=== PATIENT | male | born 1935 | race Caucasian/White ===

== ENCOUNTER 2017-09-11 15:04 | Inpatient (IN) | payer MEDICARE, SELFPAY ==
[2017-09-11] VITALS (13 sets, daily range): BP systolic 133–173; BP diastolic 72–93; PULSE 90–122; RESP 18–27; TEMP 36.8–37; O2SAT 93–99; BMI 23.2; BMI 22.1
--- NOTE | 2017-09-11 15:35 | EKG12_ITS ---
Test Reason : REPEAT Blood Pressure : / mmHG Vent. Rate : 117 BPM Atrial Rate : 117 BPM P-R Int : 000 ms QRS Dur : 076 ms QT Int : 334 ms P-R-T Axes : 000 -59 077 degrees QTc Int : 465 ms Normal sinus rhythm with premature ventricular or aberrantly conducted complexes Low voltage QRS Left anterior fascicular block Inferior infarct , age undetermined Abnormal ECG Confirmed by RACHID DE LUNA ([id number]), subeditor SULAIMAN CM ([id number]) on 09/13/2017 2:42:53 PM Referred By: HOWIE Confirmed By:RACHID DE LUNA
--- NOTE | 2017-09-11 15:35 | RAD_ITS ---
STUDY: X-RAY CHEST REASON FOR EXAM: Male, 82 years old. Shortness of breath. TECHNIQUE: Portable frontal COMPARISON: June 16, 2015 FINDINGS: There are right basilar ill-defined opacities. Normal size heart. Normal mediastinum and gen. Normal visualized pulmonary arteries. There is atherosclerotic calcification of the aortic arch with tortuosity. Normal visualized thoracic spine. Normal visualized ribs, clavicles, and shoulders. There is no demonstrated abnormality of the visualized soft tissue structures of the upper abdomen. RAD/Chest 1 View (Portable) IMPRESSION: Right basilar ill-defined opacities may reflect underlying atelectasis and/or evolving pneumonia. Electronically Signed: Gricelda Acosta MD at 17:51 EST Tel , Service support ,
--- NOTE | 2017-09-11 15:38 | ED.DCSUM_ITS ---
- ER Visit Summary Date of Service: 09/11/17 Chief Complaint: Shortness of breath History of Present Illness: The patient is a 82 M presenting with shortness of breath that started yesterday. He complains of cough and states it is sometimes productive. He denies fever. He states that the shortness of breath is worsened when he exerts himself. He does not have home O2. He states he ran out of his blood pressure medications a couple of days ago. He is a smoker. Physical Examination: Vitals are stable. Patient is afebrile. Alert no acute distress. HEENT exam is unremarkable. Neck is supple. Lungs are diminished bilaterally. Heart is regular rate and rhythm. Abdomen is soft nontender nondistended. Extremities are unremarkable. Skin is warm and dry. No focal neurologic deficit. Remainder of exam is unremarkable. Emergency Department Course and Treatment: Patient was given albuterol and atrovent aerosols. EKG is sinus tachycardia rate of 114. He was given IV fluid. He later began to complain of nausea and was given Zofran. CBC unremarkable. Chemistries show glucose 114. Troponin is negative. D-dimer is negative. Lactic acid is 3.0. Influenza negative. Chest x-ray was obtained and shows evolving pneumonia. He later complained of chest pain. He was given aspirin. Repeat EKG was obtained and shows afib rate of 117. He was given metoprolol. He was given a GI cocktail. Blood cultures were sent. He was given Levaquin IV. Discussed with Dr Woo for admission. Disposition: Admission Impression: Severe sepsis, community acquired pneumonia, atrial fibrillation This note was generated with [employer] dictation software. It may contain incorrect words, spelling, and punctuation that were not noted in review of the chart prior to signing ED Disposition - Plan for ED Patient: Disposition: Acute Care Hospital [facility] Chief Complaint: Shortness of Breath
[2017-09-11] MEDS: Ipratropium/Albuterol Sulfate 3 ML AMPUL.NEB INHALATION ×2 (15:48→23:00)
[2017-09-11] MEDS: Albuterol 2.5 MG/3 ML VIAL.NEB. INHALATION ×2 (16:07→16:17)
[2017-09-11 16:11] LABS: Absolute Neutrophil Count 7.9 X10^3/uL (2.0-7.7); Basophil# 0.03 X10^3/uL; Basophil% 0.3 % (0-1); Eosinophil# 0.02 X10^3/uL; Eosinophils% 0.2 % (0-5); Hematocrit 39.5 % (40-54); Hemoglobin 13.8 g/dl (13.0-16.5); Mean Corp Hgb Conc 34.9 g/gl (32-36); Mean Corpuscular Hgb 32.8 pg (27.0-32.0); Mean Corpuscular Volume 93.8 fL (80-94); Mean Platelet Vol. 9.4 fl (6.2-12.0); Monocyte# 0.47 X10^3/uL; Monocyte% 4.5 % (0-10); Neutrophil # 7.85 X10^3/uL (2.7-7.7); Neutrophil % 74.9 % (47-70); Platelet Count 316 K/mm3 (150-450); RBC Distribution Width CV 13.7 % (11.6-14.6); RBC Distribution Width SD 46.8 fl (35.1-43.9); Red Blood Count 4.21 M/mm3 (4.6-6.2); White Blood Count 10.5 K/mm3 (4.4-11.0)
[2017-09-11] MEDS: Ondansetron 4 MG/2 ML Vial IV (16:12)
[2017-09-11 16:15] LABS: Anion Gap 15 (5-15); BUN 10 mg/dL (7-18); Calcium,Total 8.6 mg/dL (8.5-10.1); Chloride 101 mmol/L (98-107); Creatinine, Serum 0.83 mg/dL (0.70-1.30); EST Glomerular Filtration Rate 94 mL/min (>60); Est Glom Filt Rate - Afr Amer 114 mL/min (>60); Estimated Creatinine Clearance 73.08 ml/min; Glucose 114 mg/dL (74-106); POSITIVE COUNT NO; POSITIVE DIFFERENTIAL NO; POSITIVE MORPHOLOGY NO; Potassium 4.1 mmol/L (3.5-5.1); Sodium Level 137 mmol/L (136-145)
[2017-09-11 16:25] LABS: D-Dimer Quantitative (DVT/PE) 0.35 FEU/ug/m (0.27-0.49)
[2017-09-11] MEDS: 0.9% Normal Saline 1,000 ML 999 ML IV (17:52)
--- NOTE | 2017-09-11 18:01 | NURSING ---
DR AMIN IN WITH PATIENT
--- NOTE | 2017-09-11 18:03 | EKG12_ITS ---
Test Reason : SOB Blood Pressure : / mmHG Vent. Rate : 114 BPM Atrial Rate : 114 BPM P-R Int : 232 ms QRS Dur : 076 ms QT Int : 330 ms P-R-T Axes : 000 -54 057 degrees QTc Int : 454 ms Sinus tachycardia with 1st degree A-V block Left anterior fascicular block Inferior infarct , age undetermined Abnormal ECG Confirmed by RACHID DE LUNA ([id number]), editorial director SULAIMAN CM ([id number]) on 09/13/2017 2:43:08 PM Referred By: HOWIE/PASTOR Confirmed By:RACHID DE LUNA
[2017-09-11] MEDS: Aspirin 325 MG Tablet PO (18:12)
[2017-09-11 19:45] LABS: Reflex Lactate? Y
[2017-09-11] MEDS: 0.9% Normal Saline 1,000 ML 100 ML IV (20:12)
[2017-09-11] MEDS: Metoprolol Tartrate 25 MG Tablet 50 MG PO (20:12)
[2017-09-11] MEDS: Mag Hydrox/Al Hydrox/Simeth 30 ML UDC PO (20:12)
--- NOTE | 2017-09-11 20:13 | ECHOD_ITS ---
Reason For Study: AFIB Procedure This was a 2D Doppler, Color Flow transthoracic echocardiogram. Exam performed portable in patient room. Left Ventricle Normal size and thickness. The estimated ejection fraction is 65 %. Stage 1 diastolic dysfunction. No regional wall motion abnormalities noted. Right Ventricle Normal size and thickness. Normal systolic function. Atria Normal left atrium. Normal right atrium. Normal atrial septum. Mitral Valve The mitral valve is structurally normal. No prolapse or stenosis seen. Tricuspid Valve Normal tricuspid valve. Trivial tricuspid valve insufficiency. Right ventricular systolic pressure estimated to be 31 mmHg. Aortic Valve Normal aortic valve. Trisinus/trileaflet aortic valve. Pulmonic Valve Normal pulmonic valve. Great Vessels Normal aortic root. Normal arch. Normal inferior vena cava. Inferior vena cava collapse with sniff. Pericardium/Pleural No pericardial effusion. MMode/2D Measurements & Calculations LVIDd: 4.0 cm IVSd: 0.98 cm Ao root diam: 3.8 cm RVDd: 3.1 cm LVPWd: 0.92 cm LAV(MOD-bp): 32.5 ml LA A4 area: 14.4 cm2 RA A4 area: 9.9 cm2 LAV(MOD-bp) Indexed: 17.1 ml/m2 LAV(MOD-sp2): 28.2 ml LAV(MOD-sp4): 36.1 ml Doppler Measurements & Calculations MV E max jordana: 61.6 cm/sec Ao V2 max: 124.1 cm/sec LV V1 max: 84.9 cm/sec MV A max jordana: 105.8 cm/sec Ao max P.2 mmHg LV V1 max P.9 mmHg MV E/A: 0.58 TR max jordana: 254.0 cm/sec TR max P.8 mmHg Interpretation Summary The estimated ejection fraction is 65 %. Stage 1 diastolic dysfunction. Trivial tricuspid valve insufficiency. Right ventricular systolic pressure estimated to be 31 mmHg. In comparison to echo report dated 03/15/2015, no appreciable changes noted. Pt appears to be in NSR. Ordering Physician: Alexys Woo Referring Physician: MARIBELL GANN Performed By: Yen Last, CHEL, RVT
--- NOTE | 2017-09-11 21:16 | HP.PCM_ITS ---
Problem List (1) Shortness of breath Status: Acute History of Present Illness Date of Admission: 09/11/17 Chief Complaint: Shortness of breath The patient is a 82 year old M in the emergency room at [facility] with a chief complaint of increasing shortness of breath ?48 hours. Patient denied any fever, chills, diaphoresis, or purulent sputum production. Patient states he has been coughing but bringing up white sputum. Patient is a poor informant, he had a diagnosis in the past of COPD and denied that he was told that he had such a diagnosis. Patient is also noncompliant with his medications and has been off of his metoprolol for an unknown length of time. Workup in the emergency room included a chest x-ray which showed a right lower lobe infiltrate, CBC which showed a normal white count, lactic acid was elevated at 3, patient's respiratory rate and heart rate were elevated, at the time of my examination, patient appeared to be going into atrial fibrillation. In addition, at the time of my examination, patient complained of lower chest discomfort which I was unable to determine the etiology, he described the chest pain as located over his lower chest area and he described it as a burning sensation. Patient's EKG showed no evidence of ischemic changes, patient's first set of cardiac enzymes were unremarkable and the patient was given a GI cocktail in the emergency room, I did not follow up with him afterwards to see if it helped his symptoms as he was admitted to the floor. On examination, patient had scattered expiratory rhonchi bilaterally, heart rate and rhythm was irregular, limited lower extremity edema was noted, patient did not appear to be in respiratory distress although he was on nasal cannula oxygen at the time. His pulse ox was 96% on 2 L. Patient will be admitted to PCU for severe sepsis, lactic acid will be repeated, patient was given IV Levaquin in the emergency room and this will be continued on the floor, patient will also have his cardiac enzymes cycled, I have started him on Lopressor 50 mg twice a day and he got a dose in the emergency room of 50 mg orally. Patient will have an echocardiogram performed and a follow-up chest x-ray tomorrow, sputum cultures were ordered and follow-up labs. Patient was vague about his alcohol intake, he told me he drinks 8-10 beers a day and then told me he does not do it every day, I decided not to write for CIWA scoring at this time. Past Medical History Past Medical History (Chronic Problems): Chronic Problems Chronic alcohol abuse (Chronic) History of atrial fibrillation (Chronic) Tobacco dependence syndrome (Chronic) History of hypothyroidism (Chronic) History of COPD (Chronic) Allergies No Known Allergies Allergy (Verified 06/16/15 09:23) Home Medications: Ambulatory Orders Medication Instructions Recorded Metoprolol Tartrate [Lopressor 25 mg PO BID #60 tablet 04/01/15 (beta luzmaria)] Surgical History: cataract Psychiatric History: No pertinent psych hx Lives: With Family Smoking Status: Current every day smoker Tobacco Use: Cigarettes Alcohol: Heavy Drugs: None - *Family History Maternal History Items: No pertinent history Paternal History Items: No pertinent history Review of Systems Constitutional: Reports: Malaise, Fatigue. Denies: Anorexia, Chills, Fever, Night Sweats, Weakness, Weight Change Eyes: Denies: Blurred vision, Cataracts, Conjunctivae Inflammation, Double vision, Drainage HEENT: Denies: Difficulty Hearing, Difficulty Swallowing, Dysphasia, Ear Pain, Eye Pain, Head Aches, Hearing Changes, Nasal bleeding, Nasal Congestion, Post Nasal Drip Cardiovascular: Reports: Chest Pain - Patient describes his lower chest pain as burning in nature. Denies: Claudication, Chest Pressure, Chest Tightness, Edema , Heaviness, Light Headedness, Orthopnea, Palpitations, Paroxysmal Noc. Dyspnea , Syncope Respiratory: Reports: Cough, Shortness of Breath, Shortness of breath at rest, Shortness of breath upon exertion, Sputum production - White sputum production. Denies: Hemoptysis Gastrointestinal: Denies: Abdominal Pain, Constipation, Diarrhea, Hematemesis, Hematochezia, Nausea, Melena, Vomiting Genitourinary: Denies: Dysuria, Frequency, Hematuria, Hesitancy, Incontinence, Nocturia, Urgency Musculoskeletal: Denies: Arm Pain, Back Pain, Foot Pain, Hand Pain, Joint Pain, Joint stiffness, Joint swelling, Joint Tenderness, Leg Pain Skin: Denies: Dryness, Jaundice, Pruritis, Rash Neurological: Denies: Blurred vision, Double vision, Change in Speech, Slurred speech, Difficulty swallowing, Focal weakness, Headaches, Incoordination, Numbness, Tingling Psychiatric: Denies: Anxiety, Depression, Homicidal Ideations, Suicidal Ideations Endocrine: Denies: Change in Body Habitus, Heat/ Cold Intolerance, Polydipsia, Polyuria Hematologic/ Lymphatic: Denies: Adenopathy, Anemia, Easy Bruising, Easy Bleeding , Petechiae, Purpura VTE Information - Inpt Only VTE Present on Admission: No VTE Mechan Device Prophylaxis: None VTE Pharm Prophylaxis ordered?: Yes Patient Problems: Active and Suspected Problems Shortness of breath (Acute) - Physical Exam General: Alert, Oriented x3, Cooperative, No apparent distress, Well developed, Well nourished HEENT: Atraumatic, PERRLA, EOMI, Normocephalic Oral: Moist Mucosa Neck: Supple, No JVD, Negative Carotid Bruits, No Nuchal Rigidity, Trachea Midline, Thyroid Normal Size and Texture Lungs: Normal air movement, Rhonchi - scattered expiratory rhonchi are noted bilaterally Cardiovascular: No murmurs, PMI Normal, Irregular Rate, No rub noted Abdomen: Bowel Sounds Present, Soft, Non Tender, Non-Distended, No hernias noted Extremities: No clubbing, No cyanosis, No edema, Capillary Refill Less than 3 Seconds Skin: No rashes, No breakdown Musculoskeletal: No Tenderness to Palpation of Joints or Extremities Neurological: Cranial nerves II-XII grossly intact, Neuro grossly intact, Sensory exam intact to light touch and pain, Coordination normal Psych/Mental Status: Normal Affect, Appropriate, - - he is a poor informant regarding his medical history Vital Signs Temp Pulse Resp BP Pulse Ox 98.6 F 108 H 18 137/77 H 96 09/11/17 19:39 09/11/17 20:12 09/11/17 19:39 09/11/17 20:12 09/11/17 19:39 Oxygen Flow Rate 2 Oxygen Delivery Method Nasal Cannula Weight: 71.8 kg Body Mass Index (BMI) 22.1 Laboratory Tests Past 24 Hrs 09/11/17 20:05 Lactic Acid 6.2 H* Assessment/Plan Active and Suspected Problems Shortness of breath (Acute) #1 severe sepsis-secondary to community-acquired right lower lobe pneumonia- patient will be maintained on IV Levaquin, aerosol treatments, sputum culture will be obtained if possible, urine antigens for Legionella and strep pneumoniae were ordered. He will need follow-up chest x-ray #2 right lower lobe community-acquired pneumonia-suspect gram-positive bacterial , treatment as above #3 new onset atrial fibrillation-I have chosen not to fully anticoagulate the patient this time, I will order an echocardiogram, cardiac enzymes, and monitor him on telemetry. Patient will resume his beta-blockers, he may need additional cardiac workup #4 chronic obstructive pulmonary disease with noncompliance-patient continues to smoke a pack of cigarettes a day #5 excessive alcohol use-again it is hard to determine how much the patient actually drinks per day, he will be observed for any signs of alcohol withdrawal #6 hypoxia secondary to right lower lobe pneumonia and chronic obstructive pulmonary disease-oxygen saturation will be monitored Code Visit Inpatient E&M: 47698 Init Hosp L3
[2017-09-11] MEDS: 0.9% Normal Saline 1,000 ML IV.SOLN. 1000 ML IV (21:26)
[2017-09-11] MEDS: Pantoprazole Sodium 40 MG Tablet PO (21:26)
[2017-09-11] MEDS: Heparin Injection 5,000 UNITS/ML Syringe 5000 UNITS SC (21:29)
[2017-09-11] MEDS: Atorvastatin Calcium 20 MG Tablet PO (21:29)
[2017-09-11 23:28] LABS: Lactic Acid 3.9 mmol/L (0.4-2.0)
[2017-09-12] VITALS (21 sets, daily range): BP systolic 124–147; BP diastolic 67–89; PULSE 91–114; RESP 16–30; TEMP 36.4–37; O2SAT 96–99
[2017-09-12 02:09] LABS: Bacteria 0 SEEN /hpf (None Seen); Mucous, Urine 0 SEEN /hpf (<or=2+); Red Blood Cells-Urine 0 SEEN /hpf (0-5)
[2017-09-12 02:11] LABS: Color, Urine Yellow (Yellow); Glucose, Dipstick 1000 mg/dl (Normal); Ketone-Dipstick 15 mg/dl (Negative); Leukocyte Esterase-Dipstick 25 /ul (Negative); Nitrite-Dipstick Positive (Negative); Occult Blood-Urine 10 /ul (Negative); Protein-Dipstick 15 mg/dl (Negative); Urine Bilirubin Dipstick Negative (Negative); Urine Clarity Clear (Clear); Urine Urobilinogen Normal (Normal)
[2017-09-12 02:19] LABS: Amorphous Sediment 1+; Squamous Epithelial Cells - UA 10-25 SEEN /hpf (0-5); White Blood Cells 0-5 SEEN /hpf (0-5)
[2017-09-12] MEDS: 0.9% Normal Saline 1,000 ML 100 ML IV ×2 (03:42→19:48)
[2017-09-12] MEDS: Heparin Injection 5,000 UNITS/ML Syringe 5000 UNITS SC (05:10)
[2017-09-12 05:56] LABS: Hematocrit 37.7 % (40-54); Hemoglobin 12.7 g/dl (13.0-16.5); Mean Corp Hgb Conc 33.7 g/gl (32-36); Mean Corpuscular Hgb 32.2 pg (27.0-32.0); Mean Corpuscular Volume 95.7 fL (80-94); Platelet Count 289 K/mm3 (150-450); RBC Distribution Width CV 13.9 % (11.6-14.6); RBC Distribution Width SD 48.5 fl (35.1-43.9); Red Blood Count 3.94 M/mm3 (4.6-6.2); White Blood Count 13.9 K/mm3 (4.4-11.0)
[2017-09-12 06:23] LABS: Scan Indicated on CBC? Y/N NO
[2017-09-12] MEDS: Ipratropium/Albuterol Sulfate 3 ML AMPUL.NEB INHALATION ×3 (07:29→19:31)
[2017-09-12] MEDS: LORazepam 2 MG/ML Syringe IV ×3 (10:15→21:59)
[2017-09-12] MEDS: Aspirin E.C. 81 MG Tablet PO (10:27)
[2017-09-12] MEDS: Pantoprazole Sodium 40 MG Tablet PO (10:29)
[2017-09-12] MEDS: Metoprolol Tartrate 50 MG Tablet PO ×2 (10:29→21:48)
--- NOTE | 2017-09-12 10:58 | RAD_ITS ---
STUDY: X-RAY CHEST REASON FOR EXAM: Male, 82 years old. Sepsis. TECHNIQUE: AP and lateral views of the chest. COMPARISON: Comparison is made with prior study dated September 11, 2017. FINDINGS: EKG electrodes are seen. Since prior study, there has been progressive infiltrate in the right lower lobe. The left lung is stable. There is no demonstrated pleural abnormality. Normal size heart. Normal mediastinum and gen. Normal visualized pulmonary arteries. There is atherosclerotic calcification of the aortic arch with tortuosity. There are diffuse degenerative changes of the visualized thoracic spine. Normal visualized ribs, clavicles, and shoulders. There is no demonstrated abnormality of the visualized soft tissue structures of the upper abdomen. RAD/Chest PA and Lateral IMPRESSION: Progressive right lower lobe infiltrate. Electronically Signed: Mario Thompson MD at 14:30 EST Tel [phone], Service support ,
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
[2017-09-12] MEDS: Folic Acid 1 MG Tablet PO ×2 (12:53)
[2017-09-12] MEDS: Multivitamins,Ther W-Minerals Tablet 1 TABLET PO ×2 (12:53)
[2017-09-12] MEDS: Thiamine Hydrochloride 100 MG Tablet PO ×2 (12:54)
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
--- NOTE | 2017-09-12 13:24 | CASEMGMT ---
Face to Face with patient for initial transition planning/care coordination assessment. RN NEISHA introduced self and role at [facility], pt voices understanding and consents to assessment at this time. Pt is sitting up in bed in no distress at this time. Pt A/O x4 at this time and answers all questions appropriately at this time. Pt is hard of hearing. Care providers, pharmacy, and demographics verified. See attached link. Pt voices no further concerns/needs at this time. Advised pt to ask for CM if any further questions/concerns/needs arise, voices understanding. CM to follow for any further discharge planning/needs. PLAN: TBD SStcristiane ZAMARRIPA CM
[2017-09-12 14:18] LABS: Thyroid Stim Hormone (TSH) 1.38 uIU/mL (0.358-3.74)
[2017-09-12 18:25] LABS: Lactic Acid 3.8 mmol/L (0.4-2.0)
[2017-09-12 21:37] LABS: Reflex Lactate? Y
[2017-09-12] MEDS: Atorvastatin Calcium 20 MG Tablet PO (21:48)
[2017-09-12] MEDS: 0.9% NaCl Peripheral Flush Adult/Peds IV (22:00)
[2017-09-12 22:38] LABS: Lactic Acid 1.4 mmol/L (0.4-2.0)
[2017-09-13] VITALS (19 sets, daily range): BP systolic 119–155; BP diastolic 67–98; PULSE 72–110; RESP 16–22; TEMP 36.7–37.2; O2SAT 96–98
[2017-09-13] MEDS: 0.9% NaCl Peripheral Flush Adult/Peds IV ×3 (00:57→10:20)
[2017-09-13] MEDS: LORazepam 2 MG/ML Syringe IV ×4 (00:59→10:18)
[2017-09-13] MEDS: Ipratropium/Albuterol Sulfate 3 ML AMPUL.NEB INHALATION ×4 (01:17→20:10)
[2017-09-13] MEDS: 0.9% Normal Saline 1,000 ML 100 ML IV ×2 (05:06→18:03)
[2017-09-13 05:26] LABS: Bedside Glucose 100 mg/dL (70-110)
[2017-09-13 06:32] LABS: Hematocrit 34.9 % (40-54); Hemoglobin 11.9 g/dl (13.0-16.5); Mean Corp Hgb Conc 34.1 g/gl (32-36); Mean Corpuscular Hgb 33.1 pg (27.0-32.0); Mean Corpuscular Volume 97.2 fL (80-94); Platelet Count 233 K/mm3 (150-450); RBC Distribution Width CV 13.6 % (11.6-14.6); RBC Distribution Width SD 46.5 fl (35.1-43.9); Red Blood Count 3.59 M/mm3 (4.6-6.2); White Blood Count 12.7 K/mm3 (4.4-11.0)
[2017-09-13 06:34] LABS: International Normalized Ratio 1.2; Prothrombin Time (Protime)PT. 14.3 SECONDS (11.7-14.9)
[2017-09-13 06:35] LABS: Scan Indicated on CBC? Y/N NO
[2017-09-13 06:48] LABS: Anion Gap 8 (5-15); BUN 12 mg/dL (7-18); BUN/Creat Ratio 17.4 RATIO (10-20); Calcium,Total 7.6 mg/dL (8.5-10.1); Chloride 99 mmol/L (98-107); Cholesterol 108 mg/dL (200); Creatinine, Serum 0.69 mg/dL (0.70-1.30); EST Glomerular Filtration Rate 116 mL/min (>60); Est Glom Filt Rate - Afr Amer 141 mL/min (>60); Estimated Creatinine Clearance 57.84 ml/min; Glucose 91 mg/dL (74-106); High Density Lipoprotein 63 mg/dL; Potassium 3.7 mmol/L (3.5-5.1); Sodium Level 135 mmol/L (136-145); Triglycerides 53 mg/dL; Very Low Density Lipoprotein 11 mg/dL (5-40)
[2017-09-13] MEDS: Thiamine Hydrochloride 100 MG Tablet PO ×2 (09:26→18:03)
[2017-09-13] MEDS: Aspirin E.C. 81 MG Tablet PO (09:26)
[2017-09-13] MEDS: Metoprolol Tartrate 50 MG Tablet PO ×2 (09:26→21:32)
[2017-09-13] MEDS: Pantoprazole Sodium 40 MG Tablet PO (09:26)
[2017-09-13 11:36] LABS: Bedside Glucose 96 mg/dL (70-110)
--- NOTE | 2017-09-13 14:39 | CASEMGMT ---
SW called patient's daughter, Cassandra. She said she talked with patient and her brothers and they do not want patient to go to a half-way. They are going to stop letting anyone smoke in the house in order to help patient smoke less and maybe even quit. SONAL explained to her that right now patient is not in any shape to be returning home due to his weakness and shakiness. She said she thinks he needs to go to a half-way also. SONAL told her SW will follow and assist with d/c planning. Zahra RODRIGUEZ MSW
[2017-09-13 16:36] LABS: Bedside Glucose 149 mg/dL (70-110)
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
[2017-09-13] MEDS: Atorvastatin Calcium 20 MG Tablet PO (21:32)
[2017-09-13 21:46] LABS: Bedside Glucose 111 mg/dL (70-110)
[2017-09-14] VITALS (11 sets, daily range): BP systolic 121–154; BP diastolic 58–91; PULSE 74–98; RESP 18–20; TEMP 36.8–37.1; O2SAT 95–98
[2017-09-14] MEDS: 0.9% Normal Saline 1,000 ML 100 ML IV (04:35)
[2017-09-14 05:51] LABS: Bedside Glucose 104 mg/dL (70-110)
[2017-09-14] MEDS: Ipratropium/Albuterol Sulfate 3 ML AMPUL.NEB INHALATION ×2 (07:22→13:36)
[2017-09-14] MEDS: Folic Acid 1 MG Tablet PO (08:41)
[2017-09-14] MEDS: Metoprolol Tartrate 50 MG Tablet PO (08:41)
[2017-09-14] MEDS: Aspirin E.C. 81 MG Tablet PO (08:41)
[2017-09-14] MEDS: Thiamine Hydrochloride 100 MG Tablet PO (08:41)
[2017-09-14] MEDS: Multivitamins,Ther W-Minerals Tablet 1 TABLET PO (08:41)
[2017-09-14] MEDS: Pantoprazole Sodium 40 MG Tablet PO (08:42)
[2017-09-14 10:34] LABS: Vitamin B12 216 pg/mL (211-911); Vitamin D,25 Hydroxy 17.4 ng/mL (19.95-100.01)
--- NOTE | 2017-09-14 12:41 | CASEMGMT ---
Physician feels like patient is ready for d/c today. SW spoke with patient, introduced self and role at [facility]. SW told him the physician is ready to d/c him today. SW asked him if he would be willing to go somewhere short term for rehab. He said, Yes I'm pretty weak. SONAL asked him about [facility] as he has been there before. He said his was there and he was okay with that. SONAL called Bouchra at [facility] and made a referral as well as faxed over information. Await their response. SW to also communicate with patient's daughter when more is known. Zahra RODRIGUEZ MSW
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
[2017-09-14 14:59] LABS: Ceruloplasmin 17.5 mg/dL (16.0-31.0)
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
--- NOTE | 2017-09-14 15:46 | CASEMGMT ---
[facility] can take patient. SW called patient's daughter, Cassandra and let her know. She called her brothers and then called SW back and they are all in agreement. SW will let her know when a time is set up. SW called [facility] and they will pick patient up at 6p via cot. SW let patient know as well as RN and patient's daughter Cassandra. She said she will tell her brothers. SONAL also left a voice mail for Bouchra at [facility]. Convalescent was completed on . Plan: [facility] under skilled level of care on a convalescent stay. [facility] transported him via cot. Zahra RODRIGUEZ MSW
--- NOTE | 2017-09-14 15:54 | PCM.TXEXTCAR ---
- Diet 09/11/17 18:07 Diet: Cardiac/Low Cholesterol Food consistency:: Mechanical Soft/Ground Liquid Consistency:: Regular/Thin Dietary Modifications:: Mechanical Soft Diet Type of Dietary Supplement:: Ensure Complete Is pt able to select menu?: No Diet Comments: Assistance as needed w/ setup / intake - Routine Orders/Code Status Routine Lab Work: CBC, BMP - Wound(s) rt middle finger Wound Type: Skin Tear - Therapies Weight Bearing: Full weight bearing Physical Therapy: Eval and Treat Occupational Therapy: Eval and Treat Speech Therapy: Eval and Treat - Allergies/Procedures Done in Hospital Allergies/Adverse Reactions: Allergies No Known Allergies Allergy (Verified 06/16/15 09:23) - Type of Care/Length of Stay Estimated LOS: Convalescent Care Less Than 30 days Type of Care Needed: Skilled Rehab Potential: Fair Prognosis: Fair - Additional Orders/Day of Discharge Day of Discharge: 09/14/17 - Follow Up Care Primary Care Physician: Brandon Hennessy MD [Primary Care Provider] - Within 2 Weeks
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
[2017-09-14 16:11] LABS: Homocysteine 8.7 umol/L (3.2-10.7)
--- NOTE | 2017-09-14 16:20 | NURSING ---
THIS RN TAKING OVER CARE
--- NOTE | 2017-09-14 16:22 | NURSING ---
REPORT GIVEN TO KELLY Black RN
--- NOTE | 2017-09-14 17:22 | NURSING ---
REPORT CALLED TO [facility]
[2017-09-19 11:42] LABS: Methylmalonic Acid Bld 541 nmol/L (0-378)
== END 2017-09-14 18:02 | disposition skilled nursing facility (03) | DRG 871 ==
LOC: ED 16:14 → PCU 18:37
PROVIDERS: Nurse Practitioner Family; Admitting Provider Internal Medicine; Emergency Provider Emergency Medicine; Family Provider Family Medicine; PCP Family Medicine
DX: A41.9 Sepsis, unspecified organism (principal); J13 Pneumonia due to Streptococcus pneumoniae; I48.0 Paroxysmal atrial fibrillation; J44.0 Chronic obstructive pulmonary disease with (acute) lower respiratory infection; R65.20 Severe sepsis without septic shock; E03.9 Hypothyroidism, unspecified; R25.1 Tremor, unspecified; F10.10 Alcohol abuse, uncomplicated; F17.210 Nicotine dependence, cigarettes, uncomplicated; R09.02 Hypoxemia
CPT/HCPCS: 36415; 71045; 71046; 80048; 80061; 81001; 82306; 82390; 82607; 82746; 82962; 83090; 83605; 83735; 83921; 84443; 84484; 85025; 85027; 85379; 85610; 87040; 87449; 87804; 92526; 93005; 93306; 94640; 97110; 97162; 97166; 97530; 99251; 99285; 99406; J7030; A4216; G0463; J2405

== ENCOUNTER 2017-10-31 21:22 | Emergency (ER) | payer MEDICARE, SELFPAY ==
[2017-10-31 21:24] VITALS: BP 117/71; PULSE 68; RESP 18; TEMP 36.4; O2SAT 94; BMI 31.1
--- NOTE | 2017-10-31 23:14 | CT_ITS ---
STUDY: CT BRAIN WITHOUT CONTRAST REASON FOR EXAM: Male, 82 years old. Fall out of wheelchair. Alcohol intoxication. RADIATION DOSAGE (If Supplied By Facility): CTDIvol = ( 44.99 ) mGy, DLP = ( 812.98 ) mGycm TECHNIQUE: Transaxial CT imaging of the brain was performed without administration of intravenous contrast material. Individualized dose optimization techniques were used for this CT. COMPARISON: 06/16/2015. FINDINGS: Normal soft tissue structures. Normal calvarium. There is mild cerebral atrophy with widening of the extra-axial spaces and ventricular dilatation. There are areas of decreased attenuation within the white matter tracts of the supratentorial brain, consistent with microvascular disease changes. Normal basal ganglia and thalami. Normal brainstem. There is mild cerebellar atrophy. There is no intracranial hemorrhage. There are no findings of an acute ischemic infarction. Normal visualized paranasal sinuses. CT/Brain/Head without Contrast IMPRESSION: No acute abnormality. Mild atrophy and chronic white matter disease. Electronically Signed: Panda Cruz MD at 23:45 EDT , Service support ,
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
[2017-11-01 00:10] VITALS: BP 118/71; PULSE 70; RESP 16; O2SAT 99
--- NOTE | 2017-11-01 00:12 | ED.VISSUMM ---
- ER Visit Summary Date of Service: 11/01/17 Chief Complaint: Fall History of Present Illness: The patient is a 82 M who reportedly fell backwards getting out of his wheelchair and hit his head. He did not lose consciousness. He denies any complaint at this time wants to eat and drink. Past history significant for paroxysmal A. fib, but I do not see that he is on anticoagulants. He is an alcoholic and drinks up to 30 cans of beer a day. He is a smoker. Physical Examination: Vital signs are unremarkable. Patient's lying in bed no acute distress. Patient does smell of alcoholic beverage. He is alert answers questions appropriately. Head and neck examination reveals a hematoma to the left posterior parietal scalp with an abrasion. There is dried blood at the left nare with no bony tenderness. He has mild tenderness palpation of the lower C-spine. Heart is regular rate and rhythm. Lung sounds are clear. Abdomen is soft nontender. Extremity examination reveals no abrasions or lacerations. Neuro exam reveals the patient is alert and oriented. He is moving all 4 extremities. Test Results: CT scan of the head shows no acute abnormality. CT the C-spine shows no acute ab normality's. Emergency Department Course and Treatment: Scalp abrasion was cleansed and does not require suture. Blood is cleaned from the face and does not reveal any underlying lacerations. At this time family will take the patient home and care for him. Treatment Plan: [] Disposition: Discharge Impression: 1. Mechanical fall 2. Scalp contusion with hematoma This note was generated with [employer] dictation software. It may contain incorrect words, spelling, and punctuation that were not noted in review of the chart prior to signing ED Disposition - Plan for ED Patient: Chief Complaint: Fall Referrals: Brandon Hennessy MD [Primary Care Provider] -
--- NOTE | 2017-11-01 00:14 | ED.DEP ---
ED Disposition - Plan for ED Patient: Disposition: Home or Assisted Living Chief Complaint: Fall Instructions: ED Mechanical Fall, ED Contusion Scalp Referrals: Brandon Hennessy MD [Primary Care Provider] - 1-2 Weeks
[2017-11-01 01:04] VITALS: BP 117/81; PULSE 84; RESP 18; O2SAT 99
== END 2017-11-01 01:04 | disposition home or self-care (01) ==
PROVIDERS: Emergency Provider Emergency Medicine; Family Provider Family Medicine; PCP Family Medicine
DX: S00.03XA Contusion of scalp, initial encounter (principal); S00.01XA Abrasion of scalp, initial encounter; W05.0XXA Fall from non-moving wheelchair, initial encounter; Y93.89 Activity, other specified; Y92.9 Unspecified place or not applicable; I48.0 Paroxysmal atrial fibrillation; I10 Essential (primary) hypertension; J44.9 Chronic obstructive pulmonary disease, unspecified; E78.00 Pure hypercholesterolemia, unspecified; F17.200 Nicotine dependence, unspecified, uncomplicated; F10.20 Alcohol dependence, uncomplicated; Y90.9 Presence of alcohol in blood, level not specified; Z79.82 Long term (current) use of aspirin; Z79.899 Other long term (current) drug therapy
CPT/HCPCS: 70450; 72125; 99283

== ENCOUNTER 2018-03-08 15:39 | Emergency (ER) | payer MEDICARE, SELFPAY ==
[2018-03-08 15:39] VITALS: BP 157/92; PULSE 77; RESP 18; TEMP 36.8; O2SAT 99; BMI 23.6
[2018-03-08 16:03] VITALS: PULSE 73; RESP 22
[2018-03-08] MEDS: Albuterol 2.5 MG/3 ML VIAL.NEB. INHALATION ×3 (16:03)
[2018-03-08 16:05] LABS: Absolute Lymphocyte Count 1.65 X10^3/ul (0.83-4.51); Absolute Neutrophil Count 8.9 X10^3/uL (2.0-7.7); Basophil# 0.03 X10^3/uL; Basophil% 0.3 % (0-1); Eosinophil# 0.01 X10^3/uL; Eosinophils% 0.1 % (0-5); Hematocrit 38.5 % (40-54); Hemoglobin 13.4 g/dl (13.0-16.5); Lymphocyte # 1.65 X10^3/ul (4.0); Lymphocyte % 14.7 % (19-41); Mean Corp Hgb Conc 34.8 g/gl (32-36); Mean Corpuscular Hgb 31.8 pg (27.0-32.0); Mean Corpuscular Volume 91.2 fL (80-94); Mean Platelet Vol. 8.7 fl (6.2-12.0); Monocyte# 0.65 X10^3/uL; Monocyte% 5.8 % (0-10); Neutrophil # 8.85 X10^3/uL (2.7-7.7); Platelet Count 241 K/mm3 (150-450); RBC Distribution Width CV 14.1 % (11.6-14.6); RBC Distribution Width SD 47.1 fl (35.1-43.9); Red Blood Count 4.22 M/mm3 (4.6-6.2); White Blood Count 11.2 K/mm3 (4.4-11.0)
[2018-03-08 16:06] LABS: POSITIVE COUNT NO; POSITIVE DIFFERENTIAL NO; POSITIVE MORPHOLOGY NO
--- NOTE | 2018-03-08 16:07 | ED.DCSUM_ITS ---
- ER Visit Summary Date of Service: 03/08/18 Chief Complaint: Shortness of breath History of Present Illness: The patient is a 82 M presents with shortness of breath that started earlier this morning. He is much improved upon arrival. He also hit his head this morning. He thinks he may have passed out afterwards. He has no neck pain. He did feel some chest tightness he had shortness of breath and cough. He has a history of this and COPD, he says he has had symptoms like this in the past. No recent fever or chills. No abdominal pain. Currently has no chest pain, headache or vision changes. He is a daily drinker. Physical Examination: Not appear in acute distress. Is conversive, speaks in full sentences. He has a small abrasion over his scalp. Moist mucous membranes, no obvious facial deformity No C-spine tenderness supple neck. Regular rate and rhythm without any obvious murmurs Course and slightly wheezy lungs bilaterally speaking in full sentences without any obvious respiratory distress Abdomen soft and nontender no guarding or rebound Moves all extremities without any difficulty or pain. Skin does not show any obvious rashes or lesions, no trauma. Alert oriented ?3 with no gross focal deficit. He has an essential tremor which is chronic. Emergency Department Course and Treatment: He received nebulizers, prednisone p.o. He significantly improve his lungs are completely clear. He has a normal chest x-ray. Because of the head injury and alcohol use a CT was done which was also negative. He does have chronic hyponatremia his sodium today is 125 I believe this is secondary to drinking beer. This is quite chronic for him and I will not replace it since it will likely decrease again. He requests discharge. I will discharge to follow-up with PCP. Disposition: Discharge stable condition Impression: COPD exacerbation This note was generated with [employer] dictation software. It may contain incorrect words, spelling, and punctuation that were not noted in review of the chart prior to signing ED Disposition - Plan for ED Patient: Disposition: Home or Assisted Living Chief Complaint: Shortness of Breath Diagnosis: COPD exacerbation Instructions: ED COPD Flare Referrals: Brandon Hennessy MD [Primary Care Provider] - 5-7 Days
[2018-03-08 16:08] VITALS: O2SAT 96
[2018-03-08] MEDS: predniSONE 20 MG Tablet 60 MG PO (16:08)
[2018-03-08 16:15] LABS: Anion Gap 10 (5-15); BUN 6 mg/dL (7-18); BUN/Creat Ratio 9.3 RATIO (10-20); Calcium,Total 8.5 mg/dL (8.5-10.1); Chloride 91 mmol/L (98-107); Creatinine, Serum 0.65 mg/dL (0.70-1.30); EST Glomerular Filtration Rate 125 mL/min (>60); Est Glom Filt Rate - Afr Amer 152 mL/min (>60); Estimated Creatinine Clearance 60.66 ml/min; Glucose 106 mg/dL (74-106); Potassium 4.2 mmol/L (3.5-5.1); Sodium Level 125 mmol/L (136-145)
[2018-03-08 17:49] VITALS: BP 146/91; PULSE 78; PULSE 79; RESP 18; O2SAT 98
== END 2018-03-08 18:15 | disposition home or self-care (01) ==
PROVIDERS: Emergency Provider Emergency Medicine; Family Provider Family Medicine; PCP Family Medicine
DX: J44.1 Chronic obstructive pulmonary disease with (acute) exacerbation (principal); E87.1 Hypo-osmolality and hyponatremia; E03.9 Hypothyroidism, unspecified; I48.2 Chronic atrial fibrillation; Z79.82 Long term (current) use of aspirin; Z79.899 Other long term (current) drug therapy; Z72.0 Tobacco use
CPT/HCPCS: 70450; 71045; 80048; 84484; 85025; 93005; 94640; 99285; A4216

== ENCOUNTER 2018-04-10 17:51 | Emergency (ER) | payer MEDICARE, SELFPAY ==
[2018-04-10 17:52] VITALS: BP 111/63; PULSE 87; RESP 15; TEMP 36.1; O2SAT 96; BMI 23.0
--- NOTE | 2018-04-10 19:01 | ED.RN ---
PT IS WALKING HIMSELF AROUND WAITING ROOM AND HALLWAY IN HIS WHEELCHAIR. PT IS STATING HE WILL PASS OUT IF HE DOESN'T GET TO LAY DOWN SOON. PT GIVEN A GLASS OF WATER AND AGAIN EXPLAINED HE WILL GET BACK SOON WE CAN.
--- NOTE | 2018-04-10 19:08 | ED.RN ---
PT IS GETTING AGGRAVATED BECAUSSE HE CAN'T LAY DOWN. HE STATES HE WANTS TO GO HOME IF HE CAN'T LAY DOWN. GAVE HIM ANOTHER DRINK AND AGAIN EXPLAINED THE SITUATION TO HIM. PTS MASON TERAN IS [address]
[2018-04-10 20:05] VITALS: PULSE 74; RESP 21; O2SAT 97
[2018-04-10 20:10] VITALS: O2SAT 97
--- NOTE | 2018-04-10 20:12 | EKG12_ITS ---
Test Reason : SOB Blood Pressure : / mmHG Vent. Rate : 075 BPM Atrial Rate : 075 BPM P-R Int : 220 ms QRS Dur : 082 ms QT Int : 424 ms P-R-T Axes : 061 -37 036 degrees QTc Int : 473 ms Sinus rhythm with 1st degree A-V block Left axis deviation Inferior infarct , age undetermined Abnormal ECG Confirmed by MARILYN CORMIER, ROSA ([id number]), map editor SULAIMAN CM ([id number]) on 04/11/2018 1:35:00 PM Referred By: NATALIE Confirmed By:ROSA SANDERS MD
--- NOTE | 2018-04-10 20:13 | CT_ITS ---
STUDY: CT CHEST WITHOUT CONTRAST REASON FOR EXAM: Male, 82 years old. Shortness of breath. History of atrial fibrillation. RADIATION DOSAGE (If Supplied By Facility): CTDIvol = ( 15.11 ) mGy, DLP = ( 611.59 ) mGycm TECHNIQUE: Transaxial imaging was performed without the administration of intravenous contrast material. Multiplanar coronal and sagittal images were reformatted. Individualized dose optimization techniques were used for this CT. COMPARISON: Chest, March 08, 2018. FINDINGS: The lungs are hyperexpanded. There is a small calcified nodule in the posterior aspect of the right middle lobe measuring 4 mm. This is best seen on image 35 of series 4. A small spiculated density in the anterior left upper lobe measuring 3 x 2 mm. This is best seen on image 41. A 4 mm calcified granuloma is seen posterior to the right mainstem bronchus on image 46. A calcified granuloma measuring 3 mm in diameter is seen in the superior segment of left lower lobe (image 62, series 4. There is also focal consolidation versus pleural base mass in the medial left lung base . Normal heart and pericardium. There are calcifications of the coronary arteries. There are multiple small mediastinal lymph nodes. Normal hilar regions. Normal unenhanced pulmonary arteries. There is atherosclerotic calcification of the aortic arch with tortuosity and elongation of the aortic arch and descending thoracic aorta. There are multi-level degenerative changes of the thoracic spine. The liver appears cirrhotic with prominent nodular left lower lobe. The abdomen is otherwise unremarkable. CT/Chest without Contrast IMPRESSION: 1. Small spiculated lesion in the left upper lobe. Follow-up in 3-6 months is recommended. 2. Old granulomatous disease. 3. Atherosclerotic changes of coronary arteries and thoracic aorta. 4. Pleural-based mass versus consolidation in the medial right lung base. 5. Question cirrhotic liver. Electronically Signed: Dajuan Bond DO at 21:50 EDT Tel [phone], Service support ,
--- NOTE | 2018-04-10 20:17 | ED.DCSUM_ITS ---
- ER Visit Summary Date of Service: 04/10/18 Chief Complaint: Shortness of breath] History of Present Illness: The patient is a 82 M who presents for 2 days of shortness of breath. Patient states he has had worsening shortness of breath since yesterday, with associated cough. Symptoms were worse when he woke up today. He denies any fever, chest pain, nausea or vomiting. He is complaining of right upper quadrant tenderness. Patient has history of COPD and is an active smoker. History of hypertension. Physical Examination: Vital signs: afebrile, hemodynamically stable, no hypoxia on room air General: well nourished, well developed, unkempt appearing, in no distress Skin: warm, dry, no rash, no pallor, contusion with central abrasion to the lower lateral right rib margin, tenderness to palpation of the anterior and lateral lower ribs HEENT: normocephalic and atraumatic; PERRL, EOMI, moist mucous membranes Cardiovascular: regular rate and rhythm without murmurs, no peripheral edema, 2 + pulses all distal extremities Respiratory: No increased work of breathing, lungs are diffusely rhonchorous on inspiration, no expiratory wheezing, rhonchi or rales Abdominal: Abdomen is soft, nontender including no right upper quadrant tenderness with normoactive bowel sounds, no guarding or rebound, no masses MSK: Moves all extremities, no deformities, normal strength Neuro: Awake and alert, oriented ?4. No facial droop, sensation and motor function intact and symmetric Test Results: [] Abnormal Lab Results 04/10/18 04/10/18 04/10/18 20:32 20:32 20:32 WBC 6.4 RBC 3.77 L Hgb 12.2 L Hct 35.9 L MCV 95.2 H MCH 32.4 H MCHC 34.0 RDW 14.7 H RDW Differential 50.8 H Plt Count 261 MPV 8.8 Immature Gran % (Auto) 0.200 Neut % (Auto) 48.1 Lymph % (Auto) 34.7 [place] % (Auto) 13.0 H Eos % (Auto) 2.7 Baso % (Auto) 1.3 H Absolute Neuts (auto) 3.1 Absolute Lymphs (auto) 2.22 Total Counted Not Reportable Sodium 129 L Potassium 3.4 L Chloride 95 L Carbon Dioxide 23.0 Anion Gap 11 BUN 6 L Creatinine 0.75 Estim Creat Clear Calc 60.29 Est GFR (MDRD) Af Amer 128 Est GFR (MDRD) Non-Af 106 BUN/Creatinine Ratio 8.0 L Glucose 96 Calcium 7.9 L Troponin I < 0.015 B-Natriuretic Peptide 92.3 Clinical Impression(s) from Imaging Studies Chest CT 04/10/18 20:13 IMPRESSION: 1. Small spiculated lesion in the left upper lobe. Follow-up in 3-6 months is recommended. 2. Old granulomatous disease. 3. Atherosclerotic changes of coronary arteries and thoracic aorta. 4. Pleural-based mass versus consolidation in the medial right lung base. 5. Question cirrhotic liver. Electronically Signed: Dajuan Bond DO at 21:50 EDT Tel [phone], Service support , Medications Given Sodium Chloride () 500 mls @ 999 mls/hr IV .Q31M ONE Last Admin: 04/10/18 20:30 Dose: 999 mls/hr Discontinued Medications Albuterol Sulfate (Ventolin Aerosols) 2.5 mg INHALATION Q20M RYANN Stop: 04/10/18 20:56 Last Admin: 04/10/18 20:38 Dose: 2.5 mg Admin: 04/10/18 20:38 Dose: 2.5 mg Admin: 04/10/18 20:18 Dose: 2.5 mg Albuterol/Ipratropium (Duoneb) 3 ml INHALATION X1 ONE Stop: 04/10/18 20:13 Last Admin: 04/10/18 20:18 Dose: 3 ml Prednisone () 40 mg PO X1 ONE Stop: 04/10/18 20:13 Last Admin: 04/10/18 21:03 Dose: 40 mg Emergency Department Course and Treatment: Patient has adventitious breath sounds diffusely on his exam, and he does have a history of COPD he was given breathing treatments for this. He was also given a dose of prednisone. Workup was performed due to the complaint of the lower chest pain, especially with the bruising, as there is concern the patient may have fallen and either has fractured ribs, possible pneumonia, or pneumothorax. EKG showed a sinus rhythm with no ischemic changes. First-degree block present. Troponin negative. BNP was within normal limits. No leukocytosis. Labs showed very mild hyponatremia. No hepatic derangements. CT of the chest was performed and showed some nodules and a questionable left lung base consolidation versus a mass. There were no noted rib fractures or right lower lung pathology. Patient was started on azithromycin for coverage of possible pneumonia as well as treatment of COPD exacerbation. On reevaluation he felt much better and wanted to go home. We discussed the lung nodules on his CT scan that he really needs to follow-up with his primary care provider for surveillance of these to make sure they do not progress to lung cancer. Patient stated he would. He was discharged home with a prescription for a prednisone burst and antibiotics. Treatment Plan: [] Disposition: [] Impression: COPD exacerbation, lung nodules, community-acquired pneumonia This note was generated with [employer] dictation software. It may contain incorrect words, spelling, and punctuation that were not noted in review of the chart prior to signing ED Disposition - Plan for ED Patient: Disposition: Home or Assisted Living Chief Complaint: Shortness of Breath Instructions: ED COPD Flare, ED Pneumonia Adult, ED Nodule Solitary Pulmonary Prescriptions: Azithromycin [Zithromax Z-[place]] 250 mg PO UD #1 box Prednisone [Deltasone] 40 mg PO DAILY #10 tab Referrals: Brandon Hennessy MD [Primary Care Provider] - 3-5 Days if not improving Additional Instructions: You have a couple lung nodules that need follow-up. Please make an appointment with your family doctor for further evaluation and management of nodules. Take the antibiotic and prednisone as prescribed for the flare of your COPD and the concern for a small left lung pneumonia. Take your breathing treatments as needed at home as you have been prescribed by her doctor. If you have any worsening of your condition or any new concerning symptoms, please return immediately to the emergency department for another evaluation.
[2018-04-10] MEDS: Ipratropium/Albuterol Sulfate 3 ML AMPUL.NEB INHALATION (20:18)
[2018-04-10] MEDS: Albuterol 2.5 MG/3 ML VIAL.NEB. INHALATION ×3 (20:18→20:38)
[2018-04-10 20:21] VITALS: PULSE 76; RESP 21
[2018-04-10 20:38] VITALS: PULSE 85; RESP 16
[2018-04-10 20:45] LABS: Absolute Lymphocyte Count 2.22 X10^3/ul (0.83-4.51); Absolute Neutrophil Count 3.1 X10^3/uL (2.0-7.7); Basophil# 0.08 X10^3/uL; Basophil% 1.3 % (0-1); Eosinophil# 0.17 X10^3/uL; Eosinophils% 2.7 % (0-5); Hematocrit 35.9 % (40-54); Hemoglobin 12.2 g/dl (13.0-16.5); Lymphocyte # 2.22 X10^3/ul (4.0); Lymphocyte % 34.7 % (19-41); Mean Corpuscular Hgb 32.4 pg (27.0-32.0); Mean Corpuscular Volume 95.2 fL (80-94); Mean Platelet Vol. 8.8 fl (6.2-12.0); Monocyte# 0.83 X10^3/uL; Neutrophil # 3.08 X10^3/uL (2.7-7.7); Neutrophil % 48.1 % (47-70); Platelet Count 261 K/mm3 (150-450); RBC Distribution Width CV 14.7 % (11.6-14.6); RBC Distribution Width SD 50.8 fl (35.1-43.9); Red Blood Count 3.77 M/mm3 (4.6-6.2); White Blood Count 6.4 K/mm3 (4.4-11.0)
[2018-04-10 20:51] LABS: POSITIVE COUNT NO; POSITIVE DIFFERENTIAL NO; POSITIVE MORPHOLOGY NO
[2018-04-10] MEDS: predniSONE 20 MG Tablet 40 MG PO (21:03)
[2018-04-10 21:04] LABS: Anion Gap 11 (5-15); BUN 6 mg/dL (7-18); Calcium,Total 7.9 mg/dL (8.5-10.1); Chloride 95 mmol/L (98-107); Creatinine, Serum 0.75 mg/dL (0.70-1.30); EST Glomerular Filtration Rate 106 mL/min (>60); Est Glom Filt Rate - Afr Amer 128 mL/min (>60); Estimated Creatinine Clearance 60.29 ml/min; Glucose 96 mg/dL (74-106); Potassium 3.4 mmol/L (3.5-5.1); Sodium Level 129 mmol/L (136-145)
[2018-04-10 21:05] VITALS: BP 118/101; PULSE 86; RESP 28; O2SAT 95
[2018-04-10 21:11] LABS: BNP,B-Type NATRIURETIC PEPTIDE 92.3 pg/mL (0-100)
--- NOTE | 2018-04-10 23:30 | ED.DEP ---
ED Disposition - Plan for ED Patient: Disposition: Home or Assisted Living Chief Complaint: Shortness of Breath Instructions: ED COPD Flare, ED Pneumonia Adult, ED Nodule Solitary Pulmonary Prescriptions: Azithromycin [Zithromax Z-[place]] 250 mg PO UD #1 box Prednisone [Deltasone] 40 mg PO DAILY #10 tab Referrals: Brandon Hennessy MD [Primary Care Provider] - 3-5 Days if not improving Additional Instructions: You have a couple lung nodules that need follow-up. Please make an appointment with your family doctor for further evaluation and management of nodules. Take the antibiotic and prednisone as prescribed for the flare of your COPD and the concern for a small left lung pneumonia. Take your breathing treatments as needed at home as you have been prescribed by her doctor. If you have any worsening of your condition or any new concerning symptoms, please return immediately to the emergency department for another evaluation.
[2018-04-11 02:57] VITALS: RESP 18; O2SAT 97
[2018-04-11] MEDS: LORazepam 1 MG Tablet PO (04:27)
[2018-04-11 04:28] VITALS: BP 134/98; PULSE 101; RESP 19; O2SAT 93
--- NOTE | 2018-04-11 04:47 | NURSING ---
PATIENT GOT A HOLD OF A CONTACT TO TAKE HIM HOME. HIS CONTACT IS COMING IN A LITTLE WHILE. THIS NURSE ASKED DR. GUTIERREZ IF IT IS OK FOR THE PATIENT TO GO HOME SINCE HE IS VERY SHAKY. ATIVAN 1 MG PO WAS GIVEN BUT HAS NOT TAKEN EFFECT YET.
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
== END 2018-04-11 05:35 | disposition home or self-care (01) ==
PROVIDERS: Emergency Provider Emergency Medicine; Family Provider Family Medicine; PCP Family Medicine
DX: J44.1 Chronic obstructive pulmonary disease with (acute) exacerbation (principal); J18.9 Pneumonia, unspecified organism; R91.8 Other nonspecific abnormal finding of lung field; I10 Essential (primary) hypertension; F17.200 Nicotine dependence, unspecified, uncomplicated
CPT/HCPCS: 71250; 80048; 83880; 84484; 85025; 93005; 94640; 96360; 96361; 99285; J7030; J7040

== ENCOUNTER 2019-01-08 08:19 | Emergency (ER) | payer MEDICARE, SELFPAY ==
[2019-01-08 08:21] VITALS: BP 131/104; PULSE 78; RESP 30; TEMP 36.5; O2SAT 96; BMI 25.6
[2019-01-08 08:30] VITALS: RESP 30; O2SAT 96
--- NOTE | 2019-01-08 08:31 | RAD_ITS ---
STUDY: X-RAY CHEST REASON FOR EXAM: Male, 83 years old. Shortness of breath, COPD TECHNIQUE: Single AP portable view of the chest. COMPARISON: 03/08/2018 FINDINGS: The lungs are clear and expanded. There is no demonstrated pleural abnormality. Normal size heart. Normal mediastinum and gen. Normal visualized pulmonary arteries. Normal visualized aortic arch and descending thoracic aorta. Normal visualized thoracic spine. Normal visualized ribs, clavicles, and shoulders. There is no demonstrated abnormality of the visualized soft tissue structures of the upper abdomen. RAD/Chest 1 View (Portable) IMPRESSION: Normal x-ray examination of the chest. Electronically Signed: Sarmad Gan MD at 9:04 EDT Tel , Service support ,
--- NOTE | 2019-01-08 08:31 | CT_ITS ---
STUDY: CT BRAIN WITHOUT CONTRAST REASON FOR EXAM: Male, 83 years old. Fall, laceration, headache RADIATION DOSAGE (If Supplied By Facility): CTDIvol = ( 44.99 ) mGy, DLP = ( 779.24 ) mGycm TECHNIQUE: Transaxial CT imaging of the brain was performed without administration of intravenous contrast material. Individualized dose optimization techniques were used for this CT. COMPARISON: 03/08/2018 FINDINGS: Normal soft tissue structures. Normal calvarium. There is moderate cerebral atrophy with widening of the extra-axial spaces and ventricular dilatation. There are areas of decreased attenuation within the white matter tracts of the supratentorial brain, consistent with microvascular disease changes. Normal basal ganglia and thalami. Normal brainstem. Normal cerebellum. There is no intracranial hemorrhage. There are no findings of an acute ischemic infarction. Normal visualized paranasal sinuses. CT/Brain/Head without Contrast IMPRESSION: Chronic involutional changes of the brain. Electronically Signed: Sarmad Gan MD at 9:51 EDT Tel , Service support ,
--- NOTE | 2019-01-08 08:31 | EKG12_ITS ---
Test Reason : FALL Blood Pressure : / mmHG Vent. Rate : 081 BPM Atrial Rate : 081 BPM P-R Int : 232 ms QRS Dur : 080 ms QT Int : 398 ms P-R-T Axes : 082 -46 068 degrees QTc Int : 462 ms Sinus rhythm with 1st degree A-V block Left anterior fascicular block Possible Inferior infarct (cited on or before 10-APR-2018) Abnormal ECG Confirmed by RACHID DE LUNA ([id number]), publications editor TOM CRISTINA ([id number]) on 01/13/2019 10:08:31 AM Referred By: DC Confirmed By:RACHID DE LUNA
--- NOTE | 2019-01-08 08:31 | CT_ITS ---
STUDY: CT CERVICAL SPINE WITHOUT CONTRAST REASON FOR EXAM: Male, 83 years old. Fall, neck pain. RADIATION DOSAGE (If Supplied By Facility): CTDIvol = ( 27.03 ) mGy, DLP = ( 507.88 ) mGycm TECHNIQUE: High resolution transaxial imaging was performed without contrast material. Sagittal and coronal images were reconstructed. Individualized dose optimization techniques were used for this CT. COMPARISON: None FINDINGS: Normal craniovertebral junction. There are degenerative changes of the anterior atlantoaxial articulation. Normal odontoid process. Normal cervical lordosis. Normal vertebral bodies and posterior osseous elements. C2-3: Moderate right facet hypertrophy. No spinal stenosis or neural foraminal stenosis. C3-4: Mild broad disc osteophyte complex and bilateral uncovertebral hypertrophy produces mild spinal stenosis and mild bilateral neural foraminal stenosis. C4-5: Normal endplates. Normal disc height and morphology. Normal central canal and intervertebral neuroforamina. C5-6: Moderate broad disc osteophyte complex and bilateral carotid joint hypertrophy produces mild spinal stenosis and mild bilateral neural foraminal stenosis. C6-7: Normal endplates. Normal disc height and morphology. Normal central canal and intervertebral neuroforamina. C7-T1: Normal endplates. Normal disc height and morphology. Normal central canal and intervertebral neuroforamina. Normal visualized soft tissue structures. CT/Spine Cervical without Contras IMPRESSION: No acute fracture or subluxation Electronically Signed: Sarmad Gan MD at 9:52 EDT Tel , Service support ,
[2019-01-08 08:34] VITALS: O2SAT 96
[2019-01-08 08:54] LABS: Absolute Lymphocyte Count 1.86 X10^3/ul (0.83-4.51); Absolute Neutrophil Count 5.3 X10^3/uL (2.0-7.7); Basophil# 0.05 X10^3/uL; Basophil% 0.6 % (0-1); Eosinophil# 0.08 X10^3/uL; Hematocrit 39.6 % (40-54); Hemoglobin 13.7 g/dl (13.0-16.5); Lymphocyte # 1.86 X10^3/ul (4.0); Mean Corp Hgb Conc 34.6 g/gl (32-36); Mean Corpuscular Hgb 31.6 pg (27.0-32.0); Mean Corpuscular Volume 91.2 fL (80-94); Mean Platelet Vol. 8.6 fl (6.2-12.0); Monocyte# 0.75 X10^3/uL; Monocyte% 9.3 % (0-10); Neutrophil # 5.31 X10^3/uL (2.7-7.7); Neutrophil % 65.9 % (47-70); POSITIVE COUNT NO; POSITIVE DIFFERENTIAL NO; POSITIVE MORPHOLOGY NO; Platelet Count 313 K/mm3 (150-450); RBC Distribution Width CV 13.5 % (11.6-14.6); RBC Distribution Width SD 44.4 fl (35.1-43.9); Red Blood Count 4.34 M/mm3 (4.6-6.2); White Blood Count 8.1 K/mm3 (4.4-11.0)
[2019-01-08 08:55] LABS: Prothrombin Time (Protime)PT. 13.2 SECONDS (11.7-14.9)
[2019-01-08 08:56] LABS: Partial Thromboplast Time 29.1 Seconds (24.1-36.2)
--- NOTE | 2019-01-08 08:59 | ED.DCSUM_ITS ---
- ER Visit Summary Date of Service: 01/08/19 Chief Complaint: Fall History of Present Illness: The patient is a 83 M who fell overnight last night. He reports drinking 3-4 beers. He does typically drink daily. He does not remember all the details of the fall. He thinks he lost his balance. He does not think he lost consciousness. He does not take blood thinners. He reports a laceration to the back of his head as well as some neck pain. He is refusing a c-collar. Denies any other injuries. He does feel short of breath. He has a history of COPD and smoking. Denies chest pain, cough, fever, or sputum. Denies any history of blood clots. Denies weakness, numbness, or neurologic symptoms. Denies nausea or vomiting. He is unsure of his tetanus status. Physical Examination: Afebrile and vital signs unremarkable. Patient has a 5 cm linear full-thickness laceration to his occipital region. Otherwise his head is atraumatic. Neck is nontender. Chest is nontender. Heart regular. Lungs had expiratory wheeze bilaterally. Abdomen soft and nontender. Back and ext remities nontender. Good range of motion. Good strength and sensation. Test Results: CT brain and C-spine pending. Chest x-ray, EKG, labs performed. Emergency Department Course and Treatment: Patient treated with a DuoNeb for his wheezing and shortness of breath. Will check chest x-ray and basic labs. Head and neck imaging performed. Will check coags preemptively. Will update his tetanus status. Will check CPK as we are unsure of his downtime. EKG showed sinus rhythm at a rate of 81 with first-degree block and left anter ior fascicular block. CBC unremarkable. Sodium stable at 128. Is a chronic issue for him likely secondary to his beer drinking. Coags normal. Troponin and CPK normal. Chest x-ray was normal. CT brain showed chronic changes. CT C-spine showed nothing acute. Patient's laceration was cleaned with saline and Hibiclens. Skin and underlying muscle layer closed with simple interrupted sutures. 8 sutures were placed. Follow-up in 10 to 14 days for removal. Return right away for signs of infection or any complications. Patient will be discharged home. Treatment Plan: As above Disposition: Discharge Impression: 1. Scalp laceration 5 cm's occipital 2. Chronic hyponatremia This note was generated with [employer] dictation software. It may contain incorrect words, spelling, and punctuation that were not noted in review of the chart prior to signing ED Disposition - Plan for ED Patient: Referrals: Brandon Hennessy MD [Primary Care Provider] -
[2019-01-08 09:04] LABS: Anion Gap 9 (5-15); BUN 7 mg/dL (7-18); BUN/Creat Ratio 11.2 RATIO (10-20); CPK Total, Creatine Kinase 232 U/L (39-308); Chloride 93 mmol/L (98-107); Creatinine, Serum 0.63 mg/dL (0.70-1.30); EST Glomerular Filtration Rate 130 mL/min (>60); Est Glom Filt Rate - Afr Amer 157 mL/min (>60); Estimated Creatinine Clearance 59.61 ml/min; Glucose 94 mg/dL (74-106); Potassium 4.1 mmol/L (3.5-5.1); Sodium Level 128 mmol/L (136-145)
[2019-01-08 09:40] VITALS: PULSE 71; RESP 28
[2019-01-08] MEDS: Ipratropium/Albuterol Sulfate 3 ML AMPUL.NEB INHALATION (09:40)
--- NOTE | 2019-01-08 10:04 | ED.DEP ---
ED Disposition - Plan for ED Patient: Instructions: LACERATION, All Referrals: Brandon Hennessy MD [Primary Care Provider] - Additional Instructions: Follow up in 10 to 14 days for suture removal. Return right away for signs of infection like redness, warmth, drainage, pain, swelling, or bleeding.
--- NOTE | 2019-01-08 10:18 | ED.RN ---
attempted to call daughter for ride. unable to reach daughter.
[2019-01-08 10:26] VITALS: BP 145/87; PULSE 79; RESP 28; O2SAT 94
--- NOTE | 2019-01-08 10:26 | ED.RN ---
attempted to reach daughter for ride home. unable to reach daughter.
[2019-01-08 10:36] VITALS: RESP 28
== END 2019-01-08 10:58 | disposition home or self-care (01) ==
LOC: ED 08:59
PROVIDERS: Emergency Provider Emergency Medicine; Family Provider Family Medicine; PCP Family Medicine
DX: S01.01XA Laceration without foreign body of scalp, initial encounter (principal); W19.XXXA Unspecified fall, initial encounter; Y93.9 Activity, unspecified; Y92.9 Unspecified place or not applicable; J44.9 Chronic obstructive pulmonary disease, unspecified; E87.1 Hypo-osmolality and hyponatremia; I44.4 Left anterior fascicular block; R06.2 Wheezing; R06.02 Shortness of breath; F17.200 Nicotine dependence, unspecified, uncomplicated; Z72.89 Other problems related to lifestyle
CPT/HCPCS: 12002; 70450; 71045; 72125; 80048; 82550; 84484; 85025; 85610; 85730; 93005; 94640; 99285; A4216

== ENCOUNTER 2019-05-15 10:27 | Inpatient (IN) | payer MEDICARE, MEDICAID, SELFPAY ==
[2019-05-15] VITALS (11 sets, daily range): BP systolic 122–154; BP diastolic 77–108; PULSE 65–115; RESP 18–24; TEMP 36.2–37.3; O2SAT 95–98; BMI 22.4; BMI 22.1
--- NOTE | 2019-05-15 12:07 | EKG12_ITS ---
Test Reason : Blood Pressure : / mmHG Vent. Rate : 091 BPM Atrial Rate : 091 BPM P-R Int : 214 ms QRS Dur : 078 ms QT Int : 360 ms P-R-T Axes : 083 -50 039 degrees QTc Int : 442 ms Sinus rhythm with 1st degree A-V block Left anterior fascicular block Inferior infarct (cited on or before 10-APR-2018), age undetermined Abnormal ECG Confirmed by MARILYN CORMIER, ROSA ([id number]), editor school photograph MIMA HARLEY ([id number]) on 05/19/2019 10:49:22 AM Referred By: Valeria Manriquez Confirmed By:ROSA SANDERS MD
--- NOTE | 2019-05-15 12:08 | ED.DCSUM_ITS ---
History of Present Illness Chief Complaint: Weakness Informant: Patient Onset: Days - several Context: Gradual Onset Timing: Continuous Associated Symptoms: prod cough, sob Narrative: Patient states he has been in a wheelchair for 6 or 7 years and trouble walking since. He states trouble walking is not new but today he was so weak that he could not sit up in bed which is the main reason he came. He does have a history of alcohol use, sometimes 6 or 8 beers at a time, but not daily, no withdrawal symptoms when he stops, and he has had no alcohol this morning. He has a tremor that is chronic. He has a productive cough and some mild shortness of breath off-and-on recently, that has been for 4 or 5 days. Although it is in his medical history here at the hospital, he denies having COPD and is on no home oxygen. He states he is feeling so weak he wants to be considered for placement at a jail. He denies any GI symptoms except for one bout of watery nonbloody diarrhea yesterday. - Past Medical History (1) Afib Status: Chronic (2) Chronic alcohol abuse Status: Chronic (3) History of COPD Status: Chronic (4) History of hypothyroidism Status: Chronic (5) Tobacco dependence syndrome Status: Chronic Past Medical History - Allergies and Home Meds Allergies/Adverse Reactions: Allergies No Known Allergies Allergy (Verified 05/15/19 10:33) Primary Care Physician: Brandon Hennessy MD [Primary Care Provider] - Surgical History: cataract Lives: Alone Smoking Status: Current every day smoker Alcohol: Occasional - But heavy when he drinks Drugs: None - Family History Paternal Family History: Reports: No pertinent history Maternal Family History: Reports: No pertinent history Review of Systems General: Reports: Malaise. Denies: Chills, Fever, Sweats Eyes: Denies: Visual changes - bilaterally, Diplopia ENT: Denies: Rhinorrhea, Sore throat Cardiovascular: Denies: Chest pain, Palpitations Respiratory: Reports: Dyspnea, Cough, Sputum - White, nonbloody, Dyspnea on exertion Gastrointestinal: Reports: Diarrhea. Denies: Abdominal pain, Nausea, Vomiting, Melena, Hematochezia Genitourinary: Denies: Dysuria, Hematuria, Frequency Musculoskeletal: Denies: Back pain, Swelling, Extremity Pain Skin: Denies: Rash, Wounds Neurological: Reports: Weakness - Bilateral lower extremities chronic. Denies: Headache, Numbness Physical Exam Vital Signs/Narrative: Vital Signs Temp Pulse Resp BP Pulse Ox 05/15/19 10:28 97.2 F L 104 H 24 H 135/80 H 98 Inital Vital Signs reviewed: Yes General: Well nourished, Well developed, No Acute Distress Head: Normocephalic, Atraumatic Eyes: Perrl, EOMI ENT: Moist mucous membranes, No rhinorrhea, - - POP clear. Negative for: Sinus tenderness Neck: Supple, Nontender, No lymphadenopathy, No JVD Cardiovascular: Regular rate, Regular rhythm, No murmurs Respiratory: Chest nontender, Rales - Right base, Wheezing - And expiratory bilaterally, no distress, Diminished - Throughout, symmetrically Abdomen: Soft, Nontender, Nondistended, Normal bowel sounds Back: Nontender, Normal Inspection. Negative for: CVA tenderness Extremities: Nontender, No edema Skin: Normal color, No rash, No Trauma Neurological: Alert, Oriented x3, Cranial nerves II-XII grossly intact, Normal Strength - Able to move all 4 extremities while lying. Able to sit up on his own without assistance, grabbing handles of the cot., Normal Sensation Psychological: Normal affect, Normal Mood Diagnostic/Tx/Re-eval Impressions Chest X-Ray 05/15/19 12:10 IMPRESSION: No acute cardiopulmonary disease. COPD is noted. Electronically Signed: Kurtis Herrera DO at 12:28 EDT Tel , Service support , 05/15/19 12:10 Chest 1 View (Portable) [RAD] Stat Laboratory Results 05/15/19 05/15/19 05/15/19 11:40 11:40 11:40 WBC 10.0 RBC 4.37 L Hgb 14.4 Hct 40.9 MCV 93.6 MCH 33.0 H MCHC 35.2 RDW Std Deviation 45.1 H RDW Coeff of Tera 13.2 Plt Count 158 MPV 9.7 Immature Gran % (Auto) 0.600 Neut % (Auto) 79.1 H Lymph % (Auto) 11.6 L [place] % (Auto) 8.3 Eos % (Auto) 0.0 Baso % (Auto) 0.4 Absolute Neuts (auto) 7.9 H Absolute Lymphs (auto) 1.16 Nucleated RBC % 0 PT 13.5 INR 1.1 APTT 27.3 Sodium 128 L Potassium 3.8 Chloride 91 L Carbon Dioxide 24.0 Anion Gap 13 BUN 10 Creatinine 0.74 Estim Creat Clear Calc 56.70 Est GFR (MDRD) Af Amer 130 Est GFR (MDRD) Non-Af 107 BUN/Creatinine Ratio 13.5 Glucose 63 L Lactic Acid Calcium 8.6 Total Bilirubin 1.20 H AST 31 ALT 29 Alkaline Phosphatase 75 Total Protein 7.4 Albumin 3.5 Globulin 3.9 Albumin/Globulin Ratio 0.9 Urine Color Urine Clarity Urine pH Ur Specific [place] Urine Protein Urine Glucose (UA) Urine Ketones Urine Occult Blood Urine Nitrite Urine Bilirubin Urine Urobilinogen Ur Leukocyte Esterase Urine RBC Urine WBC Ur Squamous Epith Cells Amorphous Sediment Urine Bacteria Urine Mucus 05/15/19 05/15/19 11:40 13:06 WBC RBC Hgb Hct MCV MCH MCHC RDW Std Deviation RDW Coeff of Tera Plt Count MPV Immature Gran % (Auto) Neut % (Auto) Lymph % (Auto) [place] % (Auto) Eos % (Auto) Baso % (Auto) Absolute Neuts (auto) Absolute Lymphs (auto) Nucleated RBC % PT INR APTT Sodium Potassium Chloride Carbon Dioxide Anion Gap BUN Creatinine Estim Creat Clear Calc Est GFR (MDRD) Af Amer Est GFR (MDRD) Non-Af BUN/Creatinine Ratio Glucose Lactic Acid 1.5 Calcium Total Bilirubin AST ALT Alkaline Phosphatase Total Protein Albumin Globulin Albumin/Globulin Ratio Urine Color Yellow Urine Clarity Clear Urine pH 6.0 Ur Specific [place] 1.010 Urine Protein Negative Urine Glucose (UA) Normal Urine Ketones 150 H Urine Occult Blood 10 H Urine Nitrite Positive H Urine Bilirubin Negative Urine Urobilinogen 1 H Ur Leukocyte Esterase 100 H Urine RBC 0 SEEN Urine WBC 0-5 SEEN Ur Squamous Epith Cells 0 SEEN Amorphous Sediment 1+ Urine Bacteria 0 SEEN Urine Mucus 0 SEEN - Rhythm Strip Rhythm Strip: Sinus Rhythm Rate: 90 Ectopy: None - EKG Initial EKG Interpretation: Sinus Rhythm, No Acute Injury Pattern, AV Block - First-degree, - - left axis; inferior Q waves Prior: Unchanged - Medical Decision Making Clinically the patient sounds like he has pneumonia in the right base. It is not showing up radiographically, however with his mild hyponatremia he may be a little dehydrated. We gently hydrated him here in addition to breathing treatments which did help his breathing so we took him off of the supplemental oxygen which he does not have at home, and he desatted down to 83% became more dyspneic. Oxygen was replaced, he was treated with empiric Levaquin, lactate is within normal limits, and plan is for admission. Patient is clinically stable and I do not think needs ICU at this time. ED Disposition - Plan for ED Patient: Disposition: Acute Care Hospital [facility] Diagnosis: Sepsis due to pneumonia, Community acquired pneumonia, Hypoxemia, COPD exacerbation Referrals: Brandon Hennessy MD [Primary Care Provider] -
--- NOTE | 2019-05-15 12:10 | RAD_ITS ---
STUDY: X-RAY CHEST REASON FOR EXAM: Male, 84 years old. Cough and shortness of breath TECHNIQUE: Single AP portable view of the chest. COMPARISON: 01/08/2019 FINDINGS: There is hyperinflation of the lungs consistent with chronic obstructive lung disease (COPD). Lungs are clear. There is no demonstrated pleural abnormality. There is borderline cardiomegaly. Normal mediastinum and gen. Normal visualized pulmonary arteries. Normal visualized aortic arch and descending thoracic aorta. There are diffuse degenerative changes of the visualized thoracic spine. There is degenerative osteoarthritis of the bilateral shoulders. There is no demonstrated abnormality of the visualized soft tissue structures of the upper abdomen. RAD/Chest 1 View (Portable) IMPRESSION: No acute cardiopulmonary disease. COPD is noted. Electronically Signed: Kurtis Herrera DO at 12:28 EDT Tel , Service support ,
[2019-05-15] MEDS: Albuterol 2.5 MG/3 ML VIAL.NEB. INHALATION (12:40)
[2019-05-15 12:45] LABS: Absolute Lymphocyte Count 1.16 X10^3/uL (0.83-4.51); Absolute Neutrophil Count 7.9 X10^3/uL (2.0-7.7); Basophil# 0.04 X10^3/uL; Basophil% 0.4 % (0-1); Hematocrit 40.9 % (40-54); Hemoglobin 14.4 g/dL (13.0-16.5); Lymphocyte # 1.16 X10^3/ul (4.0); Lymphocyte % 11.6 % (19-41); Mean Corp Hgb Conc 35.2 g/dL (32-36); Mean Corpuscular Volume 93.6 fL (80-94); Mean Platelet Vol. 9.7 fl (6.2-12.0); Monocyte# 0.83 X10^3/uL; Monocyte% 8.3 % (0-10); NRBC Flagged by Analyzer 0 % (0-5); Neutrophil # 7.87 X10^3/uL (2.7-7.7); Neutrophil % 79.1 % (47-70); Platelet Count 158 K/mm3 (150-450); RBC Distribution Width CV 13.2 % (11.6-14.6); RBC Distribution Width SD 45.1 fl (35.1-43.9); Red Blood Count 4.37 M/mm3 (4.6-6.2)
[2019-05-15 12:53] LABS: International Normalized Ratio 1.1; Prothrombin Time (Protime)PT. 13.5 SECONDS (11.7-14.9)
[2019-05-15 12:54] LABS: Partial Thromboplast Time 27.3 Seconds (24.1-36.2)
[2019-05-15 12:56] LABS: ALB/GLOB Ratio 0.9 RATIO (0.9-2.4); AST(SGOT) 31 U/L (15-37); Alanine Aminotransfer ALT/SGPT 29 U/L (16-61); Albumin, Serum 3.5 g/dL (3.2-5.0); Alkaline Phosphatase 75 U/L (45-117); Anion Gap 13 (5-15); BUN 10 mg/dL (7-18); BUN/Creat Ratio 13.5 RATIO (10-20); Calcium,Total 8.6 mg/dL (8.5-10.1); Chloride 91 mmol/L (98-107); Creatinine, Serum 0.74 mg/dL (0.70-1.30); EST Glomerular Filtration Rate 107 mL/min (>60); Est Glom Filt Rate - Afr Amer 130 mL/min (>60); Globulin 3.9 g/dL (2.2-4.2); Glucose 63 mg/dL (74-106); Potassium 3.8 mmol/L (3.5-5.1); Protein, Total 7.4 g/dL (6.4-8.2); Sodium Level 128 mmol/L (136-145)
[2019-05-15 12:58] LABS: Lactic Acid 1.5 mmol/L (0.4-2.0)
[2019-05-15] MEDS: 0.9% Normal Saline 1,000 ML 150 ML IV (13:00)
[2019-05-15 13:12] LABS: Bacteria 0 SEEN /hpf (None Seen); Mucous, Urine 0 SEEN /hpf (<or=2+); Red Blood Cells-Urine 0 SEEN /hpf (0-5); Squamous Epithelial Cells - UA 0 SEEN /hpf (0-5)
[2019-05-15 13:21] LABS: Color, Urine Yellow (Yellow); Glucose, Dipstick Normal (Normal); Leukocyte Esterase-Dipstick 100 /ul (Negative); Nitrite-Dipstick Positive (Negative); Occult Blood-Urine 10 /ul (Negative); Protein-Dipstick Negative (Negative); Urine Bilirubin Dipstick Negative (Negative); Urine Clarity Clear (Clear); Urine Urobilinogen 1 mg/dl (Normal)
[2019-05-15 13:26] LABS: Ketone-Dipstick 150 mg/dl (Negative)
[2019-05-15 13:51] LABS: Amorphous Sediment 1+; White Blood Cells 0-5 SEEN /hpf (0-5)
--- NOTE | 2019-05-15 15:04 | PCM.HP.STD ---
History of Present Illness Date of Admission: 05/15/19 Chief Complaint: shortness of breath, weakness The patient is a 84 year old M with and extensive PMH as listed. He was admitted via the ED with a complaint of progressive weakness, and cough and shortness of breath. He lives alone and says his weakness has been getting progressively worse, to the point where he had to get the EMS to bring him into the hospital. He also states he had a cough which is productive of clear sputum but has been getting progressively short of breath. He denied any fever but admitted to chills and denied any diarrhea or nausea vomiting.. Patient is a known hypertensive but has not been taking this medication because he says his blood pressure has been normal. Review of systems is otherwise negative. Patient has a history of chronic alcohol use and states he drinks about 6-8 beers at ago and his last drink was Sunday. He also has chronic tremors of his upper extremities. In the ED, at review vitals were significant for pulse rate of 99 and respiratory rate of 20. He was saturating at 98% on 2 L of oxygen and when he was tried to be weaned off of oxygen his saturation dropped to the 80s. Chemistry showed sodium of 128 and lactic acid of 1.5 with total bilirubin of 1.2. CBC showed white cell count of 10. Chest x-ray showed no acute cardia pulmonary process and only noted chronic COPD. He has been admitted to be managed for acute hypoxic respiratory insufficiency due to COPD exacerbation. [] Past Medical History Past Medical History (Chronic Problems): Chronic Problems Afib (Chronic) Chronic alcohol abuse (Chronic) History of atrial fibrillation (Chronic) Tobacco dependence syndrome (Chronic) History of hypothyroidism (Chronic) History of COPD (Chronic) Allergies No Known Allergies Allergy (Verified 05/15/19 10:33) Home Medications: Ambulatory Orders Medication Instructions Recorded NK 01/08/19 Surgical History: cataract Psychiatric History: No pertinent psych hx Lives: Alone Smoking Status: Current every day smoker Tobacco Use: Cigarettes Alcohol: Occasional - But heavy when he drinks Drugs: None - *Family History Paternal History Items: No pertinent history Maternal History Items: No pertinent history Review of Systems Constitutional: Reports: Chills, Malaise, Weakness, Fatigue. Denies: Anorexia, Fever Eyes: Denies: Blurred vision HEENT: Denies: Head Aches, Sinus Congestion, Sinus Drainage Cardiovascular: Denies: Chest Pain, Light Headedness, Orthopnea, Palpitations, Paroxysmal Noc. Dyspnea Respiratory: Reports: Cough, Shortness of Breath, Shortness of breath at rest, Shortness of breath upon exertion, Sputum production, Wheezing. Denies: Pleuritic Pain Gastrointestinal: Denies: Abdominal Pain, Nausea, Vomiting Genitourinary: Denies: Dysuria Musculoskeletal: Denies: Joint Pain, Joint Tenderness Skin: Denies: Rash, Wounds Neurological: Reports: Tremor. Denies: Focal weakness, Numbness, Tingling Psychiatric: Denies: Anxiety, Depression, Homicidal Ideations, Suicidal Ideations Hematologic/ Lymphatic: Denies: Easy Bruising, Easy Bleeding VTE Information - Inpt Only VTE Present on Admission: No VTE Pharm Prophylaxis ordered?: Yes Patient Problems: Active and Suspected Problems Sepsis due to pneumonia (Acute) Community acquired pneumonia (Acute) Hypoxemia (Acute) COPD exacerbation (Acute) - Physical Exam Vitals/I&O's: Vital Signs Temp Pulse Resp BP Pulse Ox 99.1 F 99 20 H 154/108 H 98 05/15/19 14:32 05/15/19 14:32 05/15/19 14:32 05/15/19 14:32 05/15/19 14:32 Oxygen Flow Rate (L/min) 2 Oxygen Delivery Method Room Air Weight: 160 lb 11.472 oz Body Mass Index (BMI) 22.4 General: Alert, Oriented x3, Cooperative, No apparent distress, - - looks very unkempt HEENT: Atraumatic, PERRLA, EOMI, Normocephalic Oral: Dry Mucosa Neck: Supple, No JVD, Negative Carotid Bruits Lungs: - - decreased breath sounds bibasally, no mild crackles bibasally. on 2L of oxygen. tachypneic Cardiovascular: Regular rate, Regular Rhythm, Normal S1, Normal S2, No murmurs Abdomen: Bowel Sounds Present, Soft, Non Tender, Non-Distended, No Hepato-splenomegaly Extremities: No clubbing, No cyanosis, No edema, Capillary Refill Less than 3 Seconds Skin: No rashes, No breakdown Musculoskeletal: No Tenderness to Palpation of Joints or Extremities Lymphatic: No Cervical, Supraclavicular, or Inguinal Adenopathy Neurological: Cranial nerves II-XII grossly intact, Neuro grossly intact, Motor Exam 5/5 strength throughout, - - resting tremors of UEs Psych/Mental Status: Normal Affect, Appropriate, Alert and oriented to time, place, person, mood and affect Laboratory Results 05/15/19 11:40: WBC 10.0, RBC 4.37 L, Hgb 14.4, Hct 40.9, MCV 93.6, MCH 33.0 H, MCHC 35.2, RDW Std Deviation 45.1 H, RDW Coeff of Tera 13.2, Plt Count 158, MPV 9.7, Immature Gran % (Auto) 0.600, Neut % (Auto) 79.1 H, Lymph % (Auto) 11.6 L, [place] % (Auto) 8.3, Eos % (Auto) 0.0, Baso % (Auto) 0.4, Absolute Neuts (auto) 7.9 H, Absolute Lymphs (auto) 1.16, Nucleated RBC % 0 05/15/19 11:40: PT 13.5, INR 1.1, APTT 27.3 05/15/19 11:40: Sodium 128 L, Potassium 3.8, Chloride 91 L, Carbon Dioxide 24.0, Anion Gap 13, BUN 10, Creatinine 0.74, Estim Creat Clear Calc 56.70, Est GFR (MDRD) Af Amer 130, Est GFR (MDRD) Non-Af 107, BUN/Creatinine Ratio 13.5, Glucose 63 L, Calcium 8.6, Total Bilirubin 1.20 H, AST 31, ALT 29, Alkaline Phosphatase 75, Total Protein 7.4, Albumin 3.5, Globulin 3.9, Albumin/Globulin Ratio 0.9 05/15/19 11:40: Lactic Acid 1.5 05/15/19 13:06: Urine Color Yellow, Urine Clarity Clear, Urine pH 6.0, Ur Specific [place] 1.010, Urine Protein Negative, Urine Glucose (UA) Normal, Urine Ketones 150 H, Urine Occult Blood 10 H, Urine Nitrite Positive H, Urine Bilirubin Negative, Urine Urobilinogen 1 H, Ur Leukocyte Esterase 100 H, Urine RBC 0 SEEN, Urine WBC 0-5 SEEN, Ur Squamous Epith Cells 0 SEEN, Amorphous Sediment 1+, Urine Bacteria 0 SEEN, Urine Mucus 0 SEEN Diagnostic Data Chest X-Ray 05/15/19 12:10 IMPRESSION: No acute cardiopulmonary disease. COPD is noted. Electronically Signed: Kurtis Herrrea DO at 12:28 EDT Tel , Service support , Current Medications Sodium Chloride () 1,000 mls @ 150 mls/hr IV .[id number] [facility] Last Admin: 05/15/19 13:00 Dose: 150 mls/hr Documented by: Levofloxacin (Levaquin Iv) 750 mg in 150 mls @ 100 mls/hr IV X1 ONE Stop: 05/15/19 16:15 Assessment/Plan All Active Problems Sepsis due to pneumonia (Acute) Community acquired pneumonia (Acute) Hypoxemia (Acute) Pneumococcal pneumonia (Acute) Severe sepsis (Acute) Shortness of breath (Acute) Respiratory failure (Acute) COPD exacerbation (Acute) Fall at home (Resolved) Hyponatremia (Resolved) 84-year-old male admitted with complaint of progressively worsening weakness and shortness of breath. 1. Acute hypoxic respiratory insufficiency due to COPD exacerbation Patient saturation dropped to 83% on room air and he is tachypneic. Saturating well on 2 L of oxygen. Admit to PCU with telemetry Check respiratory panel, urine for strep and Legionella. Patient does meet SIRS criteria for sepsis. However I think this is due to his suspected COPD exacerbation. He does not have a history of COPD but patient has a chronic smoking history and chest x-ray shows changes indicating of COPD. I think that tachypnea and tachycardia can be explained by these. He does not have any elevated white cell count. I am also not convinced that patient has pneumonia either clinically and this is does not show an x-ray to. Continue IV levofloxacin which was started in ED. Sputum culture Breathing treatments and IV Solu Medrol. 2. COPD exacerbation: As under 1 3. Debility due to COPD and advanced age: Patient is very weak and unkempt. PT OT consult. Will need placement. .4 Hypertension: Has not been compliant with his medication as he states he thinks his blood pressure has been normal. Monitor blood pressure and start meds as appropriate. 5. Hyponatremia: Sodium is 128. This is chronic. Will monitor. 6. Chronic upper extremity tremors: These are resting tremors. May be due to effect of chronic alcohol use. Will monitor. DVT Prophylaxis: Lovenox Code Visit Inpatient E&M: 79724 Init Hosp L3
[2019-05-15] MEDS: MethylPREDNISolone 125 MG/2 ML Vial IV (15:34)
[2019-05-15] MEDS: levoFLOXacin IV 750 MG/150 ML BAG 100 MG IV (15:35)
[2019-05-15] MEDS: Ipratropium/Albuterol Sulfate 3 ML AMPUL.NEB INHALATION (20:30)
[2019-05-15] MEDS: Menthol/Lanolin/Calamine/Znox 113 GM Tube 1 APPLIC TOPICAL (21:40)
[2019-05-15] MEDS: guaiFENesin 1,200 MG Tablet 1200 MG PO (21:41)
[2019-05-16] VITALS (13 sets, daily range): BP systolic 127–147; BP diastolic 86–94; PULSE 79–108; RESP 20–22; TEMP 36.6–36.8; O2SAT 94–98
[2019-05-16] MEDS: 0.9% Normal Saline 1,000 ML 150 ML IV ×2 (00:15→06:57)
[2019-05-16 05:45] LABS: Absolute Lymphocyte Count 0.54 X10^3/uL (0.83-4.51); Absolute Neutrophil Count 7.2 X10^3/uL (2.0-7.7); Basophil# 0.01 X10^3/uL; Basophil% 0.1 % (0-1); Hematocrit 36.3 % (40-54); Hemoglobin 12.6 g/dL (13.0-16.5); Lymphocyte # 0.54 X10^3/ul (4.0); Lymphocyte % 6.7 % (19-41); Mean Corp Hgb Conc 34.7 g/dL (32-36); Mean Corpuscular Hgb 32.6 pg (27.0-32.0); Mean Platelet Vol. 9.7 fl (6.2-12.0); Monocyte# 0.28 X10^3/uL; Monocyte% 3.4 % (0-10); NRBC Flagged by Analyzer 0 % (0-5); Neutrophil # 7.21 X10^3/uL (2.7-7.7); Neutrophil % 88.8 % (47-70); POSITIVE DIFFERENTIAL YES; Platelet Count 150 K/mm3 (150-450); RBC Distribution Width CV 13.2 % (11.6-14.6); RBC Distribution Width SD 45.7 fl (35.1-43.9); Red Blood Count 3.86 M/mm3 (4.6-6.2); White Blood Count 8.1 K/mm3 (4.4-11.0)
[2019-05-16 05:48] LABS: Differential Indicated SCAN CRITERIA MET
[2019-05-16 06:01] LABS: Anion Gap 8 (5-15); BUN 17 mg/dL (7-18); BUN/Creat Ratio 23.5 RATIO (10-20); Calcium,Total 7.9 mg/dL (8.5-10.1); Chloride 99 mmol/L (98-107); Creatinine, Serum 0.72 mg/dL (0.70-1.30); EST Glomerular Filtration Rate 110 mL/min (>60); Est Glom Filt Rate - Afr Amer 133 mL/min (>60); Estimated Creatinine Clearance 55.84 ml/min; Glucose 164 mg/dL (74-106); Potassium 3.5 mmol/L (3.5-5.1); Sodium Level 130 mmol/L (136-145)
[2019-05-16] MEDS: Ipratropium/Albuterol Sulfate 3 ML AMPUL.NEB INHALATION ×4 (06:52→19:15)
--- NOTE | 2019-05-16 09:38 | CASEMGMT ---
SONAL met with patient, introduced self and role at [facility]. He is very hard of hearing. He said he lives along most of the time, but his oldest son has been staying with him a little more lately as he was laid off. SONAL asked if SONAL could talk with his daughter Cassandra. He said SW can talk with her and that she will be coming to [facility] soon. SONAL said SW will come back when she comes in to [facility]. Zahra RODRIGUEZ MSW
[2019-05-16] MEDS: guaiFENesin 1,200 MG Tablet 1200 MG PO ×2 (10:04→21:48)
[2019-05-16] MEDS: Enoxaparin 40 MG/0.4 ML Syringe SC (10:04)
[2019-05-16] MEDS: Menthol/Lanolin/Calamine/Znox 113 GM Tube 1 APPLIC TOPICAL ×2 (10:04→21:48)
--- NOTE | 2019-05-16 13:12 | PCM.PROGNOTE ---
<Chica Caldwell - Last Filed: 05/16/19 14:17> Patient Problems: Active and Suspected Problems Sepsis due to pneumonia (Acute) Community acquired pneumonia (Acute) Hypoxemia (Acute) COPD exacerbation (Acute) Subjective: Patient seen and examined. Reports continued shortness of breath. Oxygen currently stable on room air. Patient states he lives with his son and feels like he is doing well at home. Significant upper extremity tremors. Patient does state that he drinks 6-8 beers every other day. - Physical Exam Vitals/I&O's: Vital Signs Temp Pulse Resp BP Pulse Ox 98.2 F 103 H 20 H 127/91 H 97 05/16/19 10:03 05/16/19 10:03 05/16/19 10:03 05/16/19 10:03 05/16/19 10:03 Oxygen Flow Rate (L/min) 2 Oxygen Delivery Method Room Air Weight: 158 lb 4.67 oz Body Mass Index (BMI) 22.1 Intake and Output for Last 24 Hours 05/14/19 05/15/19 05/16/19 23:59 23:59 23:59 Intake Total 1350.0 / 1350.0 2667.5 / 2667.5 Output Total 1225 / 1225 Balance 1350.0 / 1350.0 1442.5 / 1442.5 General: Alert, Oriented x3, Cooperative, - - Unkempt. HEENT: Atraumatic, PERRLA, EOMI, Normocephalic Oral: Dry Mucosa Neck: Supple, No JVD, Negative Carotid Bruits Lungs: Diminished, Wheezes Cardiovascular: - - Atrial for ablation, rate controlled Abdomen: Bowel Sounds Present, Soft, Non Tender, Non-Distended Extremities: No clubbing, No cyanosis, No edema, Capillary Refill Less than 3 Seconds Skin: No rashes, No breakdown Musculoskeletal: No Tenderness to Palpation of Joints or Extremities Neurological: Cranial nerves II-XII grossly intact, Neuro grossly intact, - - Bilateral upper extremity tremors Psych/Mental Status: Normal Affect, Appropriate Microbiology Past 72 Hours 05/15/19 20:25 Mucosa - Nose Respiratory Panel (PCR) - Final 05/15/19 12:55 Blood Culture (Wb) - Left Forearm Blood Culture - Preliminary 05/15/19 13:06 Urine, Random Streptococcus pneumoniae Antigen (M - Final 05/15/19 13:06 Urine, Random Legionella Antigen - Final Laboratory Results 05/15/19 13:06: Urine Color Yellow, Urine Clarity Clear, Urine pH 6.0, Ur Specific [place] 1.010, Urine Protein Negative, Urine Glucose (UA) Normal, Urine Ketones 150 H, Urine Occult Blood 10 H, Urine Nitrite Positive H, Urine Bilirubin Negative, Urine Urobilinogen 1 H, Ur Leukocyte Esterase 100 H, Urine RBC 0 SEEN, Urine WBC 0-5 SEEN, Ur Squamous Epith Cells 0 SEEN, Amorphous Sediment 1+, Urine Bacteria 0 SEEN, Urine Mucus 0 SEEN 05/16/19 05:00: Sodium 130 L, Potassium 3.5, Chloride 99, Carbon Dioxide 23.0, Anion Gap 8, BUN 17, Creatinine 0.72, Estim Creat Clear Calc 55.84, Est GFR (MDRD) Af Amer 133, Est GFR (MDRD) Non-Af 110, BUN/Creatinine Ratio 23.5 H, Glucose 164 H, Calcium 7.9 L 05/16/19 05:00: WBC 8.1, RBC 3.86 L, Hgb 12.6 L, Hct 36.3 L, MCV 94.0, MCH 32.6 H, MCHC 34.7, RDW Std Deviation 45.7 H, RDW Coeff of Tera 13.2, Plt Count 150, MPV 9.7, Immature Gran % (Auto) 1.000 H, Neut % (Auto) 88.8 H, Lymph % (Auto) 6.7 L, [place] % (Auto) 3.4, Eos % (Auto) 0.0, Baso % (Auto) 0.1, Absolute Neuts (auto) 7.2, Absolute Lymphs (auto) 0.54 L, Nucleated RBC % 0 Current Medications Albuterol/Ipratropium (Duoneb) 3 ml INHALATION Q4HWA.RT RYANN Last Admin: 05/16/19 10:45 Dose: 3 ml Documented by: Calamine/Phenol (Calmoseptine Ointment) 1 applic TOPICAL BID RYANN; Protocol Last Admin: 05/16/19 10:04 Dose: 1 applicatio Documented by: Dextrose (D50w Syringe) 0 gm IV X1 PRN; Protocol PRN Reason: Hypoglycemia Enoxaparin Sodium (Lovenox) 40 mg SC DAILY@1000 RYANN Last Admin: 05/16/19 10:04 Dose: 40 mg Documented by: Glucagon () 1 mg IM .X1 PRN PRN Reason: Hypoglycemia Guaifenesin (Mucinex) 1,200 mg PO BID [facility] Last Admin: 05/16/19 10:04 Dose: 1,200 mg Documented by: Methylprednisolone (Solu-Medrol) 40 mg IV Q8 [facility] Last Admin: 05/16/19 06:27 Dose: 40 mg Documented by: Ondansetron HCl (Zofran) 4 mg IV Q8H PRN PRN PRN Reason: NAUSEA/VOMITING Medical Necessity - Tobacco Use Smoking Status: Current every day smoker Tobacco Use: Cigarettes Assessment/Plan All Active Problems Sepsis due to pneumonia (Acute) Community acquired pneumonia (Acute) Hypoxemia (Acute) Pneumococcal pneumonia (Acute) Severe sepsis (Acute) Shortness of breath (Acute) Respiratory failure (Acute) COPD exacerbation (Acute) Fall at home (Resolved) Hyponatremia (Resolved) 1. Acute hypoxic respiratory insufficiency secondary to exacerbation of COPD-respiratory panel negative. Chest x-ray without acute process. Albuterol and DuoNeb aerosols. IV Solu-Medrol. Continue supplement oxygen to maintain O2 at or above 90%. 2. Bacteremia with Gram-positive cocci in clusters-1 out of 2 blood cultures positive. Second blood culture pending. Possible staph contaminant? Patient afebrile. No leukocytosis. Initiate IV vancomycin empirically pending final cultures. 3. Debility, failure to thrive-PT/OT. Anticipate SNF at discharge. 4. Hypertension-stable, not on medication regimen. 5. Hyponatremia, chronic-IV fluids, trend BMP. 6. 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 7. Chronic atrial fibrillation-rate controlled. Not on oral anticoagulation or rate control regimen. 8. Tobacco dependence-encourage cessation. 9. Chronic alcohol abuse-advised cessation. [facility] protocol. DVT prophylaxis-Lovenox subcu This patient was seen by TAISHA Amato under the supervision of Dr. Fuentes. <Christiano Fuentes - Last Filed: 05/16/19 14:29> - Physical Exam Vitals/I&O's: Vital Signs Temp Pulse Resp BP Pulse Ox 98.2 F 103 H 20 H 127/91 H 97 05/16/19 10:03 05/16/19 10:03 05/16/19 10:03 05/16/19 10:03 05/16/19 10:03 Oxygen Flow Rate (L/min) 2 Oxygen Delivery Method Room Air Weight: 71.8 kg Body Mass Index (BMI) 22.1 Intake and Output for Last 24 Hours 05/14/19 05/15/19 05/16/19 23:59 23:59 23:59 Intake Total 1350.0 / 1350.0 2667.5 / 2667.5 Output Total 1225 / 1225 Balance 1350.0 / 1350.0 1442.5 / 1442.5 Microbiology Past 72 Hours 05/15/19 13:06 Urine, Clean Catch Urine Culture - Preliminary Gram Positive Cocci 05/15/19 20:25 Mucosa - Nose Respiratory Panel (PCR) - Final 05/15/19 12:55 Blood Culture (Wb) - Left Forearm Blood Culture - Preliminary 05/15/19 13:06 Urine, Random Streptococcus pneumoniae Antigen (M - Final 05/15/19 13:06 Urine, Random Legionella Antigen - Final Laboratory Results 05/16/19 05:00: Sodium 130 L, Potassium 3.5, Chloride 99, Carbon Dioxide 23.0, Anion Gap 8, BUN 17, Creatinine 0.72, Estim Creat Clear Calc 55.84, Est GFR (MDRD) Af Amer 133, Est GFR (MDRD) Non-Af 110, BUN/Creatinine Ratio 23.5 H, Glucose 164 H, Calcium 7.9 L 05/16/19 05:00: WBC 8.1, RBC 3.86 L, Hgb 12.6 L, Hct 36.3 L, MCV 94.0, MCH 32.6 H, MCHC 34.7, RDW Std Deviation 45.7 H, RDW Coeff of Tera 13.2, Plt Count 150, MPV 9.7, Immature Gran % (Auto) 1.000 H, Neut % (Auto) 88.8 H, Lymph % (Auto) 6.7 L, [place] % (Auto) 3.4, Eos % (Auto) 0.0, Baso % (Auto) 0.1, Absolute Neuts (auto) 7.2, Absolute Lymphs (auto) 0.54 L, Nucleated RBC % 0 Current Medications Albuterol/Ipratropium (Duoneb) 3 ml INHALATION Q4HWA.RT RYANN Last Admin: 05/16/19 10:45 Dose: 3 ml Documented by: Calamine/Phenol (Calmoseptine Ointment) 1 applic TOPICAL BID [facility]; Protocol Last Admin: 05/16/19 10:04 Dose: 1 applicatio Documented by: Dextrose (D50w Syringe) 0 gm IV X1 PRN; Protocol PRN Reason: Hypoglycemia Enoxaparin Sodium (Lovenox) 40 mg SC DAILY@1000 RYANN Last Admin: 05/16/19 10:04 Dose: 40 mg Documented by: Glucagon () 1 mg IM .X1 PRN PRN Reason: Hypoglycemia Guaifenesin (Mucinex) 1,200 mg PO BID [facility] Last Admin: 05/16/19 10:04 Dose: 1,200 mg Documented by: Vancomycin IV Pharmacy to Dose (1 ea/ Sodium Chloride) 500 mls @ 250 mls/hr IV X1 PRN; Protocol PRN Reason: Rx to Dose Methylprednisolone (Solu-Medrol) 40 mg IV Q8 [facility] Last Admin: 05/16/19 06:27 Dose: 40 mg Documented by: Ondansetron HCl (Zofran) 4 mg IV Q8H PRN PRN PRN Reason: NAUSEA/VOMITING Assessment/Plan This patient was seen in conjunction with TAISHA Amato . I have independently interviewed and examined the patient and reviewed pertinent historical, laboratory, and other data. Please refer to TAISHA Amato note for details of this patient's presentation, findings, and recommendations. I have reviewed TAISHA Amato note and concur with documented findings. In brief, patient is a an 84-year-old gentleman who presented with shortness of breath and assessment of COPD with acute exacerbation made admitted to regular nursing floor for further management Physical Examination: GENERAL: cooperative HEENT: Atraumatic; EYES; Anicteric, Normal Conjunctiva NECK; supple, normal thyroid, RESPIRATORY: Diminished to auscultation CARDIOVASCULAR: Irregular S1 S2, GI: soft, normoactive bowel sounds, : No Renal angle tenderness; EXTREMITIES: No edema, no clubbing, MUSCULOSKELETAL: no muscle waisting NEURO: Awake; significant tremors at rest. SKIN: No Rash PSYCH; Flat affect Assessment: 1. Acute hypoxic respiratory failure 2. COPD with acute exacerbation 3. Bacteremia with gram-positive cocci in clusters 4. Essential hypertension 5. Hyponatremia 6. Chronic A. fib 7. Chronic alcohol use 8. Physical debility Recommendations: 1. I have discussed the results of my overview and impressions with the patient 2. Options for management were reviewed Advance planning; did discuss with the patient and family regarding advanced directives as well as CODE STATUS. Did explain the various scenarios involved ( FULL CODE, DNR CCA, DNR CCA with no intubation, and DNR CC and what each meant) patient elected to be DNR CCA no intubation. Order was placed. Time spent on discussion 20 minutes. Code Visit Inpatient E&M: 55519 Subs Hosp L3 Procedures: 56039 Advncd Care Plan 30 Min
--- NOTE | 2019-05-16 14:39 | CASEMGMT ---
Addendum entered by Zahra Parikh 05/16/19 15:02: SW called and left a voice mail with Genevieve regarding referral. SONAL also faxed referral information. Zahra HALE Original Note: SONAL called patient's daughter and it went right to voice mail. SW left her a voice mail. SW then spoke with patient. He said his son lives with him now. He has 2 canes, a walker, 4 wheelchairs, and 2 shower chairs. He uses his walker to get to his wheelchair. He gets help with bathing, meals, cleaning and driving. He was able to toilet himself, but he is too weak right now. He said he has been to [facility] before and he said, I like that place. SONAL asked him if he feels he will need to go to a senior care for rehab. He said he might have to and he would go to [facility]. SONAL will work on referral for [facility]. Zahra HALE
[2019-05-16] MEDS: Vancomycin IV 1,000 MG/200 ML BAG 200 MG IV (14:56)
--- NOTE | 2019-05-16 15:54 | PCM.RX.CS ---
Consult Pharmacy has been consulted to manage selected antiobiotic: Vancomycin Type of Consult: New start Suspected Infection: Sepsis, Pneumonia Prior Doses of Antibiotics Received/Current Regimen: Received 1gm iv x 1 on 05.16.19 at 1456 Labs: Sodium 130 mmol/L (136-145) L 05/16/19 05:00 Potassium 3.5 mmol/L (3.5-5.1) 05/16/19 05:00 Chloride 99 mmol/L (98-107) 05/16/19 05:00 Carbon Dioxide 23.0 mmol/L (21.0-32.0) 05/16/19 05:00 Anion Gap 8 (5-15) 05/16/19 05:00 BUN 17 mg/dL (7-18) 05/16/19 05:00 Creatinine 0.72 mg/dL (0.70-1.30) 05/16/19 05:00 Est GFR (MDRD) Af Amer 133 mL/min (>60) 05/16/19 05:00 Est GFR (MDRD) Non-Af 110 mL/min (>60) 05/16/19 05:00 BUN/Creatinine Ratio 23.5 RATIO (10-20) H 05/16/19 05:00 Glucose 164 mg/dL (74-106) H 05/16/19 05:00 Microbiology: Microbiology 05/15/19 13:06 Urine, Clean Catch Urine Culture - Preliminary Gram Positive Cocci 05/15/19 20:25 Mucosa - Nose Respiratory Panel (PCR) - Final 05/15/19 12:55 Blood Culture (Wb) - Left Forearm Blood Culture - Preliminary 05/15/19 13:06 Urine, Random Streptococcus pneumoniae Antigen (M - Final 05/15/19 13:06 Urine, Random Legionella Antigen - Final Weight used for dosin.8 kg Estimated Creatinine Clearance: ~56ml/min Goal Trough: 15-20 mcg/mL Pharmacy Plan for Drug Dosing: Will begin 750mg iv q12h and get a trough level before 4th cumulative dose on 05.18.19. Pharmacy Service will continue to monitor and adjust dosing as required. Follow-Up Labs: Trough Vancomycin - 05.18.19 @0230
--- NOTE | 2019-05-16 16:13 | CASEMGMT ---
SW received a call from Genevieve at [facility] and they can accept patient. Plan: [facility] under skilled level of care Zahra RODRIGUEZ MSW
[2019-05-16] MEDS: MELATONIN 3 MG TABLET PO (21:48)
[2019-05-16] MEDS: 0.9% Saline Lock 10 ML Syringe IV (21:48)
[2019-05-17] VITALS (15 sets, daily range): BP systolic 120–153; BP diastolic 87–97; PULSE 78–116; RESP 18–24; TEMP 36.3–36.8; O2SAT 92–95
[2019-05-17] MEDS: Ipratropium/Albuterol Sulfate 3 ML AMPUL.NEB INHALATION ×4 (07:02→19:50)
[2019-05-17 07:57] LABS: Anion Gap 6 (5-15); BUN 19 mg/dL (7-18); BUN/Creat Ratio 27.7 RATIO (10-20); Calcium,Total 8.4 mg/dL (8.5-10.1); Chloride 99 mmol/L (98-107); Creatinine, Serum 0.69 mg/dL (0.70-1.30); EST Glomerular Filtration Rate 117 mL/min (>60); Est Glom Filt Rate - Afr Amer 141 mL/min (>60); Estimated Creatinine Clearance 55.84 ml/min; Glucose 147 mg/dL (74-106); Potassium 3.9 mmol/L (3.5-5.1); Sodium Level 132 mmol/L (136-145)
[2019-05-17] MEDS: guaiFENesin 1,200 MG Tablet 1200 MG PO ×2 (09:10→21:56)
[2019-05-17] MEDS: Enoxaparin 40 MG/0.4 ML Syringe SC (09:10)
[2019-05-17] MEDS: Menthol/Lanolin/Calamine/Znox 113 GM Tube 1 APPLIC TOPICAL ×2 (09:10→21:56)
--- NOTE | 2019-05-17 12:15 | PCM.PROGNOTE ---
<Chica Caldwell - Last Filed: 05/17/19 12:34> Patient Problems: Active and Suspected Problems Sepsis due to pneumonia (Acute) Community acquired pneumonia (Acute) Hypoxemia (Acute) COPD exacerbation (Acute) Subjective: Patient seen and examined. Reports mild improvement in breathing. Denies cough, fever, chills. Agreeable to SNF, plan for discharge to SNF on Sunday. - Physical Exam Vitals/I&O's: Vital Signs Temp Pulse Resp BP Pulse Ox 97.9 F 78 22 H 120/88 H 93 05/17/19 10:10 05/17/19 11:09 05/17/19 11:09 05/17/19 10:10 05/17/19 10:10 Oxygen Flow Rate (L/min) 2 Oxygen Delivery Method Room Air Weight: 158 lb 4.67 oz Body Mass Index (BMI) 22.1 Intake and Output for Last 24 Hours 05/15/19 05/16/19 05/17/19 23:59 23:59 23:59 Intake Total 1350.0 / 1350.0 3367.5 / 3367.5 865 / 865 Output Total 1225 / 1225 850 / 850 Balance 1350.0 / 1350.0 2142.5 / 2142.5 15 / 15 General: Alert, Oriented x3, Cooperative, - - Unkempt HEENT: Atraumatic, PERRLA, EOMI, Normocephalic Oral: Dry Mucosa Neck: Supple, No JVD, Negative Carotid Bruits Lungs: Diminished, Wheezes Cardiovascular: - - Atrial fibrillation, rate controlled Abdomen: Bowel Sounds Present, Soft, Non Tender, Non-Distended Extremities: No clubbing, No cyanosis, No edema, Capillary Refill Less than 3 Seconds Skin: No rashes, No breakdown Musculoskeletal: No Tenderness to Palpation of Joints or Extremities Neurological: Cranial nerves II-XII grossly intact, Neuro grossly intact Psych/Mental Status: Normal Affect, Appropriate Microbiology Past 72 Hours 05/15/19 12:55 Blood Culture (Wb) - Left Forearm Blood Culture - Preliminary Coag Negative Staph 05/15/19 13:06 Urine, Clean Catch Urine Culture - Final Staphylococcus haemolyticus 05/15/19 20:25 Mucosa - Nose Respiratory Panel (PCR) - Final 05/15/19 13:06 Urine, Random Streptococcus pneumoniae Antigen (M - Final 05/15/19 13:06 Urine, Random Legionella Antigen - Final Laboratory Results 05/17/19 07:09: Sodium 132 L, Potassium 3.9, Chloride 99, Carbon Dioxide 27.0, Anion Gap 6, BUN 19 H, Creatinine 0.69 L, Estim Creat Clear Calc 55.84, Est GFR (MDRD) Af Amer 141, Est GFR (MDRD) Non-Af 117, BUN/Creatinine Ratio 27.7 H, Glucose 147 H, Calcium 8.4 L Current Medications Albuterol/Ipratropium (Duoneb) 3 ml INHALATION Q4HWA.RT [facility] Last Admin: 05/17/19 11:09 Dose: 3 ml Documented by: Calamine/Phenol (Calmoseptine Ointment) 1 applic TOPICAL BID [facility]; Protocol Last Admin: 05/17/19 09:10 Dose: 1 applicatio Documented by: Dextrose (D50w Syringe) 0 gm IV X1 PRN; Protocol PRN Reason: Hypoglycemia Enoxaparin Sodium (Lovenox) 40 mg SC DAILY@1000 [facility] Last Admin: 05/17/19 09:10 Dose: 40 mg Documented by: Glucagon () 1 mg IM .X1 PRN PRN Reason: Hypoglycemia Guaifenesin (Mucinex) 1,200 mg PO BID [facility] Last Admin: 05/17/19 09:10 Dose: 1,200 mg Documented by: Vancomycin IV Pharmacy to Dose (1 ea/ Sodium Chloride) 500 mls @ 250 mls/hr IV PRN PRN; Protocol PRN Reason: Rx to Dose Sodium Chloride () 500 mls @ 15 mls/hr IV PRN PRN PRN Reason: Blood Transfusion Sodium Chloride () 250 mls @ 15 mls/hr IV .[id number] PRN PRN Reason: Saline Flush Vancomycin HCl 750 mg/ Sodium (Chloride) 265 mls @ 250 mls/hr IV Q12H [facility] Last Infusion: 05/17/19 03:15 Dose: Infused Documented by: Melatonin (Melatonin) 3 mg PO QHS PRN PRN Reason: SLEEP Last Admin: 05/16/19 21:48 Dose: 3 mg Documented by: Methylprednisolone (Solu-Medrol) 40 mg IV Q8 [facility] Last Admin: 05/17/19 06:18 Dose: 40 mg Documented by: Ondansetron HCl (Zofran) 4 mg IV Q8H PRN PRN PRN Reason: NAUSEA/VOMITING Sodium Chloride () 10 - 40 ml IV UD PRN PRN Reason: SALINE FLUSH Last Admin: 05/16/19 21:48 Dose: 10 ml Documented by: Medical Necessity - Tobacco Use Smoking Status: Current every day smoker Tobacco Use: Cigarettes Assessment/Plan All Active Problems Sepsis due to pneumonia (Acute) Community acquired pneumonia (Acute) Hypoxemia (Acute) Pneumococcal pneumonia (Acute) Severe sepsis (Acute) Shortness of breath (Acute) Respiratory failure (Acute) COPD exacerbation (Acute) Fall at home (Resolved) Hyponatremia (Resolved) 1. Acute hypoxic respiratory insufficiency secondary to exacerbation of COPD-respiratory panel negative. Chest x-ray without acute process. Albuterol and DuoNeb aerosols. IV Solu-Medrol. Transition to prednisone tomorrow. Continue supplement oxygen to maintain O2 at or above 90%. 2. Acute staph hemolyticus UTI with associated coag negative staph bacteremia- 1/2 blood cultures positive. Urine culture growing Staphylococcus hemolyticus. Continue IV vancomycin. No leukocytosis, afebrile. Will plan to transition to oral doxycycline tomorrow. 3. Debility, failure to thrive-PT/OT. SNF at discharge. 4. Hypertension-stable, not on medication regimen. 5. Hyponatremia, chronic-IV fluids, trend BMP. 6. 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 7. Chronic atrial fibrillation-rate controlled. Not on oral anticoagulation or rate control regimen. 8. Tobacco dependence-encourage cessation. 9. Chronic alcohol abuse-advised cessation. [facility] protocol. DVT prophylaxis-Lovenox subcu CODE STATUS: DNR CCA This patient was seen by VIRAL AmatoC under the supervision of Dr. Fuentes. <Christiano Fuentes - Last Filed: 05/17/19 12:42> - Physical Exam Vitals/I&O's: Vital Signs Temp Pulse Resp BP Pulse Ox 97.9 F 78 22 H 120/88 H 93 05/17/19 10:10 05/17/19 11:09 05/17/19 11:09 05/17/19 10:10 05/17/19 10:10 Oxygen Flow Rate (L/min) 2 Oxygen Delivery Method Room Air Weight: 71.8 kg Body Mass Index (BMI) 22.1 Intake and Output for Last 24 Hours 05/15/19 05/16/19 05/17/19 23:59 23:59 23:59 Intake Total 1350.0 / 1350.0 3367.5 / 3367.5 865 / 865 Output Total 1225 / 1225 850 / 850 Balance 1350.0 / 1350.0 2142.5 / 2142.5 15 / 15 Microbiology Past 72 Hours 05/15/19 12:55 Blood Culture (Wb) - Left Forearm Blood Culture - Preliminary Coag Negative Staph 05/15/19 13:06 Urine, Clean Catch Urine Culture - Final Staphylococcus haemolyticus 05/15/19 20:25 Mucosa - Nose Respiratory Panel (PCR) - Final 05/15/19 13:06 Urine, Random Streptococcus pneumoniae Antigen (M - Final 05/15/19 13:06 Urine, Random Legionella Antigen - Final Laboratory Results 05/17/19 07:09: Sodium 132 L, Potassium 3.9, Chloride 99, Carbon Dioxide 27.0, Anion Gap 6, BUN 19 H, Creatinine 0.69 L, Estim Creat Clear Calc 55.84, Est GFR (MDRD) Af Amer 141, Est GFR (MDRD) Non-Af 117, BUN/Creatinine Ratio 27.7 H, Glucose 147 H, Calcium 8.4 L Current Medications Albuterol/Ipratropium (Duoneb) 3 ml INHALATION Q4HWA.RT [facility] Last Admin: 05/17/19 11:09 Dose: 3 ml Documented by: Calamine/Phenol (Calmoseptine Ointment) 1 applic TOPICAL BID [facility]; Protocol Last Admin: 05/17/19 09:10 Dose: 1 applicatio Documented by: Dextrose (D50w Syringe) 0 gm IV X1 PRN; Protocol PRN Reason: Hypoglycemia Enoxaparin Sodium (Lovenox) 40 mg SC DAILY@1000 [facility] Last Admin: 05/17/19 09:10 Dose: 40 mg Documented by: Glucagon () 1 mg IM .X1 PRN PRN Reason: Hypoglycemia Guaifenesin (Mucinex) 1,200 mg PO BID [facility] Last Admin: 05/17/19 09:10 Dose: 1,200 mg Documented by: Vancomycin IV Pharmacy to Dose (1 ea/ Sodium Chloride) 500 mls @ 250 mls/hr IV PRN PRN; Protocol PRN Reason: Rx to Dose Sodium Chloride () 500 mls @ 15 mls/hr IV PRN PRN PRN Reason: Blood Transfusion Sodium Chloride () 250 mls @ 15 mls/hr IV .[id number] PRN PRN Reason: Saline Flush Vancomycin HCl 750 mg/ Sodium (Chloride) 265 mls @ 250 mls/hr IV Q12H [facility] Last Infusion: 05/17/19 03:15 Dose: Infused Documented by: Melatonin (Melatonin) 3 mg PO QHS PRN PRN Reason: SLEEP Last Admin: 05/16/19 21:48 Dose: 3 mg Documented by: Methylprednisolone (Solu-Medrol) 40 mg IV Q8 [facility] Last Admin: 05/17/19 06:18 Dose: 40 mg Documented by: Ondansetron HCl (Zofran) 4 mg IV Q8H PRN PRN PRN Reason: NAUSEA/VOMITING Sodium Chloride () 10 - 40 ml IV UD PRN PRN Reason: SALINE FLUSH Last Admin: 05/16/19 21:48 Dose: 10 ml Documented by: Assessment/Plan This patient was seen in conjunction with TAISHA Amato . I have independently interviewed and examined the patient and reviewed pertinent historical, laboratory, and other data. Please refer to TAISHA Amato note for details of this patient's presentation, findings, and recommendations. I have reviewed TAISHA Amato note and concur with documented findings. In brief, patient is a an 84-year-old gentleman who presented with shortness of breath and assessment of COPD with acute exacerbation made admitted to regular nursing floor for further management 05/17/2019: Blood cultures came back positive for coagulase negative staph possibly contaminant. Breathing slightly improved. Physical Examination: GENERAL: cooperative HEENT: Atraumatic; EYES; Anicteric, Normal Conjunctiva NECK; supple, normal thyroid, RESPIRATORY: Diminished to auscultation CARDIOVASCULAR: Irregular S1 S2, GI: soft, normoactive bowel sounds, : No Renal angle tenderness; EXTREMITIES: No edema, no clubbing, MUSCULOSKELETAL: no muscle waisting NEURO: Awake; significant tremors at rest. SKIN: No Rash PSYCH; Flat affect Assessment: 1. Acute hypoxic respiratory failure 2. COPD with acute exacerbation 3. Bacteremia with gram-positive cocci in clusters 4. Essential hypertension 5. Hyponatremia 6. Chronic A. fib 7. Chronic alcohol use 8. Physical debility Recommendations: 1. I have discussed the results of my overview and impressions with the patient 2. Options for management were reviewed Code Visit Inpatient E&M: 60847 Subs Hosp L2
--- NOTE | 2019-05-17 14:57 | NURSING ---
This nurse reviewed charting of SN Jose Eduardo
[2019-05-17] MEDS: LORazepam 0.5 MG Tablet PO (15:20)
[2019-05-17] MEDS: 0.9% Saline Lock 10 ML Syringe IV (21:57)
[2019-05-18] VITALS (15 sets, daily range): BP systolic 119–155; BP diastolic 78–93; PULSE 75–105; RESP 18–30; TEMP 36.5–36.7; O2SAT 91–97
[2019-05-18 04:03] LABS: Vancomycin, Trough Level 8.2 ug/mL (5.0-15.0)
[2019-05-18] MEDS: 0.9% Saline Lock 10 ML Syringe IV (06:31)
--- NOTE | 2019-05-18 06:44 | PCM.RX.CS ---
Consult Pharmacy has been consulted to manage selected antiobiotic: Vancomycin Type of Consult: Follow-up Labs: Sodium 132 mmol/L (136-145) L 05/17/19 07:09 Potassium 3.9 mmol/L (3.5-5.1) 05/17/19 07:09 Chloride 99 mmol/L (98-107) 05/17/19 07:09 Carbon Dioxide 27.0 mmol/L (21.0-32.0) 05/17/19 07:09 Anion Gap 6 (5-15) 05/17/19 07:09 BUN 19 mg/dL (7-18) H 05/17/19 07:09 Creatinine 0.69 mg/dL (0.70-1.30) L 05/17/19 07:09 Est GFR (MDRD) Af Amer 141 mL/min (>60) 05/17/19 07:09 Est GFR (MDRD) Non-Af 117 mL/min (>60) 05/17/19 07:09 BUN/Creatinine Ratio 27.7 RATIO (10-20) H 05/17/19 07:09 Glucose 147 mg/dL (74-106) H 05/17/19 07:09 Vancomycin Trough 8.2 ug/mL (5.0-15.0) 05/18/19 02:35 Microbiology: Microbiology 05/15/19 11:40 Blood Culture (Wb) - Right Forearm Blood Culture - Preliminary No growth in 48 hours. 05/15/19 12:55 Blood Culture (Wb) - Left Forearm Blood Culture - Preliminary Coag Negative Staph 05/15/19 13:06 Urine, Clean Catch Urine Culture - Final Staphylococcus haemolyticus 05/15/19 20:25 Mucosa - Nose Respiratory Panel (PCR) - Final 05/15/19 13:06 Urine, Random Streptococcus pneumoniae Antigen (M - Final 05/15/19 13:06 Urine, Random Legionella Antigen - Final Goal Trough: 15-20 mcg/mL Pharmacy Plan for Drug Dosing: Pharmacy Service will continue to monitor and adjust dosing as required. Medications Vancomycin HCl 1,250 mg/ (Sodium Chloride) 275 mls @ 167 mls/hr IV Q12H [facility] TROUGH 8.2 [place]CREASE TI 1250 Q12H NEXT TROUGH 05/20 @ 0230 Follow-Up Labs: Trough Vancomycin Labs to be done on [date and time ordered]: 05/20 @ 0230
[2019-05-18] MEDS: Ipratropium/Albuterol Sulfate 3 ML AMPUL.NEB INHALATION ×4 (07:19→19:02)
[2019-05-18] MEDS: guaiFENesin 1,200 MG Tablet 1200 MG PO ×2 (08:08→21:20)
[2019-05-18] MEDS: Menthol/Lanolin/Calamine/Znox 113 GM Tube 1 APPLIC TOPICAL ×2 (08:08→21:20)
[2019-05-18] MEDS: Enoxaparin 40 MG/0.4 ML Syringe SC (08:08)
--- NOTE | 2019-05-18 10:02 | PN_ITS ---
<Chica Caldwell - Last Filed: 05/18/19 10:23> Patient Problems: Active and Suspected Problems Sepsis due to pneumonia (Acute) Community acquired pneumonia (Acute) Hypoxemia (Acute) COPD exacerbation (Acute) Subjective: Patient seen and examined. Reports significant improvement in breathing. Oxygen stable on room air. Agreeable to SNF, plan for discharge to SNF tomorrow. - Physical Exam Vitals/I&O's: Vital Signs Temp Pulse Resp BP Pulse Ox 98.0 F 100 22 H 144/88 H 93 05/18/19 05:45 05/18/19 07:19 05/18/19 07:19 05/18/19 05:45 05/18/19 07:19 Oxygen Flow Rate (L/min) 2 Oxygen Delivery Method Room Air Weight: 158 lb 4.67 oz Body Mass Index (BMI) 22.1 Intake and Output for Last 24 Hours 05/16/19 05/17/19 05/18/19 23:59 23:59 23:59 Intake Total 3367.5 / 3367.5 2970 / 2970 365 / 365 Output Total 1225 / 1225 1850 / 1850 275 / 275 Balance 2142.5 / 2142.5 1120 / 1120 90 / 90 General: Alert, Oriented x3, Cooperative HEENT: Atraumatic, PERRLA, EOMI, Normocephalic Neck: Supple, No JVD, Negative Carotid Bruits Lungs: Diminished, - - Scattered wheezes, improved Cardiovascular: - - Atrial fibrillation, rate controlled Abdomen: Bowel Sounds Present, Soft, Non Tender, Non-Distended Extremities: No clubbing, No cyanosis, No edema, Capillary Refill Less than 3 Seconds Skin: No rashes, No breakdown Musculoskeletal: No Tenderness to Palpation of Joints or Extremities, - - Bilateral upper extremity tremors Neurological: Cranial nerves II-XII grossly intact, Neuro grossly intact Psych/Mental Status: Normal Affect, Appropriate Microbiology Past 72 Hours 05/15/19 12:55 Blood Culture (Wb) - Left Forearm Blood Culture - Preliminary Coag Negative Staph 05/15/19 11:40 Blood Culture (Wb) - Right Forearm Blood Culture - Preliminary No growth in 48 hours. 05/15/19 13:06 Urine, Clean Catch Urine Culture - Final Staphylococcus haemolyticus 05/15/19 20:25 Mucosa - Nose Respiratory Panel (PCR) - Final 05/15/19 13:06 Urine, Random Streptococcus pneumoniae Antigen (M - Final 05/15/19 13:06 Urine, Random Legionella Antigen - Final Laboratory Results 05/18/19 02:35: Vancomycin Trough 8.2 Current Medications Albuterol/Ipratropium (Duoneb) 3 ml INHALATION Q4HWA.RT [facility] Last Admin: 05/18/19 07:19 Dose: 3 ml Documented by: Calamine/Phenol (Calmoseptine Ointment) 1 applic TOPICAL BID [facility]; Protocol Last Admin: 05/18/19 08:08 Dose: 1 applicatio Documented by: Dextrose (D50w Syringe) 0 gm IV X1 PRN; Protocol PRN Reason: Hypoglycemia Enoxaparin Sodium (Lovenox) 40 mg SC DAILY@1000 [facility] Last Admin: 05/18/19 08:08 Dose: 40 mg Documented by: Glucagon () 1 mg IM .X1 PRN PRN Reason: Hypoglycemia Guaifenesin (Mucinex) 1,200 mg PO BID [facility] Last Admin: 05/18/19 08:08 Dose: 1,200 mg Documented by: Vancomycin IV Pharmacy to Dose (1 ea/ Sodium Chloride) 500 mls @ 250 mls/hr IV PRN PRN; Protocol PRN Reason: Rx to Dose Sodium Chloride () 500 mls @ 15 mls/hr IV PRN PRN PRN Reason: Blood Transfusion Sodium Chloride () 250 mls @ 15 mls/hr IV .[id number] PRN PRN Reason: Saline Flush Vancomycin HCl 1,250 mg/ (Sodium Chloride) 275 mls @ 167 mls/hr IV Q12H [facility] Lorazepam (Ativan) 0.5 mg PO Q12H PRN PRN PRN Reason: ANXIETY Last Admin: 05/17/19 15:20 Dose: 0.5 mg Documented by: Melatonin (Melatonin) 3 mg PO QHS PRN PRN Reason: SLEEP Last Admin: 05/16/19 21:48 Dose: 3 mg Documented by: Methylprednisolone (Solu-Medrol) 40 mg IV Q8 [facility] Last Admin: 05/18/19 06:30 Dose: 40 mg Documented by: Ondansetron HCl (Zofran) 4 mg IV Q8H PRN PRN PRN Reason: NAUSEA/VOMITING Sodium Chloride () 10 - 40 ml IV UD PRN PRN Reason: SALINE FLUSH Last Admin: 05/18/19 06:31 Dose: 10 ml Documented by: Medical Necessity - Tobacco Use Smoking Status: Current every day smoker Tobacco Use: Cigarettes Assessment/Plan All Active Problems Sepsis due to pneumonia (Acute) Community acquired pneumonia (Acute) Hypoxemia (Acute) Pneumococcal pneumonia (Acute) Severe sepsis (Acute) Shortness of breath (Acute) Respiratory failure (Acute) COPD exacerbation (Acute) Fall at home (Resolved) Hyponatremia (Resolved) 1. Acute hypoxic respiratory insufficiency secondary to exacerbation of COPD- respiratory panel negative. Chest x-ray without acute process. Albuterol and DuoNeb aerosols. Transition to prednisone. Continue supplement oxygen to maintain O2 at or above 90%. 2. Acute staph hemolyticus UTI- Urine culture growing Staphylococcus hemolyticus. Afebrile, no leukocytosis. Discontinue IV vancomycin, transition to oral doxycycline. 3. Staph bacteremia, suspected contaminant- Only 1/2 blood cultures positive. No leukocytosis, afebrile. 4. Debility, failure to thrive-PT/OT. SNF at discharge. 5. Hypertension-stable, not on medication regimen. 6. Hyponatremia, chronic-IV fluids, trend BMP. 7. 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 8. Chronic atrial fibrillation-rate controlled. Not on oral anticoagulation or rate control regimen. 9. Tobacco dependence-encourage cessation. 10. Chronic alcohol abuse-advised cessation. [facility] protocol. DVT prophylaxis-Lovenox subcu CODE STATUS: DNR CCA Discharge planning: SNF tomorrow. This patient was seen by TAISHA Amato under the supervision of Dr. Fuentes. <Christaino Fuentes - Last Filed: 05/18/19 11:04> - Physical Exam Vitals/I&O's: Vital Signs Temp Pulse Resp BP Pulse Ox 98.0 F 100 22 H 144/88 H 93 05/18/19 05:45 05/18/19 07:19 05/18/19 07:19 05/18/19 05:45 05/18/19 07:19 Oxygen Flow Rate (L/min) 2 Oxygen Delivery Method Room Air Weight: 71.8 kg Body Mass Index (BMI) 22.1 Intake and Output for Last 24 Hours 05/16/19 05/17/19 05/18/19 23:59 23:59 23:59 Intake Total 3367.5 / 3367.5 2970 / 2970 365 / 365 Output Total 1225 / 1225 1850 / 1850 275 / 275 Balance 2142.5 / 2142.5 1120 / 1120 90 / 90 Microbiology Past 72 Hours 05/15/19 12:55 Blood Culture (Wb) - Left Forearm Blood Culture - Preliminary Coag Negative Staph 05/15/19 11:40 Blood Culture (Wb) - Right Forearm Blood Culture - Preliminary No growth in 48 hours. 05/15/19 13:06 Urine, Clean Catch Urine Culture - Final Staphylococcus haemolyticus 05/15/19 20:25 Mucosa - Nose Respiratory Panel (PCR) - Final 05/15/19 13:06 Urine, Random Streptococcus pneumoniae Antigen (M - Final 05/15/19 13:06 Urine, Random Legionella Antigen - Final Laboratory Results 05/18/19 02:35: Vancomycin Trough 8.2 Current Medications Albuterol/Ipratropium (Duoneb) 3 ml INHALATION Q4HWA.RT [facility] Last Admin: 05/18/19 07:19 Dose: 3 ml Documented by: Calamine/Phenol (Calmoseptine Ointment) 1 applic TOPICAL BID [facility]; Protocol Last Admin: 05/18/19 08:08 Dose: 1 applicatio Documented by: Dextrose (D50w Syringe) 0 gm IV X1 PRN; Protocol PRN Reason: Hypoglycemia Doxycycline Monohydrate (Doxycycline) 100 mg PO BID [facility] Enoxaparin Sodium (Lovenox) 40 mg SC DAILY@1000 [facility] Last Admin: 05/18/19 08:08 Dose: 40 mg Documented by: Glucagon () 1 mg IM .X1 PRN PRN Reason: Hypoglycemia Guaifenesin (Mucinex) 1,200 mg PO BID [facility] Last Admin: 05/18/19 08:08 Dose: 1,200 mg Documented by: Sodium Chloride () 500 mls @ 15 mls/hr IV PRN PRN PRN Reason: Blood Transfusion Sodium Chloride () 250 mls @ 15 mls/hr IV .[id number] PRN PRN Reason: Saline Flush Lorazepam (Ativan) 0.5 mg PO Q12H PRN PRN PRN Reason: ANXIETY Last Admin: 05/17/19 15:20 Dose: 0.5 mg Documented by: Melatonin (Melatonin) 3 mg PO QHS PRN PRN Reason: SLEEP Last Admin: 05/16/19 21:48 Dose: 3 mg Documented by: Ondansetron HCl (Zofran) 4 mg IV Q8H PRN PRN PRN Reason: NAUSEA/VOMITING Prednisone () 40 mg PO DAILY@0800 [facility]; Taper Stop: 05/31/19 07:59 Sodium Chloride () 10 - 40 ml IV UD PRN PRN Reason: SALINE FLUSH Last Admin: 05/18/19 06:31 Dose: 10 ml Documented by: Assessment/Plan This patient was seen in conjunction with TAISHA Amato . I have independently interviewed and examined the patient and reviewed pertinent historical, laboratory, and other data. Please refer to TAISHA Amato note for details of this patient's presentation, findings, and recommendations. I have reviewed TAISHA Amato note and concur with documented findings. In brief, patient is a an 84-year-old gentleman who presented with shortness of breath and assessment of COPD with acute exacerbation made admitted to regular nursing floor for further management 05/17/2019: Blood cultures came back positive for coagulase negative staph possibly contaminant. Breathing slightly improved. 05/18/2019 patient breathing status improved. He is agreeable to being [facility] (scheduled on 05/19/2019) Physical Examination: GENERAL: cooperative HEENT: Atraumatic; EYES; Anicteric, Normal Conjunctiva NECK; supple, normal thyroid, RESPIRATORY: Diminished to auscultation CARDIOVASCULAR: Irregular S1 S2, GI: soft, normoactive bowel sounds, : No Renal angle tenderness; EXTREMITIES: No edema, no clubbing, MUSCULOSKELETAL: no muscle waisting NEURO: Awake; significant tremors at rest. SKIN: No Rash PSYCH; Flat affect Assessment: 1. Acute hypoxic respiratory failure 2. COPD with acute exacerbation 3. Bacteremia with coagulase negative staph possibly contaminant 4. Essential hypertension 5. Hyponatremia 6. Chronic A. fib 7. Chronic alcohol use 8. Physical debility Recommendations: 1. I have discussed the results of my overview and impressions with the patient 2. Options for management were reviewed Code Visit Inpatient E&M: 08800 Subs Hosp L2
[2019-05-18] MEDS: Doxycycline 100 MG CAPSULE PO ×2 (14:11→21:20)
[2019-05-18] MEDS: MELATONIN 3 MG TABLET PO (21:22)
[2019-05-19 02:00] VITALS: BP 147/95; PULSE 91; RESP 20; TEMP 36.7; O2SAT 95
[2019-05-19 02:59] VITALS: PULSE 72
[2019-05-19 06:00] VITALS: BP 120/81; PULSE 90; RESP 20; TEMP 36.6; O2SAT 95
[2019-05-19 06:59] VITALS: PULSE 79; RESP 25; O2SAT 95
[2019-05-19] MEDS: Ipratropium/Albuterol Sulfate 3 ML AMPUL.NEB INHALATION (06:59)
[2019-05-19 07:46] VITALS: PULSE 75
--- NOTE | 2019-05-19 08:45 | PCM.EXTCARCO ---
- Diet 05/15/19 17:00 Diet: Cardiac/Low Cholesterol Food consistency:: Regular Liquid Consistency:: Regular/Thin Type of Dietary Supplement:: Ensure Complete Is pt able to select menu?: Yes - Routine Orders/Code Status Enema Type: Fleetz Enema Frequency: Daily PRN Suppository Type: Dulcolax 10mg Suppository Frequency: Daily PRN O2 Liters per Minute: 2 O2 Frequency: PRN Keep PO Greater than or Equal to (%): 90 Routine Lab Work: CBC, BMP, - - Every other week Code Status: DNRCC-A - Suggestions for Active Care Change Position every (hours): 2 Times a day to sit in chair: 3 - Therapies Physical Therapy: Eval and Treat Occupational Therapy: Eval and Treat - Problem/Diagnosis (1) Chronic alcohol abuse Status: Chronic Current Visit: No (2) History of atrial fibrillation Status: Chronic Current Visit: No (3) Tobacco dependence syndrome Status: Chronic Current Visit: No (4) History of hypothyroidism Status: Chronic Current Visit: No (5) COPD exacerbation Status: Acute Current Visit: Yes (6) UTI (urinary tract infection) Status: Acute Current Visit: Yes - Allergies/Procedures Done in Hospital Allergies/Adverse Reactions: Allergies No Known Allergies Allergy (Verified 05/15/19 10:33) Procedures: None - Type of Care/Length of Stay Estimated LOS: Convalescent Care Less Than 30 days Type of Care Needed: Skilled Rehab Potential: Fair Prognosis: Fair - Additional Orders/Day of Discharge H&P will serve as current which was dated: 05/15/19 Day of Discharge: 05/19/19 - Dietary and Speech Recommendations Dietitian Recommendations/Changes: Recommend regular diet w/ assistance at meals d/t tremors. Continue Ensure Enlive w/ meals - Follow Up Care Primary Care Physician: Brandon Hennessy MD [Primary Care Provider] - Please follow up with your Primary Care Physician in: 1 Week
--- NOTE | 2019-05-19 08:50 | PCM.DC.SUM ---
<Chica Caldwell - Last Filed: 05/19/19 08:56> Discharge Date and Diagnosis Date of Admission: 05/15/19 Date of Discharge: 05/19/19 - Primary Discharge Diagnosis Active and Suspected Problems 1. Acute hypoxic respiratory insufficiency secondary to exacerbation of COPD 2. Acute staph hemolyticus UTI 3. Staph bacteremia, suspected contaminant 4. Debility, failure to thrive 5. Hypertension 6. Hyponatremia, chronic 7. Chronic upper extremity tremors 8. Chronic atrial fibrillation 9. Tobacco dependence 10. Chronic alcohol abuse - Secondary Discharge Diagnosis Chronic Problems Afib (Chronic) Chronic alcohol abuse (Chronic) History of atrial fibrillation (Chronic) Tobacco dependence syndrome (Chronic) History of hypothyroidism (Chronic) History of COPD (Chronic) Hospital Course and Treatment Imaging Results: Diagnostic Data Chest X-Ray 05/15/19 12:10 IMPRESSION: No acute cardiopulmonary disease. COPD is noted. Electronically Signed: Kurtis Herrera DO at 12:28 EDT Tel , Service support , Operations: None Procedures: None Summary of Care Provided: The patient is a 84 year old M admitted 05/15/2019 due to shortness of breath, weakness. 1. Acute hypoxic respiratory insufficiency secondary to exacerbation of COPD-respiratory panel negative. Chest x-ray without acute process. Albuterol and DuoNeb aerosols. Transition to prednisone taper at discharge. Continue supplement oxygen to maintain O2 at or above 90%. Follow-up with primary care physician in 1 week. 2. Acute staph hemolyticus UTI- Urine culture growing Staphylococcus hemolyticus. Afebrile, no leukocytosis. Discontinue IV vancomycin, transition to oral doxycycline x3 days at discharge. 3. Staph bacteremia, suspected contaminant- Only 1/2 blood cultures positive. No leukocytosis, afebrile. 4. Debility, failure to thrive-PT/OT. SNF at discharge. 5. Hypertension-stable, not on medication regimen. 6. Hyponatremia, chronic-stable. 7. 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 8. Chronic atrial fibrillation-rate controlled. Not on oral anticoagulation or rate control regimen. 9. Tobacco dependence-encourage cessation. 10. Chronic alcohol abuse-advised cessation. General: Alert, Oriented x3, Cooperative HEENT: Atraumatic, PERRLA, EOMI, Normocephalic Neck: Supple, No JVD, Negative Carotid Bruits Lungs: Diminished, - - Scattered wheezes, improved Cardiovascular: - - Atrial fibrillation, rate controlled Abdomen: Bowel Sounds Present, Soft, Non Tender, Non-Distended Extremities: No clubbing, No cyanosis, No edema, Capillary Refill Less than 3 Seconds Skin: No rashes, No breakdown Musculoskeletal: No Tenderness to Palpation of Joints or Extremities, - - Bilateral upper extremity tremors Neurological: Cranial nerves II-XII grossly intact, Neuro grossly intact Psych/Mental Status: Normal Affect, Appropriate Patient seen and examined prior to discharge. Physical assessment as noted above. Patient is stable for discharge with follow up recommendations as noted above. This patient was seen by TAISHA Amato under the supervision of Dr. Stephens. - Physical Exam Vitals/I&O's: Vital Signs Temp Pulse Resp BP Pulse Ox 97.9 F 75 25 H 120/81 H 95 05/19/19 06:00 05/19/19 07:46 05/19/19 06:59 05/19/19 06:00 05/19/19 06:59 Oxygen Flow Rate (L/min) 2 Oxygen Delivery Method Room Air Weight: 158 lb 4.67 oz Body Mass Index (BMI) 22.1 Intake and Output for Last 24 Hours 05/17/19 05/18/19 05/19/19 23:59 23:59 23:59 Intake Total 2970 / 2970 2405 / 2405 240 / 240 Output Total 1850 / 1850 1125 / 1125 200 / 200 Balance 1120 / 1120 1280 / 1280 40 / 40 Microbiology Past 72 Hours 05/15/19 12:55 Blood Culture (Wb) - Left Forearm Blood Culture - Preliminary Coag Negative Staph 05/15/19 11:40 Blood Culture (Wb) - Right Forearm Blood Culture - Preliminary No growth in 48 hours. 05/15/19 13:06 Urine, Clean Catch Urine Culture - Final Staphylococcus haemolyticus 05/15/19 20:25 Mucosa - Nose Respiratory Panel (PCR) - Final Current Medications Albuterol/Ipratropium (Duoneb) 3 ml INHALATION Q4HWA.RT RYANN Last Admin: 05/19/19 06:59 Dose: 3 ml Documented by: Calamine/Phenol (Calmoseptine Ointment) 1 applic TOPICAL BID [facility]; Protocol Last Admin: 05/18/19 21:20 Dose: 1 applicatio Documented by: Dextrose (D50w Syringe) 0 gm IV X1 PRN; Protocol PRN Reason: Hypoglycemia Doxycycline Monohydrate (Doxycycline) 100 mg PO BID [facility] Last Admin: 05/18/19 21:20 Dose: 100 mg Documented by: Enoxaparin Sodium (Lovenox) 40 mg SC DAILY@1000 RYANN Last Admin: 05/18/19 08:08 Dose: 40 mg Documented by: Glucagon () 1 mg IM .X1 PRN PRN Reason: Hypoglycemia Guaifenesin (Mucinex) 1,200 mg PO BID [facility] Last Admin: 05/18/19 21:20 Dose: 1,200 mg Documented by: Sodium Chloride () 500 mls @ 15 mls/hr IV PRN PRN PRN Reason: Blood Transfusion Sodium Chloride () 250 mls @ 15 mls/hr IV .[id number] PRN PRN Reason: Saline Flush Lorazepam (Ativan) 0.5 mg PO Q12H PRN PRN PRN Reason: ANXIETY Last Admin: 05/17/19 15:20 Dose: 0.5 mg Documented by: Melatonin (Melatonin) 3 mg PO QHS PRN PRN Reason: SLEEP Last Admin: 05/18/19 21:22 Dose: 3 mg Documented by: Ondansetron HCl (Zofran) 4 mg IV Q8H PRN PRN PRN Reason: NAUSEA/VOMITING Prednisone () 40 mg PO DAILY@0800 [facility]; Taper Stop: 05/31/19 07:59 Sodium Chloride () 10 - 40 ml IV UD PRN PRN Reason: SALINE FLUSH Last Admin: 05/18/19 06:31 Dose: 10 ml Documented by: Home Medications: Medications to take at Discharge Albuterol Aerosols [Ventolin Aerosols] 2.5 mg INHALATION Q2H PRN PRN #1 vial.neb. 05/19/19 Doxycycline 100 mg PO BID cap 05/19/19 Ipratropium/Albuterol Sulfate [Duoneb] 3 ml INHALATION Q4HWA.RT ampul.neb 05/19/19 Prednisone See Taper PO DAILY #30 tab 05/19/19 Following Prescrptions Were Given to Patient: Prednisone See Taper PO DAILY #30 tab Albuterol Aerosols [Ventolin Aerosols] 2.5 mg INHALATION Q2H PRN PRN #1 vial.neb. PRN Reason: Shortness Of Breath Primary Care Physician: Brandon Hennessy MD [Primary Care Provider] - Please follow up with your Primary Care Physician in: 1 Week Disposition: Assisted facility Minutes spent on discharge:: 35 Patient Condition:: Stable Medical Necessity - Tobacco Use Smoking Status: Current every day smoker Tobacco Use: Cigarettes Meaningful Use Info Meaningful Use Diagnoses (Choose all that apply): None applicable <Tammie Stephens E - Last Filed: 05/19/19 11:40> Discharge Date and Diagnosis - Secondary Discharge Diagnosis Chronic Problems Afib (Chronic) Chronic alcohol abuse (Chronic) History of atrial fibrillation (Chronic) Tobacco dependence syndrome (Chronic) History of hypothyroidism (Chronic) History of COPD (Chronic) Hospital Course and Treatment Summary of Care Provided: Hospitalist note: Discharge summary above reviewed and I concur with the above discharge and treatment plan. Patient admitted because of weakness, shortness of breath and productive cough, found to have acute COPD exacerbation as well as staph hemolyticus acute cystitis. His chest x-ray showed no acute findings. Urinalysis revealed positive nitrite, 100 leukocyte esterase, 0-5 WBCs and 1+ bacteria. Patient was treated with IV steroids, IV antibiotics and bronchodilators. Initially, he required oxygen to maintain his pulse ox. With treatment, patient symptoms improved and he was able to come off oxygen. One bottle of blood culture revealed coag negative staph which considered as a contaminant and the other blood culture revealed no growth in 48 hours. Patient remained afebrile throughout the hospital stay and he had no leukocytosis. Pneumonia and Legionella antigen were negative. Respiratory panel for viruses were negative. Urine culture revealed staph hemolyticus. Patient discharged to halfway facility in a stable condition, discharged on doxycycline, tapering course of prednisone as well as DuoNeb nebulizer treatment and albuterol as needed, recommended follow-up with PCP in 1 week. - Physical Exam General: Alert, Oriented x3, Cooperative, No apparent distress. HEENT: Atraumatic, PERRLA, EOMI. Neck: Supple, No JVD, Negative Carotid Bruits, Trachea Midline, Thyroid Normal. Lungs: Decreased breath sounds bilateral, occasional wheezes, rhonchi. No crackles.. Cardiovascular: irrgular Rhythm, Normal S1, Normal S2, PMI Normal. Abdomen: Bowel Sounds Present, Soft, Non Tender, Non-Distended, No Hepato-splenomegaly. Extremities: No clubbing, No cyanosis, No edema Skin: No rashes, No breakdown Neurological: Neuro grossly intact Vital Signs are stable. This note was generated with [employer] dictation software. It may contain incorrect words, spelling, and punctuation that were not noted in checking the note before signing. - Physical Exam Vitals/I&O's: Vital Signs Temp Pulse Resp BP Pulse Ox 98.4 F 79 18 138/81 H 96 05/19/19 10:00 05/19/19 10:00 05/19/19 10:00 05/19/19 10:00 05/19/19 10:00 Oxygen Flow Rate (L/min) 2 Oxygen Delivery Method Room Air Weight: 158 lb 4.67 oz Body Mass Index (BMI) 22.1 Intake and Output for Last 24 Hours 05/17/19 05/18/19 05/19/19 23:59 23:59 23:59 Intake Total 2970 / 2970 2405 / 2405 240 / 240 Output Total 1850 / 1850 1125 / 1125 200 / 200 Balance 1120 / 1120 1280 / 1280 40 / 40 Microbiology Past 72 Hours 05/15/19 12:55 Blood Culture (Wb) - Left Forearm Blood Culture - Preliminary Coag Negative Staph 05/15/19 11:40 Blood Culture (Wb) - Right Forearm Blood Culture - Preliminary No growth in 48 hours. 05/15/19 13:06 Urine, Clean Catch Urine Culture - Final Staphylococcus haemolyticus 05/15/19 20:25 Mucosa - Nose Respiratory Panel (PCR) - Final Disposition: Assisted facility Minutes spent on discharge:: 27 Patient Condition:: Stable Meaningful Use Info Meaningful Use Diagnoses (Choose all that apply): None applicable Code Visit Inpatient E&M: 86428 Disch Hosp
--- NOTE | 2019-05-19 09:42 | PHA.DC.MR ---
Pharmacy Service has performed discharge medication reconciliation for this patient upon transfer to [facility]. The patient's discharge medication list was reviewed for discrepancies and discrepancies were resolved. Home Medications Albuterol Aerosols [Ventolin Aerosols] 2.5 mg INHALATION Q2H PRN PRN #1 vial.neb. 05/19/19 Doxycycline 100 mg PO BID cap 05/19/19 Ipratropium/Albuterol Sulfate [Duoneb] 3 ml INHALATION Q4HWA.RT ampul.sydni 05/19/19 Prednisone See Taper PO DAILY #30 tab 05/19/19
[2019-05-19] MEDS: predniSONE 10 MG Tablet 40 MG PO (09:52)
[2019-05-19] MEDS: guaiFENesin 1,200 MG Tablet 1200 MG PO (09:53)
[2019-05-19] MEDS: Doxycycline 100 MG CAPSULE PO (09:53)
[2019-05-19] MEDS: Enoxaparin 40 MG/0.4 ML Syringe SC (09:53)
[2019-05-19] MEDS: Menthol/Lanolin/Calamine/Znox 113 GM Tube 1 APPLIC TOPICAL (09:53)
[2019-05-19 10:00] VITALS: BP 138/81; PULSE 79; RESP 18; TEMP 36.9; O2SAT 96
--- NOTE | 2019-05-19 12:54 | CASEMGMT ---
Patient is ready for discharge to [facility]. SONAL faxed orders to [facility]. SONAL called [facility] and arranged for patient to get picked up at 1015 via [employer] van. SONAL completed a convalescent on [facility]. SONAL notified RN, PLATE SHEAR OPERATOR, patient care secretary, and left a message for Genevieve at [facility]. SONAL also called patient's daughter, who is the only personal banking representative listed on patient's demographics sheet. She did not answer so SONAL left a vm letting her know patient was going to [facility] today for rehab. Plan: d/c to [facility] under skilled level of care on a convalescent stay. [facility] transported patient via [employer] van. Zahra RODRIGUEZ MSW
== END 2019-05-19 10:45 | disposition skilled nursing facility (03) | DRG 191 ==
LOC: ED 15:18 → PCU 15:32
PROVIDERS: Internal Medicine; Nurse Practitioner Family; Admitting Provider Student in an Organized Health Care Education/Training Program; Emergency Provider Emergency Medicine; Family Provider Family Medicine; PCP Family Medicine; Referring Provider Student in an Organized Health Care Education/Training Program; Visit Provider Hospitalist
DX: J44.1 Chronic obstructive pulmonary disease with (acute) exacerbation (principal); E87.1 Hypo-osmolality and hyponatremia; R78.81 Bacteremia; I48.20 Chronic atrial fibrillation, unspecified; N30.00 Acute cystitis without hematuria; I10 Essential (primary) hypertension; R25.1 Tremor, unspecified; F17.210 Nicotine dependence, cigarettes, uncomplicated; R06.89 Other abnormalities of breathing; R09.02 Hypoxemia; F10.10 Alcohol abuse, uncomplicated; R62.7 Adult failure to thrive; R53.81 Other malaise; B95.7 Other staphylococcus as the cause of diseases classified elsewhere; E03.9 Hypothyroidism, unspecified
CPT/HCPCS: 36415; 71045; 80048; 80053; 80202; 81001; 83605; 85025; 85610; 85730; 87040; 87077; 87086; 87088; 87186; 87449; 87633; 92526; 92610; 93005; 94640; 94667; 94668; 97110; 97162; 97530; 99251; 99285; J7030; J7050; A4216; G0463

== ENCOUNTER 2020-05-01 23:33 | Inpatient (IN) | payer MEDICARE, SELFPAY ==
[2019-05-15 16:04] VITALS: BMI 22.1
[2020-05-01 23:34] VITALS: BP 138/80; PULSE 73; RESP 32; TEMP 36.5; O2SAT 96; BMI 27.5
[2020-05-01 23:38] VITALS: BP 138/80; PULSE 71; RESP 35; O2SAT 96
--- NOTE | 2020-05-01 23:51 | EKG12_ITS ---
Test Reason : CP Blood Pressure : / mmHG Vent. Rate : 075 BPM Atrial Rate : 073 BPM P-R Int : 000 ms QRS Dur : 078 ms QT Int : 402 ms P-R-T Axes : 000 -25 028 degrees QTc Int : 448 ms Sinus Rhythm Inferior infarct , age undetermined Abnormal ECG Confirmed by LEVI CORMIER, JEREMIAS ([id number]), senior editor MIMA HARLEY ([id number]) on 05/05/2020 10:49:50 AM Referred By: SAMARA Confirmed By:CONSTANCE SIMS MD
--- NOTE | 2020-05-01 23:51 | RAD_ITS ---
STUDY: X-RAY CHEST REASON FOR EXAM: Male, 85 years old. Shortness of breath TECHNIQUE: Single AP portable view of the chest. COMPARISON: May 15, 2019 chest x-ray FINDINGS: Since prior study there is a interval development of a patchy opacity within the right lower lobe. A portion of which are appears to be nodular possibly measuring up to 1.4 cm. There is subtle focal density within the left lower lobe behind the heart. There is a subtle suggestion of a nodular density in the right upper lobe measuring 6.8 mm. There is a persistent flattening blunted appearance of the right costophrenic angle. Subtle hazy opacities in the left chest may represent atelectasis and/or scarring. Normal size heart. Normal mediastinum and gen. Normal visualized pulmonary arteries. There is atherosclerotic calcification of the aortic arch with tortuosity. There are diffuse degenerative changes of the visualized thoracic spine. Normal visualized ribs, clavicles, and shoulders. There is no demonstrated abnormality of the visualized soft tissue structures of the upper abdomen. RAD/Chest 1 View (Portable) IMPRESSION: Interval patchy opacities right lower lobe portion of which may be nodular. Consider interval pneumonia. However, given the suggestion of a nodular component recommend consideration for follow up CT scan of the chest. Stable scarring in the right lung base. Electronically Signed: Erika Doan MD at 1:09 EDT Tel , Service support ,
[2020-05-01 23:52] VITALS: O2SAT 96
[2020-05-02] VITALS (47 sets, daily range): BP systolic 113–168; BP diastolic 58–117; PULSE 68–109; RESP 12–43; TEMP 36.3–37.3; O2SAT 93–100; BMI 25.3; BMI 25.5
[2020-05-02 00:19] LABS: Absolute Lymphocyte Count 1.85 X10^3/uL (0.83-4.51); Absolute Neutrophil Count 5.7 X10^3/uL (2.0-7.7); Basophil# 0.05 X10^3/uL; Basophil% 0.5 % (0-1); Eosinophil# 0.38 X10^3/uL; Eosinophils% 4.1 % (0-5); Hematocrit 31.2 % (40-54); Hemoglobin 10.2 g/dL (13.0-16.5); Lymphocyte # 1.85 X10^3/ul (4.0); Lymphocyte % 20.1 % (19-41); Mean Corp Hgb Conc 32.7 g/dL (32-36); Mean Corpuscular Volume 97.8 fL (80-94); Mean Platelet Vol. 8.9 fl (6.2-12.0); Monocyte# 1.24 X10^3/uL; Monocyte% 13.5 % (0-10); NRBC Flagged by Analyzer 0 % (0-5); Neutrophil # 5.65 X10^3/uL (2.7-7.7); Neutrophil % 61.4 % (47-70); Platelet Count 253 K/mm3 (150-450); RBC Distribution Width CV 15.2 % (11.6-14.6); RBC Distribution Width SD 54.8 fl (35.1-43.9); Red Blood Count 3.19 M/mm3 (4.6-6.2); White Blood Count 9.2 K/mm3 (4.4-11.0)
--- NOTE | 2020-05-02 00:31 | ED.VISSUMM ---
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 He is very hard of hearing and a poor informant. He reports his shortness of breath and chest pain began today. Describes it as an aching pain that was bad at worst. He denies pain now. He states that he does not really have a cough. He denies fever or chills. He reports he is been nauseated and had a little bit of vomiting. He also complains of generalized weakness. Physical Examination: Vitals: 97.7, 138/80, 71, 35, 96% on 4 L nasal cannula which is his home O2. General: Well-nourished and well-developed. Head: Normocephalic atraumatic. Neck: Supple, no lymphadenopathy. No JVD. Nontender. Cardiovascular: Regular rate and rhythm. No murmurs. Respiratory: No respiratory distress. Clear to auscultation bilaterally. Poor air movement. Abdominal: Soft, nontender, nondistended, normal bowel sounds. No guarding, rebound, or peritoneal signs. Back: Nontender. Extremities: Nontender, 1+ pitting edema of his left lower extremity. Skin: Normal color, no rash. Neurologic: Alert and oriented ?3. Cranial nerves II through XII are intact. Normal strength and sensation. Psych: Normal affect. Test Results: EKG is read as an accelerated junctional rhythm. However, in my opinion is sinus at 75 with PVCs. Is unchanged from 2019. CBC shows an H&H 10.2 and 31.2, sats 14. Chem-7 shows sodium 127, chloride 92, creatinine 0.65, calcium of 8.1. Troponin is negative. D-dimer is negative. Lactic acid is 1.0. COVID-19 is pending. Clinical Impression(s) from Imaging Studies Chest X-Ray 05/01/20 23:51 IMPRESSION: Interval patchy opacities right lower lobe portion of which may be nodular. Consider interval pneumonia. However, given the suggestion of a nodular component recommend consideration for follow up CT scan of the chest. Stable scarring in the right lung base. Electronically Signed: Erika Doan MD at 1:09 EDT Tel , Service support , Emergency Department Course and Treatment: Patient is resting comfortably on his home O2. However, he does still appear dyspneic with even talking. He was given Rocephin and Zithromax IV. Treatment Plan: Patient was discussed with Dr. Reid. He will be admitted to the hospital for further evaluation and treatment. Disposition: Admitted in improved, but serious condition. Impression: 1. Pneumonia, community-acquired. 2. Hyponatremia. 3. Chronic respiratory failure on 4 L home O2. 4. COPD. This note was generated with [employer] software. It may contain incorrect words, spelling, and punctuation that were not noted in review of the chart prior to signing ED Disposition - Plan for ED Patient: Referrals: Brandon Hennessy MD [Primary Care Provider] -
[2020-05-02 00:32] LABS: Anion Gap 6 (5-15); BUN 12 mg/dL (7-18); BUN/Creat Ratio 18.6 RATIO (10-20); Calcium,Total 8.1 mg/dL (8.5-10.1); Chloride 92 mmol/L (98-107); Creatinine, Serum 0.65 mg/dL (0.70-1.30); EST Glomerular Filtration Rate 125 mL/min (>60); Est Glom Filt Rate - Afr Amer 151 mL/min (>60); Estimated Creatinine Clearance 55.76 ml/min; Glucose 87 mg/dL (74-106); Potassium 4.2 mmol/L (3.5-5.1); Sodium Level 127 mmol/L (136-145)
[2020-05-02 00:35] LABS: D-Dimer Quantitative (DVT/PE) 0.45 FEU/ug/m (0.27-0.49)
[2020-05-02] MEDS: Ceftriaxone 1 GM/50 ML BAG IV (01:09)
--- NOTE | 2020-05-02 02:25 | PCM.HP.STD ---
Problem List (1) Community acquired pneumonia Status: Acute Qualifiers: Laterality: right Lung location: lower lobe of lung Qualified Code(s): J18.9 - Pneumonia, unspecified organism (2) COPD exacerbation Status: Acute (3) Hypoxemia Status: Acute Comment: Acute on chronic (4) Anemia Status: Chronic Qualifiers: Anemia type: unspecified type Qualified Code(s): D64.9 - Anemia, unspecified (5) Tremor Status: Chronic (6) Hyponatremia Status: Chronic (7) Chronic alcohol abuse Status: Chronic (8) History of atrial fibrillation Status: Chronic (9) Tobacco dependence syndrome Status: Chronic (10) History of hypothyroidism Status: Chronic (11) Respiratory failure Status: Chronic Qualifiers: Chronicity: chronic Respiratory failure complication: hypoxia Qualified Code(s): J96.11 - Chronic respiratory failure with hypoxia (12) History of COPD Status: Chronic History of Present Illness Date of Admission: 05/02/20 Chief Complaint: Dyspnea, pleuritic chest pain The patient is an 85 y/o M w/ PMHx: Chronic atrial fibrillation, Chronic BL UE tremors, Chronic hyponatremia, Chronic normocytic anemia, Chronic COPD with chronic hypoxic respiratory failure (4L NC), PAF, HTN, HLD, Hypothyroidism, Tobacco use, Hypothyroidism, EtOH abuse who presents to the [facility] ED on 05/02/20 with history of worsening shortness of breath with pleuritic chest discomfort, worse with increased respiratory effort with no reported fevers or chills with nausea with occasional emesis and generalized weakness and malaise prompting eventual ED presentation. Work-up in the ED included T 97.7, heart rate 73, BP 138/80, respiratory rate 35, 96% on 6 L nasal cannula with evident shortness of breath and tachypnea present, CBC with WBC 9.2, hemoglobin 10.2, platelet 253 without market shift, d-dimer 0.45, BMP with sodium 127, chloride 92, BUN/creatinine 12/0.65, lactic acid 1.0, troponin less than 0.015, blood culture x2 pending per ED, COVID negative, EKG with sinus rhythm with PVCs unchanged from prior, chest x-ray with interval patchy opacities right lower lobe although possible nodular component, stable scarring right lung base. In the ED patient administered azithromycin as well as Rocephin. Past Medical History Past Medical History (Chronic Problems): Chronic Problems (Last Reviewed 08/07/19 @ 09:35 by Chica Aguirre) Anemia (Chronic) Tremor (Chronic) Hyponatremia (Chronic) Afib (Chronic) Chronic alcohol abuse (Chronic) History of atrial fibrillation (Chronic) Tobacco dependence syndrome (Chronic) History of hypothyroidism (Chronic) Respiratory failure (Chronic) History of COPD (Chronic) Medical History: Medical History (Last Reviewed 08/07/19 @ 09:35 by Chica Aguirre) Sepsis due to pneumonia (Acute) J18.9, A41.9 Community acquired pneumonia (Acute) J18.9 Hypoxemia (Acute) R09.02 UTI (urinary tract infection) (Acute) N39.0 Afib (Chronic) I48.91 Pneumococcal pneumonia (Acute) J13 Severe sepsis (Acute) A41.9, R65.20 Shortness of breath (Acute) R06.02 Chronic alcohol abuse (Chronic) F10.10 History of atrial fibrillation (Chronic) Z86.79 Tobacco dependence syndrome (Chronic) F17.200 History of hypothyroidism (Chronic) Z86.39 Respiratory failure (Acute) J96.90 COPD exacerbation (Chronic) J44.1 History of COPD (Chronic) Z87.09 Allergies No Known Allergies Allergy (Verified 05/01/20 23:34) Home Medications: Ambulatory Orders Medication Instructions Recorded Albuterol Aerosols [Ventolin 2.5 mg INHALATION Q2H PRN PRN #1 05/19/19 Aerosols] vial.neb. Doxycycline 100 mg PO BID cap 05/19/19 Ipratropium/Albuterol Sulfate 3 ml INHALATION Q4HWA.RT ampul.neb 05/19/19 [Duoneb] Prednisone See Taper PO DAILY #30 tab 05/19/19 Surgical History: cataract Psychiatric History: No pertinent psych hx Lives: Alone Smoking Status: Former smoker Tobacco Use: Cigarettes Alcohol: Heavy Drugs: None - *Family History Paternal History Items: - - Patient denies any market maternal or paternal family history including heart disease, diabetes, cancer. Maternal History Items: - - Patient denies any market maternal or paternal family history including heart disease, diabetes, cancer. Review of Systems Constitutional: Reports: Anorexia, Malaise, Weakness, Fatigue. Denies: Chills, Fever, Weight Change HEENT: Denies: Head Aches, Sinus Congestion, Sinus Drainage Cardiovascular: Reports: Chest Pain. Denies: Chest Pressure, Chest Tightness, Light Headedness, Orthopnea, Palpitations, Syncope Respiratory: Reports: Cough, Pleuritic Pain, Shortness of Breath, Shortness of breath at rest, Shortness of breath upon exertion. Denies: Sputum production, Wheezing Gastrointestinal: Reports: Nausea. Denies: Abdominal Pain, Vomiting Genitourinary: Denies: Dysuria Musculoskeletal: Reports: Joint Pain. Denies: Joint Tenderness Skin: Denies: Rash, Wounds Neurological: Denies: Numbness, Tingling, Focal weakness Psychiatric: Denies: Anxiety, Depression, Homicidal Ideations, Suicidal Ideations Hematologic/ Lymphatic: Reports: Anemia, Easy Bruising, Easy Bleeding VTE Information - Inpt Only VTE Present on Admission: No VTE Mechan Device Prophylaxis: SCD's VTE Pharm Prophylaxis ordered?: Yes Subjective: Patient seated upright in the ED bed, fatigued appearance, increased respiratory rate but significant mouth breathing evident and improves when distracted and talking with no distress noted at that time. Objective: Physical Examination: General: awake, alert, oriented to self, place and recent events but very hard of hearing, complicates examination, remains cooperative, seated upright in the ED bed, increased respiratory rate but when distracted and having discussion patient does calm and breathe more appropriately. Skin: normal color, turgor, no icterus, cyanosis. HEENT: AT/NC, EOMI, PERRLA, dry MM, notable mouth breathing, no carotid bruits or JVD noted. Lungs: Diminished breath sounds, greater bases, increased respiratory rate, improved when distracted, no obvious rales or rhonchi, no wheezing currently, decreased movement. Heart: Regular rate and rhythm; no gallop, rub audible. Abdomen: soft, NTTP, ND, normal BS, no HSM. Extremities: no cyanosis, clubbing, mild ankle edema present. Neurological: patient awake, alert, oriented as noted; cognitive function suspect baseline intact however complicated by hard of hearing status; pupils equally reactive to light and accomodation; cranial nerves grossly normal, moving all 4 extremities, no focal deficits, strength moderately to severely global decrease secondary to comorbidities and acute presentation. Psychiatric: affect appears fatigued, no acute evidence of depressive or anxiety feelings. - Physical Exam Vitals/I&O's: Vital Signs Temp Pulse Resp BP Pulse Ox 97.9 F 79 34 H 143/80 H 96 05/02/20 01:00 05/02/20 01:00 05/02/20 01:00 05/02/20 01:00 05/02/20 01:00 Oxygen Flow Rate (L/min) 6 Oxygen Delivery Method Nasal Cannula Weight: 191 lb 12.835 oz Body Mass Index (BMI) 27.5 Intake and Output for Last 24 Hours 04/30/20 05/01/20 05/02/20 23:59 23:59 23:59 Intake Total 50 / 50 Balance 50 / 50 Laboratory Results 05/01/20 23:50: WBC 9.2, RBC 3.19 L, Hgb 10.2 L, Hct 31.2 L, MCV 97.8 H, MCH 32.0, MCHC 32.7, RDW Std Deviation 54.8 H, RDW Coeff of Tera 15.2 H, Plt Count 253, MPV 8.9, Immature Gran % (Auto) 0.400, Neut % (Auto) 61.4, Lymph % (Auto) 20.1, [place] % (Auto) 13.5 H, Eos % (Auto) 4.1, Baso % (Auto) 0.5, Absolute Neuts (auto) 5.7, Absolute Lymphs (auto) 1.85, Nucleated RBC % 0 05/01/20 23:50: D-Dimer Quant (PE/DVT) 0.45 05/01/20 23:50: Sodium 127 L, Potassium 4.2, Chloride 92 L, Carbon Dioxide 29.0, Anion Gap 6, BUN 12, Creatinine 0.65 L, Estim Creat Clear Calc 55.76, Est GFR (MDRD) Af Amer 151, Est GFR (MDRD) Non-Af 125, BUN/Creatinine Ratio 18.6, Glucose 87, Calcium 8.1 L, Troponin I < 0.015 05/01/20 23:50: Lactic Acid 1.0 05/02/20 00:15: COVID-19 (STEFF) Pending Assessment/Plan All Active Problems (Last Reviewed 08/07/19 @ 09:35 by Chica Aguirre) Sepsis due to pneumonia (Acute) Community acquired pneumonia (Acute) Hypoxemia (Acute) UTI (urinary tract infection) (Acute) Pneumococcal pneumonia (Acute) Severe sepsis (Acute) Shortness of breath (Acute) COPD exacerbation (Acute) Fall at home (Resolved) Hyponatremia (Resolved) The patient is an 85 y/o M w/ PMHx: Chronic atrial fibrillation, Chronic BL UE tremors, Chronic hyponatremia, Chronic normocytic anemia, Chronic COPD with chronic hypoxic respiratory failure (4L NC), PAF, HTN, HLD, Hypothyroidism, Tobacco use, Hypothyroidism, EtOH abuse who presents to the [facility] ED on 05/02/20 with history of worsening shortness of breath with pleuritic chest discomfort, worse with increased respiratory effort with no reported fevers or chills with nausea with occasional emesis and generalized weakness and malaise. 1. Community Acquired Pneumonia with ? Acute on Chronic COPD exacerbation with Chronic Hypoxic Respiratory Failure: CXR w/ interval patchy opacities right lower lobe although possible nodular component, stable scarring right lung base, CBC on admission w/ WBC 9.2 without marked shift, COVID negative. Will admit to [facility] telemetry, maintain on oxygen with wean as tolerated to home oxygen supplementation, continue ATC duonebs, PRN albuterol, IV methylprednisolone, IV rocephin and azithromycin, HOB, IS parameters, obtain urine antigens, respiratory viral panel and sputum culture. Given nodular component will obtain CT chest especially given tobacco use history. Given findings on CXR will continue to closely monitor intake and request speech assessment. 2. Chronic hyponatremia: Admission Na 127, baseline 127-132 primarily, secondary to chronic EtOH abuse, judiciously hydrating given acute presentation, repeat BMP in AM. 3. EtOH Abuse: Will maintain on CIWA protocol, MVI, thiamine and folic acid. Mag and phos levels requested. CM consulted for substance abuse. Encouraged safe sobriety. 4. PAF: Not on any rate or rhythm agent, rate appropriate currently, likely poor anticoagulation candidate given EtOH abuse history, maintain on telemetry. 5. Hypertension: Currently not on regimen, BP fairly normal range in the ED, continue to monitor and add regimen if appropriate. 6. Hyperlipidemia: Not on regimen, defer to outpatient. 7. History of Hypothyrodism: Not on regimen, noted in history, will obtain TSH, FT4 levels. 8. Chronic normocytic anemia: Admission hemoglobin 10.2, baseline more recently 10-12, stable, trend. 9. Tobacco Abuse: Encouraged cessation, inpatient consultation per RT, NR if desired. 10. Chronic BL UE Tremors: Resting tremors, suspected secondary to EtOH abuse, chronic, unchanged. 11. DVT prophylaxis: SCDs, lovenox. Inpatient E&M: [id number] Init Hosp L3
[2020-05-02] MEDS: Albuterol 2.5 MG/3 ML VIAL.NEB. INHALATION (04:14)
[2020-05-02] MEDS: 0.9% Normal Saline 1,000 ML 100 ML IV ×2 (04:28→14:59)
[2020-05-02] MEDS: MethylPREDNISolone 125 MG/2 ML Vial IV (04:28)
[2020-05-02] MEDS: 0.9% Saline Lock 10 ML Syringe IV ×2 (04:28→14:10)
[2020-05-02 04:37] LABS: Magnesium 1.9 mg/dL (1.6-2.6)
[2020-05-02 04:42] LABS: Phosphorus 3.3 mg/dL (2.5-4.9); T4 Free Direct 1.11 ng/dL (0.76-1.46); Thyroid Stim Hormone (TSH) 2.12 uIU/mL (0.358-3.74)
[2020-05-02 04:49] LABS: Absolute Lymphocyte Count 0.79 X10^3/uL (0.83-4.51); Absolute Neutrophil Count 6.9 X10^3/uL (2.0-7.7); Basophil# 0.01 X10^3/uL; Basophil% 0.1 % (0-1); Eosinophil# 0.01 X10^3/uL; Eosinophils% 0.1 % (0-5); Hematocrit 32.8 % (40-54); Hemoglobin 10.8 g/dL (13.0-16.5); Lymphocyte # 0.79 X10^3/ul (4.0); Lymphocyte % 10.1 % (19-41); Mean Corp Hgb Conc 32.9 g/dL (32-36); Mean Corpuscular Volume 97.3 fL (80-94); Mean Platelet Vol. 8.9 fl (6.2-12.0); Monocyte# 0.12 X10^3/uL; Monocyte% 1.5 % (0-10); NRBC Flagged by Analyzer 0 % (0-5); Neutrophil # 6.87 X10^3/uL (2.7-7.7); Neutrophil % 87.6 % (47-70); Platelet Count 249 K/mm3 (150-450); RBC Distribution Width CV 15.2 % (11.6-14.6); RBC Distribution Width SD 54.4 fl (35.1-43.9); Red Blood Count 3.37 M/mm3 (4.6-6.2); White Blood Count 7.9 K/mm3 (4.4-11.0)
--- NOTE | 2020-05-02 05:01 | NURSING ---
Report called to ICU.
[2020-05-02 05:18] LABS: AST(SGOT) 13 U/L (15-37); Alanine Aminotransfer ALT/SGPT 20 U/L (16-61); Albumin, Serum 3.4 g/dL (3.2-5.0); Alkaline Phosphatase 63 U/L (45-117); Anion Gap 7 (5-15); BUN 11 mg/dL (7-18); Calcium,Total 8.5 mg/dL (8.5-10.1); Chloride 92 mmol/L (98-107); Creatinine, Serum 0.69 mg/dL (0.70-1.30); EST Glomerular Filtration Rate 116 mL/min (>60); Est Glom Filt Rate - Afr Amer 141 mL/min (>60); Estimated Creatinine Clearance 57.52 ml/min; Globulin 3.5 g/dL (2.2-4.2); Glucose 143 mg/dL (74-106); Potassium 4.2 mmol/L (3.5-5.1); Protein, Total 6.9 g/dL (6.4-8.2); Sodium Level 127 mmol/L (136-145)
--- NOTE | 2020-05-02 05:20 | NURSING ---
Transferred to ICU #1.
--- NOTE | 2020-05-02 05:34 | NURSING ---
Attempted to contact pt's daughter Cassandra but she does not have a mailbox set up on her cell phone and no one answered. ICU notified.
[2020-05-02 05:50] LABS: Allen Test Positive; Base Excess 3 mmol/L (-2 to +2); Bicarbonate 27.2 mmol/L (22-26); Blood Gas Specimen Type ART; FI02 35; O2 Delivery Device BiPAP; PO2 104 mmHG (75-100); SITE L Radial; SO2 98 % (95-99); Total Carbon Dioxide 29 mmol/L; pH 7.43 (7.35-7.45)
--- NOTE | 2020-05-02 06:04 | PCM.CON.CC ---
Reason for Consult Date of Consultation: 05/02/20 Reason for Consultation: Respiratory failure, COPD exacerbation, questionable pneumonia History of Present Illness: The patient is an 85-year-old male, with a history as outlined below, who presented to the emergency department on May 02 with reports of worsening shortness of breath. The patient has an apparent history of COPD of unknown severity along with chronic hypoxemic respiratory failure with a baseline 4 L/min oxygen requirement. He does report a history of tobacco dependency, apparently in remission along with chronic alcohol dependency. The patient is somewhat of a poor historian, so history is somewhat limited. He does appear to have Ventolin and DuoNeb's prescribed to him in his home environment. However, he does not currently follow with a pulmonary provider, nor are there any pulmonary function studies available in our system. On presentation to the emergency department, the patient was noted to be afebrile and hemodynamically stable. He was notably tachypneic and requiring 6 L/min via nasal cannula to maintain appropriate oxygen saturations. Laboratory evaluation revealed no evidence of leukocytosis. D-dimer was within normal limits. Chemistry profile was notable for a sodium of 127, chloride of 92, and normal creatinine. Lactate was within normal limits. Troponin was negative. TSH and free T4 were within normal limits. Coronavirus PCR was negative. Chest x-ray revealed a right lower lobe nodular appearing airspace opacity. The patient was placed on empiric antimicrobials and subsequently admitted to the medical intensive care unit for further management. Past Medical History Past Medical History (Chronic Problems): Chronic Problems (Last Reviewed 08/07/19 @ 09:35 by Chica Aguirre) Anemia (Chronic) Tremor (Chronic) Hyponatremia (Chronic) Afib (Chronic) Chronic alcohol abuse (Chronic) History of atrial fibrillation (Chronic) Tobacco dependence syndrome (Chronic) History of hypothyroidism (Chronic) Respiratory failure (Chronic) History of COPD (Chronic) Medical History: Medical History (Last Reviewed 08/07/19 @ 09:35 by Chica Timothy) Sepsis due to pneumonia (Acute) J18.9, A41.9 Community acquired pneumonia (Acute) J18.9 Hypoxemia (Acute) R09.02 Acute on chronic UTI (urinary tract infection) (Acute) N39.0 Afib (Chronic) I48.91 Pneumococcal pneumonia (Acute) J13 Severe sepsis (Acute) A41.9, R65.20 Shortness of breath (Acute) R06.02 Chronic alcohol abuse (Chronic) F10.10 History of atrial fibrillation (Chronic) Z86.79 Tobacco dependence syndrome (Chronic) F17.200 History of hypothyroidism (Chronic) Z86.39 Respiratory failure (Chronic) J96.90 COPD exacerbation (Acute) J44.1 History of COPD (Chronic) Z87.09 Allergies No Known Allergies Allergy (Verified 05/01/20 23:34) Home Medications: Ambulatory Orders Medication Instructions Recorded Albuterol Aerosols [Ventolin 2.5 mg INHALATION Q2H PRN PRN #1 05/19/19 Aerosols] vial.neb. Doxycycline 100 mg PO BID cap 05/19/19 Ipratropium/Albuterol Sulfate 3 ml INHALATION Q4HWA.RT ampul.neb 05/19/19 [Duoneb] Prednisone See Taper PO DAILY #30 tab 05/19/19 Surgical History: cataract Psychiatric History: No pertinent psych hx Lives: Alone Smoking Status: Former smoker Tobacco Use: Cigarettes Alcohol: Heavy Drugs: None - *Family History Paternal History Items: - - Patient denies any market maternal or paternal family history including heart disease, diabetes, cancer. Maternal History Items: - - Patient denies any market maternal or paternal family history including heart disease, diabetes, cancer. Review of Systems Constitutional: Denies: Chills, Fever Eyes: Denies: Blurred vision, Double vision HEENT: Reports: Difficulty Hearing Cardiovascular: Denies: Chest Pain, Palpitations Respiratory: Reports: Cough, Shortness of Breath Gastrointestinal: Denies: Abdominal Pain, Nausea, Vomiting Genitourinary: Denies: Dysuria Musculoskeletal: Denies: Joint Pain, Joint Tenderness Skin: Denies: Rash, Wounds Neurological: Denies: Numbness, Tingling, Focal weakness Psychiatric: Denies: Anxiety, Depression, Homicidal Ideations, Suicidal Ideations Hematologic/ Lymphatic: Reports: Anemia Objective: The patient's most recent lab work, culture data and imaging studies have all been personally reviewed. Surface echocardiogram from August 2017 revealed normal LV size with an ejection fraction of 65% and stage I diastolic dysfunction. Right ventricular systolic pressure was estimated to be 31 mmHg. Strep and urine Legionella antigens are pending. Respiratory viral panel is pending. Blood and sputum cultures are pending. - Physical Exam Vitals/I&O's: Vital Signs Temp Pulse Resp BP Pulse Ox 97.3 F L 76 38 H 168/86 H 100 05/02/20 04:05 05/02/20 05:37 05/02/20 04:16 05/02/20 04:05 05/02/20 04:15 Oxygen Flow Rate (L/min) 6 Oxygen Delivery Method Nasal Cannula Weight: 182 lb 15.739 oz Body Mass Index (BMI) 25.3 Intake and Output for Last 24 Hours 04/30/20 05/01/20 05/02/20 23:59 23:59 23:59 Intake Total / Balance / General: Alert, Cooperative, - - Hard of hearing HEENT: Atraumatic, PERRLA, Normocephalic Oral: No Gingival or Mucosal Lesions/ Ulcerations, - - Edentulous Neck: Supple, No Nodes, Trachea Midline Lungs: Tachypneic, - - Globally diminished air movement bilaterally without appreciable wheezes, rales or rhonchi. Cardiovascular: Regular rate, Regular Rhythm Abdomen: Bowel Sounds Present, Soft, Non Tender Extremities: No clubbing, No cyanosis, Edema Skin: No breakdown Musculoskeletal: No Tenderness to Palpation of Joints or Extremities Lymphatic: No Cervical, Supraclavicular, or Inguinal Adenopathy Neurological: Cranial nerves II-XII grossly intact, Neuro grossly intact Psych/Mental Status: Normal Affect, Appropriate Labs (Last 48 Hours) 05/01/20 05/01/20 05/01/20 23:50 23:50 23:50 WBC 9.2 RBC 3.19 L Hgb 10.2 L Hct 31.2 L MCV 97.8 H MCH 32.0 MCHC 32.7 RDW Std Deviation 54.8 H RDW Coeff of Tera 15.2 H Plt Count 253 MPV 8.9 Immature Gran % (Auto) 0.400 Neut % (Auto) 61.4 Lymph % (Auto) 20.1 [place] % (Auto) 13.5 H Eos % (Auto) 4.1 Baso % (Auto) 0.5 Absolute Neuts (auto) 5.7 Absolute Lymphs (auto) 1.85 Nucleated RBC % 0 D-Dimer Quant (PE/DVT) 0.45 Specimen Type Sample Site pH Bicarbonate Actual Total CO2 Base Excess O2 Saturation O2 % ABG pCO2 ABG pO2 Joe Test Respiration Rate O2 Delivery Device POC PEEP Sodium 127 L Potassium 4.2 Chloride 92 L Carbon Dioxide 29.0 Anion Gap 6 BUN 12 Creatinine 0.65 L Estim Creat Clear Calc 55.76 Est GFR (MDRD) Af Amer 151 Est GFR (MDRD) Non-Af 125 BUN/Creatinine Ratio 18.6 Glucose 87 Lactic Acid Calcium 8.1 L Phosphorus Magnesium Total Bilirubin AST ALT Alkaline Phosphatase Troponin I < 0.015 Total Protein Albumin Globulin Albumin/Globulin Ratio Procalcitonin TSH Free T4 Ethyl Alcohol COVID-19 ([facility]) 05/01/20 05/01/20 05/01/20 23:50 23:50 23:50 WBC RBC Hgb Hct MCV MCH MCHC RDW Std Deviation RDW Coeff of Tera Plt Count MPV Immature Gran % (Auto) Neut % (Auto) Lymph % (Auto) [place] % (Auto) Eos % (Auto) Baso % (Auto) Absolute Neuts (auto) Absolute Lymphs (auto) Nucleated RBC % D-Dimer Quant (PE/DVT) Specimen Type Sample Site pH Bicarbonate Actual Total CO2 Base Excess O2 Saturation O2 % ABG pCO2 ABG pO2 Joe Test Respiration Rate O2 Delivery Device POC PEEP Sodium Potassium Chloride Carbon Dioxide Anion Gap BUN Creatinine Estim Creat Clear Calc Est GFR (MDRD) Af Amer Est GFR (MDRD) Non-Af BUN/Creatinine Ratio Glucose Lactic Acid 1.0 Calcium Phosphorus 3.3 Magnesium 1.9 Total Bilirubin AST ALT Alkaline Phosphatase Troponin I Total Protein Albumin Globulin Albumin/Globulin Ratio Procalcitonin TSH 2.12 Free T4 1.11 Ethyl Alcohol COVID-19 ([facility]) 05/02/20 05/02/20 05/02/20 00:15 04:30 04:30 WBC RBC Hgb Hct MCV MCH MCHC RDW Std Deviation RDW Coeff of Tera Plt Count MPV Immature Gran % (Auto) Neut % (Auto) Lymph % (Auto) [place] % (Auto) Eos % (Auto) Baso % (Auto) Absolute Neuts (auto) Absolute Lymphs (auto) Nucleated RBC % D-Dimer Quant (PE/DVT) Specimen Type Sample Site pH Bicarbonate Actual Total CO2 Base Excess O2 Saturation O2 % ABG pCO2 ABG pO2 Joe Test Respiration Rate O2 Delivery Device POC PEEP Sodium Potassium Chloride Carbon Dioxide Anion Gap BUN Creatinine Estim Creat Clear Calc Est GFR (MDRD) Af Amer Est GFR (MDRD) Non-Af BUN/Creatinine Ratio Glucose Lactic Acid Calcium Phosphorus Magnesium Total Bilirubin AST ALT Alkaline Phosphatase Troponin I Total Protein Albumin Globulin Albumin/Globulin Ratio Procalcitonin Pending TSH Free T4 Ethyl Alcohol 6.0 COVID-19 ([facility]) Not Detected 05/02/20 05/02/20 05/02/20 04:30 04:30 05:45 WBC 7.9 RBC 3.37 L Hgb 10.8 L Hct 32.8 L MCV 97.3 H MCH 32.0 MCHC 32.9 RDW Std Deviation 54.4 H RDW Coeff of Tera 15.2 H Plt Count 249 MPV 8.9 Immature Gran % (Auto) 0.600 Neut % (Auto) 87.6 H Lymph % (Auto) 10.1 L [place] % (Auto) 1.5 Eos % (Auto) 0.1 Baso % (Auto) 0.1 Absolute Neuts (auto) 6.9 Absolute Lymphs (auto) 0.79 L Nucleated RBC % 0 D-Dimer Quant (PE/DVT) Specimen Type ART Sample Site L Radial pH 7.43 Bicarbonate Actual 27.2 H Total CO2 29 Base Excess 3 H O2 Saturation 98 O2 % 35 ABG pCO2 41.0 ABG pO2 104 H Joe Test Positive Respiration Rate 12.0000 O2 Delivery Device BiPAP POC PEEP 10.0000 Sodium 127 L Potassium 4.2 Chloride 92 L Carbon Dioxide 28.0 Anion Gap 7 BUN 11 Creatinine 0.69 L Estim Creat Clear Calc 57.52 Est GFR (MDRD) Af Amer 141 Est GFR (MDRD) Non-Af 116 BUN/Creatinine Ratio 16.0 Glucose 143 H Lactic Acid Calcium 8.5 Phosphorus Magnesium Total Bilirubin 0.40 AST 13 L ALT 20 Alkaline Phosphatase 63 Troponin I < 0.015 Total Protein 6.9 Albumin 3.4 Globulin 3.5 Albumin/Globulin Ratio 1.0 Procalcitonin TSH Free T4 Ethyl Alcohol COVID-19 ([facility]) Clinical Impression(s) from Imaging Studies Chest X-Ray 05/01/20 23:51 IMPRESSION: Interval patchy opacities right lower lobe portion of which may be nodular. Consider interval pneumonia. However, given the suggestion of a nodular component recommend consideration for follow up CT scan of the chest. Stable scarring in the right lung base. Electronically Signed: Erika Doan MD at 1:09 EDT Tel , Service support , Current Medications Acetaminophen (Tylenol) 650 mg PO Q6H PRN PRN PRN Reason: Pain Score 1-10/Temp > 100.7 F Al Hydroxide/Mg Hydroxide (Mylanta Ii) 30 ml PO Q6H PRN PRN PRN Reason: Gastric Burning Albuterol Sulfate (Ventolin Aerosols) 2.5 mg INHALATION Q2H PRN PRN PRN Reason: Dyspnea, wheezing Last Admin: 05/02/20 04:14 Dose: 2.5 mg Documented by: Albuterol/Ipratropium (Duoneb) 3 ml INHALATION Q4HWA.RT RYANN Aspirin (Aspirin, Baby) 81 mg PO DAILY@0800 RYANN Enoxaparin Sodium (Lovenox) 40 mg SC DAILY RYANN Famotidine (Pepcid) 20 mg PO BID RYANN Folic Acid (Folic Acid) 1 mg PO DAILY@0800 [facility] Stop: 05/04/20 08:01 Guaifenesin (Robitussin) 20 ml PO Q4H PRN PRN PRN Reason: COUGH Azithromycin 500 mg/ Dextrose 255 mls @ 250 mls/hr IV Q24H RYANN Ceftriaxone Sodium 2 gm/ (Sodium Chloride) 50 mls @ 100 mls/hr IV Q24H RYANN Sodium Chloride () 1,000 mls @ 100 mls/hr IV .Q10H RYANN Last Admin: 05/02/20 04:28 Dose: 100 mls/hr Documented by: Sodium Chloride () 250 mls @ 15 mls/hr IV .[id number] PRN PRN Reason: Saline Flush Lorazepam (Ativan) 2 mg PO Q2H PRN PRN; Protocol PRN Reason: CIWA score > 8 but <15 Lorazepam (Ativan) 2 mg PO UD PRN; Protocol PRN Reason: CIWA score >/=15. Lorazepam (Ativan) 2 mg IV Q2H PRN PRN; Protocol PRN Reason: CIWA score > 8 but <15 Lorazepam (Ativan) 2 mg IV UD PRN; Protocol PRN Reason: CIWA score >/=15. Magnesium Hydroxide (Milk Of Magnesia) 30 ml PO DAILY PRN PRN PRN Reason: Constipation Melatonin (Melatonin) 3 mg PO QHS PRN PRN PRN Reason: INSOMNIA Methylprednisolone (Solu-Medrol) 40 mg IV Q8 RYANN Morphine Sulfate () 2 mg IV Q3H PRN PRN PRN Reason: Pain Score 6-10 Multivitamins/Minerals (Multivitamin With Minerals (Bkc)) 1 tablet PO DAILYCM [facility] Nitroglycerin (Nitrostat) 0.4 mg SUBLINGUAL Q5M PRN PRN Reason: CARDIAC/CHEST PAIN Ondansetron HCl (Zofran) 4 mg IV Q8H PRN PRN PRN Reason: NAUSEA/VOMITING Oxycodone HCl (Oxyir) 5 mg PO Q4H PRN PRN PRN Reason: Pain Score 4-5 Prochlorperazine Edisylate (Compazine Iv) 5 mg IV Q4H PRN PRN PRN Reason: Breakthrough nausea/vomiting Psyllium Hydrophilic Mucilloid (Metamucil) 1 packet PO DAILY PRN PRN PRN Reason: Constipation Senna/Docusate Sodium (Senokot-S, Samara-Colace) 2 tablet PO BID PRN PRN PRN Reason: Constipation Sodium Chloride () 10 - 40 ml IV UD PRN PRN Reason: SALINE FLUSH Last Admin: 05/02/20 04:28 Dose: 10 ml Documented by: Thiamine HCl (Vitamin B1) 100 mg PO BIDCM RYANN Stop: 05/04/20 17:01 Throat Lozenges (Cepacol Sore Throat Lozenge) 1 lozenge MUCOUS MEM Q2H PRN PRN PRN Reason: SORE THROAT Assessment/Plan RECOMMENDATIONS: 1. Continue BiPAP therapy and wean as tolerated. Goal to maintain oxygen saturations at or above 90%. 2. Continue scheduled bronchodilator therapy along with IV steroids. 3. Continue empiric antimicrobials, pending infectious work-up. 4. Obtain CT chest to further characterize the right lower lobe changes noted on x-ray. 5. Gentle IV fluid hydration, given n.p.o. status. 6. [facility] protocol. Monitor for any signs of alcohol withdrawal. IMPRESSIONS: 1. Acute on chronic hypoxemic respiratory failure The patient has an apparent history of COPD of unknown severity, having never been evaluated by special education resource room teacher or having completed pulmonary function studies. He does have an apparent baseline supplemental oxygen requirement of 4 L/min. His x-rays certainly concerning for a potential right lower lobe pneumonia. Therefore, it is reasonable to continue antimicrobials, bronchodilators and IV steroids for now. Given that the infiltrate on x-ray has a nodular component, will obtain CT chest for further characterization. In the interim, the patient will be continued on BiPAP therapy as tolerated, with plans to wean to maintain saturations at or above 90%. 2. Hyponatremia I suspect that this is likely secondary to chronic alcohol dependency. Gentle IV fluid hydration is currently ordered. Continue to monitor electrolytes closely. 3. Chronic alcohol dependency The patient has been started on CIWA protocol, with plans to monitor for any signs of alcohol withdrawal. Continue thiamine, folate and multivitamin. 4. History of tobacco dependency/paroxysmal atrial fibrillation/hypertension/hyperlipidemia/anemia Complicates care, management, recovery and prognosis. Continue home medications as indicated. Physical therapy will need to evaluate the patient. This note was generated with [email or web address] dictation software. It may contain incorrect words, spelling, and punctuation that were not noted in checking the note before signing. Inpatient E&M: 49937 Init Hosp L3
[2020-05-02 06:58] LABS: Procalcitonin < 0.04 ng/mL (0.00-0.09)
[2020-05-02] MEDS: Ipratropium/Albuterol Sulfate 3 ML AMPUL.NEB INHALATION ×4 (07:05→19:08)
--- NOTE | 2020-05-02 07:42 | PN_ITS ---
Reason for Visit: Follow-up for respiratory failure, COPD exacerbation and possible pneumonia Objective: Patient was admitted with shortness of breath, tachypnea, increased hypoxia than baseline; 6 L. Patient baseline home oxygen requirement is 4 L. Chest x-ray shows right lower lobe nodular opacity, reported measuring up to 1.4 cm/infiltrate, more prominent previous chest x-ray of April 2019. Chest CT scan of March 2018 mention 4 mm small calcified nodule in right middle lobe, small spiculated density in anterior left upper lobe 3 x 2 mm and other nodules History is limited as patient on BiPAP, poor historian. He admitted that he drinks 4 beers every few days. He quit smoking about 4 months ago Physical exam General: Awake, on BiPAP. HEENT: Atraumatic, PERRLA, EOMI, Normocephalic Oral: No Gingival or Mucosal Lesions/ Ulcerations Neck: Supple, No JVD, Negative Carotid Bruits Lungs: Air entry diminished in bilateral lung. [place] rhonchi present. On BiPAP. Cardiovascular: Irregular rate and rhythm, Normal S1, Normal S2, No murmurs Abdomen: Bowel Sounds Present, Soft, Non Tender, mild gaseous upper abdominal distention : No renal angle tenderness. No suprapubic tenderness. Weber catheter present. Clear yellowish urine Extremities: No edema, Capillary Refill Less than 3 Seconds Skin: No rashes, No breakdown Musculoskeletal: No Tenderness to Palpation of Joints or Extremities Neurological: Cranial nerves II-XII grossly intact, Deep Tendon Reflexes 2+/4 and Symmetrical, sometimes shaking of bilateral upper extremities Psych/Mental Status: Normal Affect, Appropriate. Vitals/I&O's: Vital Signs Temp Pulse Resp BP Pulse Ox 98.6 F 74 14 154/81 H 100 05/02/20 07:00 05/02/20 07:28 05/02/20 07:00 05/02/20 07:00 05/02/20 07:00 Oxygen Flow Rate (L/min) 6 Oxygen Delivery Method Bi-pap Weight: 182 lb 15.739 oz Body Mass Index (BMI) 25.3 Intake and Output for Last 24 Hours 04/30/20 05/01/20 05/02/20 23:59 23:59 23:59 Intake Total 458.33 / 458.33 Output Total 400 / 400 Balance 58.33 / 58.33 Microbiology Past 72 Hours 05/02/20 05:30 Urine Catheter - Catheter Streptococcus pneumoniae Antigen (M - Final 05/02/20 05:30 Urine Catheter - Catheter Legionella Antigen - Final Laboratory Results 05/01/20 23:50: WBC 9.2, RBC 3.19 L, Hgb 10.2 L, Hct 31.2 L, MCV 97.8 H, MCH 32.0, MCHC 32.7, RDW Std Deviation 54.8 H, RDW Coeff of Tera 15.2 H, Plt Count 253, MPV 8.9, Immature Gran % (Auto) 0.400, Neut % (Auto) 61.4, Lymph % (Auto) 20.1, [place] % (Auto) 13.5 H, Eos % (Auto) 4.1, Baso % (Auto) 0.5, Absolute Neuts (auto) 5.7, Absolute Lymphs (auto) 1.85, Nucleated RBC % 0 05/01/20 23:50: D-Dimer Quant (PE/DVT) 0.45 05/01/20 23:50: Sodium 127 L, Potassium 4.2, Chloride 92 L, Carbon Dioxide 29.0, Anion Gap 6, BUN 12, Creatinine 0.65 L, Estim Creat Clear Calc 55.76, Est GFR (MDRD) Af Amer 151, Est GFR (MDRD) Non-Af 125, BUN/Creatinine Ratio 18.6, Glucose 87, Calcium 8.1 L, Troponin I < 0.015 05/01/20 23:50: Lactic Acid 1.0 05/01/20 23:50: Magnesium 1.9 05/01/20 23:50: Phosphorus 3.3, TSH 2.12, Free T4 1.11 05/02/20 00:15: COVID-19 (STEFF) Not Detected 05/02/20 04:30: Ethyl Alcohol 6.0 05/02/20 04:30: Procalcitonin < 0.04 05/02/20 04:30: WBC 7.9, RBC 3.37 L, Hgb 10.8 L, Hct 32.8 L, MCV 97.3 H, MCH 32.0, MCHC 32.9, RDW Std Deviation 54.4 H, RDW Coeff of Tera 15.2 H, Plt Count 249, MPV 8.9, Immature Gran % (Auto) 0.600, Neut % (Auto) 87.6 H, Lymph % (Auto) 10.1 L, [place] % (Auto) 1.5, Eos % (Auto) 0.1, Baso % (Auto) 0.1, Absolute Neuts (auto) 6.9, Absolute Lymphs (auto) 0.79 L, Nucleated RBC % 0 05/02/20 04:30: Sodium 127 L, Potassium 4.2, Chloride 92 L, Carbon Dioxide 28.0, Anion Gap 7, BUN 11, Creatinine 0.69 L, Estim Creat Clear Calc 57.52, Est GFR (MDRD) Af Amer 141, Est GFR (MDRD) Non-Af 116, BUN/Creatinine Ratio 16.0, Glucose 143 H, Calcium 8.5, Total Bilirubin 0.40, AST 13 L, ALT 20, Alkaline Phosphatase 63, Troponin I < 0.015, Total Protein 6.9, Albumin 3.4, Globulin 3.5, Albumin/Globulin Ratio 1.0 05/02/20 05:45: Specimen Type ART, Sample Site L Radial, pH 7.43, Bicarbonate Actual 27.2 H, Total CO2 29, Base Excess 3 H, O2 Saturation 98, O2 % 35, ABG pCO2 41.0, ABG pO2 104 H, Joe Test Positive, Respiration Rate 12.0000, O2 Delivery Device BiPAP, POC PEEP 10.0000 Current Medications Acetaminophen (Tylenol) 650 mg PO Q6H PRN PRN PRN Reason: Pain Score 1-10/Temp > 100.7 F Al Hydroxide/Mg Hydroxide (Mylanta Ii) 30 ml PO Q6H PRN PRN PRN Reason: Gastric Burning Albuterol Sulfate (Ventolin Aerosols) 2.5 mg INHALATION Q2H PRN PRN PRN Reason: Dyspnea, wheezing Last Admin: 05/02/20 04:14 Dose: 2.5 mg Documented by: Albuterol/Ipratropium (Duoneb) 3 ml INHALATION Q4HWA.RT RYANN Last Admin: 05/02/20 07:05 Dose: 3 ml Documented by: Aspirin (Aspirin, Baby) 81 mg PO DAILY@0800 [facility] Enoxaparin Sodium (Lovenox) 40 mg SC DAILY [facility] Famotidine (Pepcid) 20 mg PO BID [facility] Folic Acid (Folic Acid) 1 mg PO DAILY@0800 [facility] Stop: 05/04/20 08:01 Guaifenesin (Robitussin) 20 ml PO Q4H PRN PRN PRN Reason: COUGH Azithromycin 500 mg/ Dextrose 255 mls @ 250 mls/hr IV Q24H [facility] Ceftriaxone Sodium 2 gm/ (Sodium Chloride) 50 mls @ 100 mls/hr IV Q24H [facility] Sodium Chloride () 1,000 mls @ 100 mls/hr IV .Q10H [facility] Last Infusion: 05/02/20 06:00 Dose: 100 mls/hr Documented by: Sodium Chloride () 250 mls @ 15 mls/hr IV .[id number] PRN PRN Reason: Saline Flush Lorazepam (Ativan) 2 mg PO Q2H PRN PRN; Protocol PRN Reason: CIWA score > 8 but <15 Lorazepam (Ativan) 2 mg PO UD PRN; Protocol PRN Reason: CIWA score >/=15. Lorazepam (Ativan) 2 mg IV Q2H PRN PRN; Protocol PRN Reason: CIWA score > 8 but <15 Lorazepam (Ativan) 2 mg IV UD PRN; Protocol PRN Reason: CIWA score >/=15. Magnesium Hydroxide (Milk Of Magnesia) 30 ml PO DAILY PRN PRN PRN Reason: Constipation Melatonin (Melatonin) 3 mg PO QHS PRN PRN PRN Reason: INSOMNIA Methylprednisolone (Solu-Medrol) 40 mg IV Q8 [facility] Morphine Sulfate () 2 mg IV Q3H PRN PRN PRN Reason: Pain Score 6-10 Multivitamins/Minerals (Multivitamin With Minerals (Bkc)) 1 tablet [facility] Nitroglycerin (Nitrostat) 0.4 mg SUBLINGUAL Q5M PRN PRN Reason: CARDIAC/CHEST PAIN Ondansetron HCl (Zofran) 4 mg IV Q8H PRN PRN PRN Reason: NAUSEA/VOMITING Oxycodone HCl (Oxyir) 5 mg PO Q4H PRN PRN PRN Reason: Pain Score 4-5 Prochlorperazine Edisylate (Compazine Iv) 5 mg IV Q4H PRN PRN PRN Reason: Breakthrough nausea/vomiting Psyllium Hydrophilic Mucilloid (Metamucil) 1 packet PO DAILY PRN PRN PRN Reason: Constipation Senna/Docusate Sodium (Senokot-S, Samara-Colace) 2 tablet PO BID PRN PRN PRN Reason: Constipation Sodium Chloride () 10 - 40 ml IV UD PRN PRN Reason: SALINE FLUSH Last Admin: 05/02/20 04:28 Dose: 10 ml Documented by: Thiamine HCl (Vitamin B1) 100 mg PO BIDCO[facility] Stop: 05/04/20 17:01 Throat Lozenges (Cepacol Sore Throat Lozenge) 1 lozenge MUCOUS MEM Q2H PRN PRN PRN Reason: SORE THROAT STROKE Vital Signs/Narrative: Vital Signs Temp Pulse Resp BP BP Pulse Ox 05/02/20 07:28 74 05/02/20 07:00 98.6 F 77 14 154/81 H 100 05/02/20 06:30 98.5 F 70 24 H 143/82 H 100 05/02/20 06:00 98.3 F 71 18 164/83 H 100 05/02/20 05:50 99 05/02/20 05:45 97.7 F L 81 25 H 144/80 H 100 05/02/20 05:37 76 05/02/20 05:30 76 34 H 145/86 H 05/02/20 05:05 75 05/02/20 04:35 80 30 H 97 05/02/20 04:16 86 38 H 05/02/20 04:15 80 36 H 100 05/02/20 04:05 97.3 F L 88 36 H 168/86 H 100 Medical Necessity - Tobacco Use Smoking Status: Former smoker Tobacco Use: Cigarettes Assessment/Plan All Active Problems (Last Reviewed 08/07/19 @ 09:35 by Chica Aguirre) Sepsis due to pneumonia (Acute) Community acquired pneumonia (Acute) Hypoxemia (Acute) UTI (urinary tract infection) (Acute) Pneumococcal pneumonia (Acute) Severe sepsis (Acute) Shortness of breath (Acute) COPD exacerbation (Acute) Fall at home (Resolved) Hyponatremia (Resolved) This is a 85-year-old male admitted with shortness of breath, dyspnea, pleuritic chest pain and hypoxia and abnormal chest x-ray finding. 1. Acute on chronic hypoxic respiratory failure with history of COPD: Patient on baseline 4 L of home oxygen. Chest x-ray independently reviewed and suggestive of patchy right lower lobe infiltrate and nodule and discussed with the cashier clerk. Chest CT scan ordered to further characterize the findings of chest x-ray. Continue IV antibiotic, bronchodilator, IV Solu-Medrol, Mucinex and NIPPV respiratory support. Sent on BiPAP 30% FiO2. ABG 7.43/41/104 on BiPAP 35%. 2. COPD exacerbation most probably secondary to most probable right lower lobe community-acquired pneumonia: As mentioned above. On IV ceftriaxone and azithromycin. Urinary antigens are negative. Blood culture x2 and respiratory panel and sputum culture pending. COVID-19 PCR negative 3. Chronic hyponatremia: Patient baseline sodium varies between 127-132 most probably secondary to chronic alcohol use. Patient is isovolumic 4. Chronic alcohol use: On CIWA protocol, thiamine and folic acid. Patient has bilateral upper extremity resting tremors with abrupt onset. He says it is chronic for at least 3 to 4 years most probably secondary to chronic alcohol use. Not consistent with a pattern of basal ganglia or Parkinson's disease 5. Paroxysmal A. fib: On quality assurance monitor final patient is A. fib. Heart rate fluctuates between 80 to 100/min. Started on metoprolol 25 mg twice daily. Patient not on anticoagulation at home. 6. Other chronic comorbidities include hypertension, dyslipidemia, hypothyroidism, chronic normocytic anemia and history of smoking: Multiple comorbidities complicates the present care and expect difficult and delay recovery. PT and OT CODE STATUS: Full code. Discussed by nighttime hospitalist. Inpatient E&M: [id number] Subs Hosp L3
--- NOTE | 2020-05-02 07:43 | CT_ITS ---
STUDY: CT CHEST WITH CONTRAST REASON FOR EXAM: Male, 85 years old. NODULE ON CXR, INCREASED SOB, COUGH PNEUMONIA, HX-COPD, TREMOR, A-FIB, ETOH ABUSE, TOBACCO USE RADIATION DOSAGE (If Supplied By Facility): CTDIvol = ( 18.71 ) mGy, DLP = ( 660.54 ) mGycm TECHNIQUE: Transaxial imaging was performed following intravenous administration of IV 100mL Isovue-370. Multiplanar coronal and sagittal images were reformatted. Individualized dose optimization techniques were used for this CT. COMPARISON: 03/31/2018 FINDINGS: Subpleural consolidation with small volume right pleural effusion new since the prior study. Oval-shaped subpleural consolidation in the medial left lower lobe on image 89 of series 4 is overall stable with some fibrotic reticulation extending towards the central hilum. A subpleural nodule in the lateral left lower lobe measuring 6 x 9 mm on image 86 is new since the prior study. There is no demonstrated pleural abnormality. Normal heart and pericardium. There are calcifications of the coronary arteries. Normal mediastinum. Normal hilar regions. Normal enhanced pulmonary arteries. There is atherosclerotic calcification of the aortic arch with tortuosity and elongation of the aortic arch and descending thoracic aorta. There are multi-level degenerative changes of the thoracic spine. There is no demonstrated abnormality of the visualized upper abdomen. CT/Chest WITH Contrast IMPRESSION: 1. Right lower lobe consolidation with small pleural effusion suggesting pneumonia. 2. Stable subpleural rounded atelectasis of the medial left lower lobe. 3. 6 x 9 mm subpleural nodule in the lateral left lower lobe, new. Repeat chest CT in 3 months recommended according to FLEISCHNER Society guidelines. Electronically Signed: Mitch Huffman MD ([place]oks) at 14:03 EDT , Service support ,
[2020-05-02] MEDS: Folic Acid 1 MG Tablet PO ×2 (09:04)
[2020-05-02] MEDS: Aspirin 81 MG TAB.CHEW PO (09:05)
[2020-05-02] MEDS: Famotidine 20 MG Tablet PO ×2 (09:05→21:41)
[2020-05-02] MEDS: Enoxaparin 40 MG/0.4 ML Syringe SC (09:05)
[2020-05-02] MEDS: Multivitamins,Ther W-Minerals Tablet 1 TABLET PO (09:05)
[2020-05-02] MEDS: Thiamine Hydrochloride 100 MG Tablet PO ×2 (09:05→17:56)
[2020-05-02] MEDS: LORazepam 2 MG/ML Syringe IV ×2 (14:10→22:55)
--- NOTE | 2020-05-02 14:18 | EKG12_ITS ---
Test Reason : AFIB Blood Pressure : / mmHG Vent. Rate : 088 BPM Atrial Rate : 088 BPM P-R Int : 256 ms QRS Dur : 076 ms QT Int : 362 ms P-R-T Axes : 000 -20 044 degrees QTc Int : 438 ms Wandering atrial pacemaker rhythm Otherwise normal ECG When compared with ECG of 02-MAY-2020 00:15, MANUAL COMPARISON REQUIRED, DATA IS UNCONFIRMED Confirmed by LEVI CORMIER, JEREMIAS ([id number]), newspaper photo editor MIMA HARLEY ([id number]) on 05/05/2020 11:24:30 AM Referred By: Confirmed By:CONSTANCE SIMS MD
--- NOTE | 2020-05-02 16:08 | NURSING ---
Spoke with daughter Chel Villanueva. The daughter stated the pt drinks a 12 pack a day and lives with her brother. The daughter believes the pt would benefit from placement. She believes her brother does not take the best care of her father. She stated, My brother works long hours and my father whom is wheelchair bound, is home alone most of the time.
[2020-05-02] MEDS: Metoprolol Tartrate 25 MG Tablet PO ×2 (17:53→21:41)
[2020-05-03] VITALS (32 sets, daily range): BP systolic 110–168; BP diastolic 55–114; PULSE 57–101; RESP 12–24; TEMP 36.4–37.1; O2SAT 94–100
[2020-05-03] MEDS: 0.9% Normal Saline 1,000 ML 100 ML IV (00:06)
[2020-05-03] MEDS: LORazepam 2 MG/ML Syringe IV ×2 (01:48→16:48)
--- NOTE | 2020-05-03 02:00 | PCM.HOSP.N ---
Hospitalist Note Patient per RN drinking significant amount of water. Patient low Na may also be in part secondary to polydipsia and also his EtOH abuse. Given intake will d/c IVFs and may pending further levels need to place fluid restriction and monitor Na.
[2020-05-03 05:30] LABS: Absolute Lymphocyte Count 0.92 X10^3/uL (0.83-4.51); Absolute Neutrophil Count 15.4 X10^3/uL (2.0-7.7); Basophil# 0.01 X10^3/uL; Basophil% 0.1 % (0-1); Hematocrit 32.1 % (40-54); Hemoglobin 10.3 g/dL (13.0-16.5); Lymphocyte # 0.92 X10^3/ul (4.0); Lymphocyte % 5.4 % (19-41); Mean Corp Hgb Conc 32.1 g/dL (32-36); Mean Corpuscular Hgb 31.8 pg (27.0-32.0); Mean Corpuscular Volume 99.1 fL (80-94); Mean Platelet Vol. 9.8 fl (6.2-12.0); Monocyte# 0.73 X10^3/uL; Monocyte% 4.3 % (0-10); NRBC Flagged by Analyzer 0 % (0-5); Neutrophil # 15.35 X10^3/uL (2.7-7.7); Neutrophil % 89.3 % (47-70); Platelet Count 283 K/mm3 (150-450); RBC Distribution Width CV 15.6 % (11.6-14.6); RBC Distribution Width SD 56.9 fl (35.1-43.9); Red Blood Count 3.24 M/mm3 (4.6-6.2); White Blood Count 17.2 K/mm3 (4.4-11.0)
[2020-05-03] MEDS: Phenobarbital 32.4 MG Tablet PO ×4 (05:38→21:24)
[2020-05-03 05:40] LABS: Anion Gap 6 (5-15); BUN 19 mg/dL (7-18); BUN/Creat Ratio 24.3 RATIO (10-20); Calcium,Total 8.6 mg/dL (8.5-10.1); Chloride 93 mmol/L (98-107); Creatinine, Serum 0.78 mg/dL (0.70-1.30); EST Glomerular Filtration Rate 100 mL/min (>60); Est Glom Filt Rate - Afr Amer 122 mL/min (>60); Estimated Creatinine Clearance 57.52 ml/min; Glucose 169 mg/dL (74-106); Magnesium 1.9 mg/dL (1.6-2.6); Phosphorus 3.1 mg/dL (2.5-4.9); Potassium 4.4 mmol/L (3.5-5.1); Sodium Level 127 mmol/L (136-145)
[2020-05-03] MEDS: hydrOXYzine PAM 25 MG Capsule 50 MG PO (06:07)
[2020-05-03] MEDS: 0.9% Saline Lock 10 ML Syringe IV ×2 (06:17→21:27)
[2020-05-03] MEDS: Haloperidol Lactate 5 MG/ML Vial 3 MG IV (06:20)
--- NOTE | 2020-05-03 07:13 | PN_ITS ---
Subjective: Patient did okay overnight. Patient did have more symptomatology of alcohol withdrawal requiring initiation of phenobarbital and 2 doses of Ativan. This morning, patient had a significant tremor and appeared to be hallucinating. Patient did respond well to Haldol therapy. Oxygenation has improved. Patient does remain tachycardic and hypertensive, but nursing thought this correlated with agitation. General: Alert, Confused, Disoriented, - - Appears stated age HEENT: Atraumatic, PERRLA, EOMI, Normocephalic, - - No scleral icterus or injection noted Oral: Moist Mucosa, No Gingival or Mucosal Lesions/ Ulcerations Neck: Supple, No JVD, No Nodes, Trachea Midline Lungs: No rhonchi, No wheeze, No rales, Diminished, - - Symmetric expansion. No dullness to percussion. Cardiovascular: Normal S1, Normal S2, No murmurs, Irregular Rate, No rub noted, No Gallop, Tachycardic Abdomen: Bowel Sounds Present, Soft, Non Tender, Non-Distended Extremities: No clubbing, No cyanosis, Edema Skin: No rashes, No breakdown, - - Dermal atrophy noted Musculoskeletal: No Tenderness to Palpation of Joints or Extremities Lymphatic: No Cervical, Supraclavicular, or Inguinal Adenopathy Neurological: Cranial nerves II-XII grossly intact, Neuro grossly intact, Motor Exam 5/5 strength throughout, - - Significant baseline tremor noted. Psych/Mental Status: Anxious, Impulsive, Restless Vital Signs Temp Pulse Resp BP Pulse Ox 36.4 C L 91 14 163/101 H 94 05/03/20 06:00 05/03/20 06:00 05/03/20 06:00 05/03/20 06:00 05/03/20 06:00 Oxygen Flow Rate (L/min) 2 Oxygen Delivery Method Nasal Cannula Weight: 85.3 kg Body Mass Index (BMI) 25.3 Intake and Output for Last 24 Hours 05/01/20 05/02/20 05/03/20 23:59 23:59 23:59 Intake Total 3711.66 / 3951.66 576.67 / 576.67 Output Total 1900 / 2200 600 / 600 Balance 1811.66 / 1751.66 -23.33 / -23.33 Labs (Last 48 Hours) 05/01/20 05/01/20 05/01/20 23:50 23:50 23:50 WBC 9.2 RBC 3.19 L Hgb 10.2 L Hct 31.2 L MCV 97.8 H MCH 32.0 MCHC 32.7 RDW Std Deviation 54.8 H RDW Coeff of Tera 15.2 H Plt Count 253 MPV 8.9 Immature Gran % (Auto) 0.400 Neut % (Auto) 61.4 Lymph % (Auto) 20.1 [place] % (Auto) 13.5 H Eos % (Auto) 4.1 Baso % (Auto) 0.5 Absolute Neuts (auto) 5.7 Absolute Lymphs (auto) 1.85 Nucleated RBC % 0 D-Dimer Quant (PE/DVT) 0.45 Specimen Type Sample Site pH Bicarbonate Actual Total CO2 Base Excess O2 Saturation O2 % ABG pCO2 ABG pO2 Joe Test Respiration Rate O2 Delivery Device POC PEEP Sodium 127 L Potassium 4.2 Chloride 92 L Carbon Dioxide 29.0 Anion Gap 6 BUN 12 Creatinine 0.65 L Estim Creat Clear Calc 55.76 Est GFR (MDRD) Af Amer 151 Est GFR (MDRD) Non-Af 125 BUN/Creatinine Ratio 18.6 Glucose 87 Lactic Acid Calcium 8.1 L Phosphorus Magnesium Total Bilirubin AST ALT Alkaline Phosphatase Troponin I < 0.015 Total Protein Albumin Globulin Albumin/Globulin Ratio Procalcitonin TSH Free T4 Ethyl Alcohol COVID-19 (STEFF) 05/01/20 05/01/20 05/01/20 23:50 23:50 23:50 WBC RBC Hgb Hct MCV MCH MCHC RDW Std Deviation RDW Coeff of Tera Plt Count MPV Immature Gran % (Auto) Neut % (Auto) Lymph % (Auto) [place] % (Auto) Eos % (Auto) Baso % (Auto) Absolute Neuts (auto) Absolute Lymphs (auto) Nucleated RBC % D-Dimer Quant (PE/DVT) Specimen Type Sample Site pH Bicarbonate Actual Total CO2 Base Excess O2 Saturation O2 % ABG pCO2 ABG pO2 Joe Test Respiration Rate O2 Delivery Device POC PEEP Sodium Potassium Chloride Carbon Dioxide Anion Gap BUN Creatinine Estim Creat Clear Calc Est GFR (MDRD) Af Amer Est GFR (MDRD) Non-Af BUN/Creatinine Ratio Glucose Lactic Acid 1.0 Calcium Phosphorus 3.3 Magnesium 1.9 Total Bilirubin AST ALT Alkaline Phosphatase Troponin I Total Protein Albumin Globulin Albumin/Globulin Ratio Procalcitonin TSH 2.12 Free T4 1.11 Ethyl Alcohol COVID-19 (STEFF) 05/02/20 05/02/20 05/02/20 00:15 04:30 04:30 WBC RBC Hgb Hct MCV MCH MCHC RDW Std Deviation RDW Coeff of Tera Plt Count MPV Immature Gran % (Auto) Neut % (Auto) Lymph % (Auto) [place] % (Auto) Eos % (Auto) Baso % (Auto) Absolute Neuts (auto) Absolute Lymphs (auto) Nucleated RBC % D-Dimer Quant (PE/DVT) Specimen Type Sample Site pH Bicarbonate Actual Total CO2 Base Excess O2 Saturation O2 % ABG pCO2 ABG pO2 Joe Test Respiration Rate O2 Delivery Device POC PEEP Sodium Potassium Chloride Carbon Dioxide Anion Gap BUN Creatinine Estim Creat Clear Calc Est GFR (MDRD) Af Amer Est GFR (MDRD) Non-Af BUN/Creatinine Ratio Glucose Lactic Acid Calcium Phosphorus Magnesium Total Bilirubin AST ALT Alkaline Phosphatase Troponin I Total Protein Albumin Globulin Albumin/Globulin Ratio Procalcitonin < 0.04 TSH Free T4 Ethyl Alcohol 6.0 COVID-19 (STEFF) Not Detected 05/02/20 05/02/20 05/02/20 04:30 04:30 05:45 WBC 7.9 RBC 3.37 L Hgb 10.8 L Hct 32.8 L MCV 97.3 H MCH 32.0 MCHC 32.9 RDW Std Deviation 54.4 H RDW Coeff of Tera 15.2 H Plt Count 249 MPV 8.9 Immature Gran % (Auto) 0.600 Neut % (Auto) 87.6 H Lymph % (Auto) 10.1 L [place] % (Auto) 1.5 Eos % (Auto) 0.1 Baso % (Auto) 0.1 Absolute Neuts (auto) 6.9 Absolute Lymphs (auto) 0.79 L Nucleated RBC % 0 D-Dimer Quant (PE/DVT) Specimen Type ART Sample Site L Radial pH 7.43 Bicarbonate Actual 27.2 H Total CO2 29 Base Excess 3 H O2 Saturation 98 O2 % 35 ABG pCO2 41.0 ABG pO2 104 H Joe Test Positive Respiration Rate 12.0000 O2 Delivery Device BiPAP POC PEEP 10.0000 Sodium 127 L Potassium 4.2 Chloride 92 L Carbon Dioxide 28.0 Anion Gap 7 BUN 11 Creatinine 0.69 L Estim Creat Clear Calc 57.52 Est GFR (MDRD) Af Amer 141 Est GFR (MDRD) Non-Af 116 BUN/Creatinine Ratio 16.0 Glucose 143 H Lactic Acid Calcium 8.5 Phosphorus Magnesium Total Bilirubin 0.40 AST 13 L ALT 20 Alkaline Phosphatase 63 Troponin I < 0.015 Total Protein 6.9 Albumin 3.4 Globulin 3.5 Albumin/Globulin Ratio 1.0 Procalcitonin TSH Free T4 Ethyl Alcohol COVID-19 (STEFF) 05/02/20 05/03/20 05/03/20 14:00 03:15 03:15 WBC 17.2 H RBC 3.24 L Hgb 10.3 L Hct 32.1 L MCV 99.1 H MCH 31.8 MCHC 32.1 RDW Std Deviation 56.9 H RDW Coeff of Tera 15.6 H Plt Count 283 MPV 9.8 Immature Gran % (Auto) 0.900 Neut % (Auto) 89.3 H Lymph % (Auto) 5.4 L [place] % (Auto) 4.3 Eos % (Auto) 0.0 Baso % (Auto) 0.1 Absolute Neuts (auto) 15.4 H Absolute Lymphs (auto) 0.92 Nucleated RBC % 0 D-Dimer Quant (PE/DVT) Specimen Type Sample Site pH Bicarbonate Actual Total CO2 Base Excess O2 Saturation O2 % ABG pCO2 ABG pO2 Joe Test Respiration Rate O2 Delivery Device POC PEEP Sodium 127 L Potassium 4.4 Chloride 93 L Carbon Dioxide 28.0 Anion Gap 6 BUN 19 H Creatinine 0.78 Estim Creat Clear Calc 57.52 Est GFR (MDRD) Af Amer 122 Est GFR (MDRD) Non-Af 100 BUN/Creatinine Ratio 24.3 H Glucose 169 H Lactic Acid Calcium 8.6 Phosphorus 3.1 Magnesium 1.9 Total Bilirubin AST ALT Alkaline Phosphatase Troponin I < 0.015 Total Protein Albumin Globulin Albumin/Globulin Ratio Procalcitonin TSH Free T4 Ethyl Alcohol COVID-19 (STEFF) Microbiology 05/02/20 04:16 Sputum, Expectorated/Coughed Gram Stain - Final 05/02/20 00:15 Mucosa - Nasopharyngeal Respiratory Panel (PCR) - Final 05/02/20 05:30 Urine Catheter - Catheter Streptococcus pneumoniae Antigen (M - Final 05/02/20 05:30 Urine Catheter - Catheter Legionella Antigen - Final Clinical Impression(s) from Imaging Studies Chest CT 05/02/20 07:43 IMPRESSION: 1. Right lower lobe consolidation with small pleural effusion suggesting pneumonia. 2. Stable subpleural rounded atelectasis of the medial left lower lobe. 3. 6 x 9 mm subpleural nodule in the lateral left lower lobe, new. Repeat chest CT in 3 months recommended according to FLEISCH[employer] Society guidelines. Electronically Signed: Mitch Huffman MD (Bro[place]) at 14:03 EDT , Service support , Medical Necessity - Tobacco Use Smoking Status: Former smoker Tobacco Use: Cigarettes Assessment/Plan All Active Problems (Last Reviewed 08/07/19 @ 09:35 by Chica Aguirre) Sepsis due to pneumonia (Acute) Community acquired pneumonia (Acute) Hypoxemia (Acute) UTI (urinary tract infection) (Acute) Pneumococcal pneumonia (Acute) Severe sepsis (Acute) Shortness of breath (Acute) COPD exacerbation (Acute) Fall at home (Resolved) Hyponatremia (Resolved) RECOMMENDATIONS: 1. Attempt to minimize BiPAP therapy. Goal to maintain oxygen saturations at or above 90%. 2. Continue scheduled bronchodilator therapy along with IV steroids. 3. Continue empiric antimicrobials, pending infectious work-up. 4. Hold on thoracentesis for now 5. Gentle IV fluid hydration, given n.p.o. status. 6. CIIA protocol. Monitor for any signs of alcohol withdrawal. IMPRESSIONS: 1. Acute on chronic hypoxemic respiratory failure The patient has an apparent history of COPD of unknown severity, having never been evaluated by hospitality workers or having completed pulmonary function studies. He does have an apparent baseline supplemental oxygen requirement of 4 L/min. His x-rays certainly concerning for a potential right lower lobe pneumonia. Therefore, it is reasonable to continue antimicrobials, bronchodilators and IV steroids for now. Patient does appear to have a right lower lobe infiltrate with associated effusion on CT scan. We will continue with antibiotics for now. 2. Hyponatremia Unclear if this is chronic or not. Patient has been on IV hydration o vernight and this is unchanged compared to previous. Do not believe patient is currently having delirium secondary to the hyponatremia. Would not recommend 3% saline 3. Chronic alcohol dependency with active withdrawal Patient has been started on the CIWA protocol. Patient is on folate, thiamine and multivitamin. Patient did receive a as needed dose of Haldol this morning, but phenobarb should be continued. 4. History of tobacco dependency/paroxysmal atrial fibrillation/hypertension/hyperlipidemia/anemia Complicates care, management, recovery and prognosis. Continue home medications as indicated. Physical therapy will need to evaluate the patient. Inpatient E&M: [id number] [facility] Hosp L3
[2020-05-03] MEDS: Ipratropium/Albuterol Sulfate 3 ML AMPUL.NEB INHALATION ×3 (09:54→18:32)
--- NOTE | 2020-05-03 11:48 | CASEMGMT ---
Social Work Note SW spoke with RN, pt not able to participate in assessment today. Pt going through ETOH withdrawal. SW attempted to call pt's daughter Cassandra to complete assessment, no answer, voicemail left. SW waiting for call back. Chel Hutchins FREIGHT DELIVERY DRIVER, CONTRACTS ADVISOR
[2020-05-03] MEDS: Multivitamins,Ther W-Minerals Tablet 1 TABLET PO (12:09)
[2020-05-03] MEDS: Aspirin 81 MG TAB.CHEW PO (12:09)
[2020-05-03] MEDS: Thiamine Hydrochloride 100 MG Tablet PO ×2 (12:09→16:18)
[2020-05-03] MEDS: Enoxaparin 40 MG/0.4 ML Syringe SC (12:09)
[2020-05-03] MEDS: Famotidine 20 MG Tablet PO ×2 (12:09→21:24)
[2020-05-03] MEDS: Metoprolol Tartrate 25 MG Tablet PO (12:09)
--- NOTE | 2020-05-03 14:57 | PCM.PN.HOSP ---
Reason for Visit: Follow-up for alcohol withdrawal syndrome, respiratory failure and hyponatremia. Objective: Overnight patient was more symptomatic with tremors and alcohol withdrawal symptoms. Patient was started on phenobarbital based supportive medications regimen for alcohol withdrawal syndrome. Patient has resting tremors and hallucinating. He also had Haldol and Ativan. Physical exam General: Drowsy, lethargic and sleepy. On oxygen through nasal cannula HEENT: Atraumatic, PERRLA, EOMI, Normocephalic Oral: No Gingival or Mucosal Lesions/ Ulcerations Neck: Supple, No JVD, Negative Carotid Bruits Lungs: Air entry diminished in bilateral lung. Decreased respiratory effort as patient is sleepy. Bilateral expiratory rhonchi. Cardiovascular: Irregular rate and rhythm, Normal S1, Normal S2, No murmurs Abdomen: Bowel Sounds Present, Soft, Non Tender, nondistended : No renal angle tenderness. No suprapubic tenderness. Weber catheter present. Extremities: No edema, Capillary Refill Less than 3 Seconds Skin: No rashes, No breakdown Musculoskeletal: No Tenderness to Palpation of Joints or Extremities Neurological: Cranial nerves II-XII grossly intact, Deep Tendon Reflexes 2+/4 and Symmetrical, sometimes shaking of bilateral upper extremities Psych/Mental Status: Normal Affect, Appropriate. Vitals/I&O's: Vital Signs Temp Pulse Resp BP Pulse Ox 98.1 F 58 L 18 110/55 L 97 05/03/20 12:00 05/03/20 14:00 05/03/20 14:00 05/03/20 14:00 05/03/20 14:00 Oxygen Flow Rate (L/min) 2 Oxygen Delivery Method Nasal Cannula Weight: 188 lb 0.869 oz Body Mass Index (BMI) 25.3 Intake and Output for Last 24 Hours 05/01/20 05/02/20 05/03/20 23:59 23:59 23:59 Intake Total 3711.66 / 3951.66 651.67 / 651.67 Output Total 1900 / 2200 950 / 950 Balance 1811.66 / 1751.66 -298.33 / -298.33 Microbiology Past 72 Hours 05/02/20 04:16 Sputum, Expectorated/Coughed Gram Stain - Final 05/02/20 04:16 Sputum, Expectorated/Coughed Respiratory Culture - Preliminary Appears to be normal respiratory lizz. Further studies to follow. 05/02/20 00:15 Mucosa - Nasopharyngeal Respiratory Panel (PCR) - Final 05/02/20 05:30 Urine Catheter - Catheter Streptococcus pneumoniae Antigen (M - Final 05/02/20 05:30 Urine Catheter - Catheter Legionella Antigen - Final Laboratory Results 05/03/20 03:15: WBC 17.2 H, RBC 3.24 L, Hgb 10.3 L, Hct 32.1 L, MCV 99.1 H, MCH 31.8, MCHC 32.1, RDW Std Deviation 56.9 H, RDW Coeff of Tera 15.6 H, Plt Count 283, MPV 9.8, Immature Gran % (Auto) 0.900, Neut % (Auto) 89.3 H, Lymph % (Auto) 5.4 L, Gilliam % (Auto) 4.3, Eos % (Auto) 0.0, Baso % (Auto) 0.1, Absolute Neuts (auto) 15.4 H, Absolute Lymphs (auto) 0.92, Nucleated RBC % 0 05/03/20 03:15: Sodium 127 L, Potassium 4.4, Chloride 93 L, Carbon Dioxide 28.0, Anion Gap 6, BUN 19 H, Creatinine 0.78, Estim Creat Clear Calc 57.52, Est GFR (MDRD) Af Amer 122, Est GFR (MDRD) Non-Af 100, BUN/Creatinine Ratio 24.3 H, Glucose 169 H, Calcium 8.6, Phosphorus 3.1, Magnesium 1.9 Current Medications Acetaminophen (Tylenol) 650 mg PO Q6H PRN PRN PRN Reason: Pain Score 1-10/Temp > 100.7 F Al Hydroxide/Mg Hydroxide (Mylanta Ii) 30 ml PO Q6H PRN PRN PRN Reason: Gastric Burning Albuterol Sulfate (Ventolin Aerosols) 2.5 mg INHALATION Q2H PRN PRN PRN Reason: Dyspnea, wheezing Last Admin: 05/02/20 04:14 Dose: 2.5 mg Documented by: Albuterol/Ipratropium (Duoneb) 3 ml INHALATION Q4HWA.RT [facility] Last Admin: 05/03/20 09:54 Dose: 3 ml Documented by: Aspirin (Aspirin, Baby) 81 mg PO DAILY@0800 [facility] Last Admin: 05/03/20 12:09 Dose: 81 mg Documented by: Dicyclomine HCl (Bentyl) 20 mg PO Q6H PRN PRN PRN Reason: abdominal discomfort Enoxaparin Sodium (Lovenox) 40 mg SC DAILY [facility] Last Admin: 05/03/20 12:09 Dose: 40 mg Documented by: Famotidine (Pepcid) 20 mg PO BID [facility] Last Admin: 05/03/20 12:09 Dose: 20 mg Documented by: Folic Acid (Folic Acid) 1 mg PO DAILY@0800 [facility] Stop: 05/04/20 08:01 Last Admin: 05/02/20 09:04 Dose: 1 mg Documented by: Gabapentin (Neurontin) 300 mg PO Q8H PRN PRN PRN Reason: moderate to severe anxiety Guaifenesin (Robitussin) 20 ml PO Q4H PRN PRN PRN Reason: COUGH Hydroxyzine Pamoate (Vistaril Pamoate Capsule) 50 mg PO Q4H PRN PRN PRN Reason: mild anxiety Last Admin: 05/03/20 06:07 Dose: 50 mg Documented by: Azithromycin 500 mg/ Dextrose 255 mls @ 250 mls/hr IV Q24H [facility] Last Infusion: 05/02/20 23:56 Dose: Infused Documented by: Ceftriaxone Sodium 2 gm/ (Sodium Chloride) 50 mls @ 100 mls/hr IV Q24H [facility] Last Infusion: 05/02/20 22:06 Dose: Infused Documented by: Sodium Chloride () 250 mls @ 15 mls/hr IV .[id number] PRN PRN Reason: Saline Flush Loperamide HCl (Imodium) 2 mg PO Q4H PRN PRN PRN Reason: LOOSE STOOLS Lorazepam (Ativan) 2 mg PO Q2H PRN PRN; Protocol PRN Reason: CIWA score > 8 but <15 Lorazepam (Ativan) 2 mg PO UD PRN; Protocol PRN Reason: CIWA score >/=15. Lorazepam (Ativan) 2 mg IV Q2H PRN PRN; Protocol PRN Reason: CIWA score > 8 but <15 Last Admin: 05/03/20 01:48 Dose: 2 mg Documented by: Lorazepam (Ativan) 2 mg IV UD PRN; Protocol PRN Reason: CIWA score >/=15. Magnesium Hydroxide (Milk Of Magnesia) 30 ml PO DAILY PRN PRN PRN Reason: Constipation Melatonin (Melatonin) 3 mg PO QHS PRN PRN PRN Reason: INSOMNIA Methylprednisolone (Solu-Medrol) 40 mg IV Q8 [facility] Last Admin: 05/03/20 05:19 Dose: 40 mg Documented by: Metoprolol Tartrate (Lopressor (Beta Miky)) 25 mg PO BID [facility] Last Admin: 05/03/20 12:09 Dose: 25 mg Documented by: Multivitamins/Minerals (Multivitamin With Minerals (Bkc)) [facility] Last Admin: 05/03/20 12:09 Dose: 1 tablet Documented by: Nitroglycerin (Nitrostat) 0.4 mg SUBLINGUAL Q5M PRN PRN Reason: CARDIAC/CHEST PAIN Ondansetron HCl (Zofran) 4 mg IV Q8H PRN PRN PRN Reason: NAUSEA/VOMITING Phenobarbital (Phenobarbital) 97.2 mg PO Q4H [facility]; Taper Stop: 05/07/20 13:29 Last Admin: 05/03/20 13:27 Dose: Not Given Documented by: Prochlorperazine Edisylate (Compazine Iv) 5 mg IV Q4H PRN PRN PRN Reason: Breakthrough nausea/vomiting Psyllium Hydrophilic Mucilloid (Metamucil) 1 packet PO DAILY PRN PRN PRN Reason: Constipation Senna/Docusate Sodium (Senokot-S, Samara-Colace) 2 tablet PO BID PRN PRN PRN Reason: Constipation Sodium Chloride () 10 - 40 ml IV UD PRN PRN Reason: SALINE FLUSH Last Admin: 05/03/20 06:17 Dose: 20 ml Documented by: Thiamine HCl (Vitamin B1) [facility] Stop: 05/04/20 17:01 Last Admin: 05/03/20 12:09 Dose: 100 mg Documented by: Throat Lozenges (Cepacol Sore Throat Lozenge) 1 lozenge MUCOUS MEM Q2H PRN PRN PRN Reason: SORE THROAT STROKE Vital Signs/Narrative: Vital Signs Temp Pulse Resp BP BP Pulse Ox 05/03/20 14:00 58 L 18 110/55 L 97 05/03/20 13:00 65 21 H 165/107 H 100 05/03/20 12:09 101 H 05/03/20 12:00 98.1 F 63 18 152/73 H 100 05/03/20 11:00 97.9 F 69 12 154/77 H 100 Medical Necessity - Tobacco Use Smoking Status: Former smoker Tobacco Use: Cigarettes Assessment/Plan All Active Problems (Last Reviewed 08/07/19 @ 09:35 by Chica Aguirre) Sepsis due to pneumonia (Acute) Community acquired pneumonia (Acute) Hypoxemia (Acute) UTI (urinary tract infection) (Acute) Pneumococcal pneumonia (Acute) Severe sepsis (Acute) Shortness of breath (Acute) COPD exacerbation (Acute) Fall at home (Resolved) Hyponatremia (Resolved) This is a 85-year-old male admitted with shortness of breath, dyspnea, pleuritic chest pain and hypoxia and abnormal chest x-ray finding. 1. Acute on chronic hypoxic respiratory failure with history of COPD: Patient on baseline 4 L of home oxygen. 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 Continue IV antibiotic, bronchodilator, IV Solu-Medrol, Mucinex and NIPPV respiratory support. Sent on BiPAP 30% FiO2. ABG 7.43/41/104 on BiPAP 35%. 05/03: BiPAP for rescue. Currently on oxygen through nasal cannula. 2. COPD exacerbation most probably secondary to most probable right lower lobe community-acquired pneumonia: As mentioned above. On IV ceftriaxone and azithromycin. 05/03: Chest CT scan was done which shows right lower lobe consolidation with small pleural effusion suggesting pneumonia. 6.9 mm subpleural nodule in the lateral left lower lobe, new. Follow-up chest CT scan in 3 months as per Fleischner guidelines. Continue antibiotic. Sputum culture appears normal respiratory lizz. Urinary antigens and respiratory panel are negative. Blood cultures x2 are pending. COVID-19 PCR negative. 3. Chronic hyponatremia: Patient baseline sodium varies between 127-132 most probably secondary to chronic alcohol use. Patient is isovolumic Sodium is stable 127 for last 3 days. 4. Chronic alcohol use: On CIWA protocol, thiamine and folic acid. Patient has bilateral upper extremity resting tremors with abrupt onset. He says it is chronic for at least 3 to 4 years most probably secondary to chronic alcohol use. Not consistent with a pattern of basal ganglia or Parkinson's disease 05/03: Acute alcohol withdrawal syndrome: On phenobarbital based supportive medication. 5. Paroxysmal A. fib: On residential monitor patient is A. fib. Heart rate fluctuates between 80 to 100/min. Started on metoprolol 25 mg twice daily. Patient not on anticoagulation at home. 6. Other chronic comorbidities include hypertension, dyslipidemia, hypothyroidism, chronic normocytic anemia and history of smoking: Multiple comorbidities complicates the present care and expect difficult and delay recovery. PT and OT CODE STATUS: Full code. Discussed by nighttime hospitalist. Inpatient E&M: 56984 Subs Hosp L3
[2020-05-04] VITALS (22 sets, daily range): BP systolic 120–159; BP diastolic 65–94; PULSE 59–98; RESP 9–30; TEMP 36.4–37.1; O2SAT 89–100
[2020-05-04] MEDS: Phenobarbital 32.4 MG Tablet PO ×6 (01:33→21:10)
[2020-05-04] MEDS: 0.9% Saline Lock 10 ML Syringe IV ×4 (05:41→21:10)
[2020-05-04 06:13] LABS: Absolute Neutrophil Count 12.1 X10^3/uL (2.0-7.7); Basophil# 0.01 X10^3/uL; Basophil% 0.1 % (0-1); Eosinophil# 0.03 X10^3/uL; Eosinophils% 0.2 % (0-5); Hematocrit 35.4 % (40-54); Hemoglobin 11.3 g/dL (13.0-16.5); Lymphocyte % 4.5 % (19-41); Mean Corp Hgb Conc 31.9 g/dL (32-36); Mean Corpuscular Hgb 32.1 pg (27.0-32.0); Mean Corpuscular Volume 100.6 fL (80-94); Mean Platelet Vol. 9.3 fl (6.2-12.0); Monocyte# 0.55 X10^3/uL; Monocyte% 4.1 % (0-10); NRBC Flagged by Analyzer 0 % (0-5); Neutrophil # 12.06 X10^3/uL (2.7-7.7); Neutrophil % 90.5 % (47-70); POSITIVE DIFFERENTIAL YES; Platelet Count 281 K/mm3 (150-450); RBC Distribution Width CV 15.7 % (11.6-14.6); Red Blood Count 3.52 M/mm3 (4.6-6.2); White Blood Count 13.3 K/mm3 (4.4-11.0)
[2020-05-04 06:14] LABS: ALB/GLOB Ratio 0.9 RATIO (0.9-2.4); AST(SGOT) 12 U/L (15-37); Alanine Aminotransfer ALT/SGPT 19 U/L (16-61); Albumin, Serum 3.2 g/dL (3.2-5.0); Alkaline Phosphatase 52 U/L (45-117); Anion Gap 6 (5-15); BUN 19 mg/dL (7-18); BUN/Creat Ratio 22.9 RATIO (10-20); Calcium,Total 8.6 mg/dL (8.5-10.1); Chloride 97 mmol/L (98-107); Creatinine, Serum 0.83 mg/dL (0.70-1.30); EST Glomerular Filtration Rate 94 mL/min (>60); Est Glom Filt Rate - Afr Amer 113 mL/min (>60); Globulin 3.5 g/dL (2.2-4.2); Glucose 141 mg/dL (74-106); Magnesium 2.3 mg/dL (1.6-2.6); Phosphorus 4.4 mg/dL (2.5-4.9); Potassium 4.4 mmol/L (3.5-5.1); Protein, Total 6.7 g/dL (6.4-8.2); Sodium Level 134 mmol/L (136-145)
[2020-05-04 06:27] LABS: Differential Indicated SCAN CRITERIA MET
--- NOTE | 2020-05-04 06:39 | PCM.PN.INT ---
Subjective: Patient did well overnight. No acute issues were reported. Nursing is reporting the patient is more directable and appropriate. Patient is still requiring 4 L nasal cannula to maintain saturations, but has otherwise been hemodynamically stable. Patient is tolerating his medications in applesauce with no choking or concerns for aspiration from nursing. General: Alert, Cooperative, No apparent distress, Disoriented, - - No conversational dyspnea HEENT: Atraumatic, PERRLA, EOMI, Normocephalic, - - No scleral icterus or injection noted Oral: Moist Mucosa, No Gingival or Mucosal Lesions/ Ulcerations Neck: Supple, No JVD, No Nodes, Trachea Midline Lungs: No rhonchi, No wheeze, No rales, Diminished, - - Symmetric expansion. No dullness to percussion. Cardiovascular: Normal S1, Normal S2, No murmurs, Irregular Rate, No rub noted, No Gallop Abdomen: Bowel Sounds Present, Soft, Non Tender, Non-Distended Extremities: No clubbing, No cyanosis, Edema - Trace Skin: No rashes, No breakdown Musculoskeletal: No Tenderness to Palpation of Joints or Extremities Lymphatic: No Cervical, Supraclavicular, or Inguinal Adenopathy Neurological: Cranial nerves II-XII grossly intact, Neuro grossly intact, Motor Exam 5/5 strength throughout, - - Resting tremor significantly improved compared to yesterday Psych/Mental Status: Appropriate, Flat Affect Vital Signs Temp Pulse Resp BP Pulse Ox 36.5 C L 59 L 13 145/76 H 94 05/04/20 05:00 05/04/20 05:00 05/04/20 05:00 05/04/20 05:00 05/04/20 05:00 Oxygen Flow Rate (L/min) 4 Oxygen Delivery Method Nasal Cannula Weight: 81 kg Body Mass Index (BMI) 25.3 Intake and Output for Last 24 Hours 05/02/20 05/03/20 05/04/20 23:59 23:59 23:59 Intake Total 3711.66 / 3951.66 1006.67 / 1006.67 Output Total 1900 / 2200 2850 / 2850 750 / 750 Balance 1811.66 / 1751.66 -1843.33 / -1843.33 -750 / -750 Labs (Last 48 Hours) 05/02/20 05/02/20 05/03/20 04:30 14:00 03:15 WBC 17.2 H RBC 3.24 L Hgb 10.3 L Hct 32.1 L MCV 99.1 H MCH 31.8 MCHC 32.1 RDW Std Deviation 56.9 H RDW Coeff of Tera 15.6 H Plt Count 283 MPV 9.8 Immature Gran % (Auto) 0.900 Neut % (Auto) 89.3 H Lymph % (Auto) 5.4 L Crockett % (Auto) 4.3 Eos % (Auto) 0.0 Baso % (Auto) 0.1 Absolute Neuts (auto) 15.4 H Absolute Lymphs (auto) 0.92 Nucleated RBC % 0 Sodium Potassium Chloride Carbon Dioxide Anion Gap BUN Creatinine Estim Creat Clear Calc Est GFR (MDRD) Af Amer Est GFR (MDRD) Non-Af BUN/Creatinine Ratio Glucose Calcium Phosphorus Magnesium Total Bilirubin AST ALT Alkaline Phosphatase Troponin I < 0.015 Total Protein Albumin Globulin Albumin/Globulin Ratio Procalcitonin < 0.04 05/03/20 05/04/20 05/04/20 03:15 05:45 05:45 WBC 13.3 H RBC 3.52 L Hgb 11.3 L Hct 35.4 L MCV 100.6 H MCH 32.1 H MCHC 31.9 L RDW Std Deviation 58.0 H RDW Coeff of Tera 15.7 H Plt Count 281 MPV 9.3 Immature Gran % (Auto) 0.600 Neut % (Auto) 90.5 H Lymph % (Auto) 4.5 L Crockett % (Auto) 4.1 Eos % (Auto) 0.2 Baso % (Auto) 0.1 Absolute Neuts (auto) 12.1 H Absolute Lymphs (auto) 0.60 L Nucleated RBC % 0 Sodium 127 L 134 L Potassium 4.4 4.4 Chloride 93 L 97 L Carbon Dioxide 28.0 31.0 Anion Gap 6 6 BUN 19 H 19 H Creatinine 0.78 0.83 Estim Creat Clear Calc 57.52 69.30 Est GFR (MDRD) Af Amer 122 113 Est GFR (MDRD) Non-Af 100 94 BUN/Creatinine Ratio 24.3 H 22.9 H Glucose 169 H 141 H Calcium 8.6 8.6 Phosphorus 3.1 4.4 Magnesium 1.9 2.3 Total Bilirubin 0.30 AST 12 L ALT 19 Alkaline Phosphatase 52 Troponin I Total Protein 6.7 Albumin 3.2 Globulin 3.5 Albumin/Globulin Ratio 0.9 Procalcitonin Microbiology 05/02/20 04:16 Sputum, Expectorated/Coughed Gram Stain - Final 05/02/20 04:16 Sputum, Expectorated/Coughed Respiratory Culture - Preliminary Appears to be normal respiratory lizz. Further studies to follow. 05/02/20 00:15 Mucosa - Nasopharyngeal Respiratory Panel (PCR) - Final 05/02/20 05:30 Urine Catheter - Catheter Streptococcus pneumoniae Antigen (M - Final 05/02/20 05:30 Urine Catheter - Catheter Legionella Antigen - Final Medical Necessity - Tobacco Use Smoking Status: Former smoker Tobacco Use: Cigarettes Assessment/Plan All Active Problems (Last Reviewed 08/07/19 @ 09:35 by Chica Aguirre) Sepsis due to pneumonia (Acute) Community acquired pneumonia (Acute) Hypoxemia (Acute) UTI (urinary tract infection) (Acute) Pneumococcal pneumonia (Acute) Severe sepsis (Acute) Shortness of breath (Acute) COPD exacerbation (Acute) Fall at home (Resolved) Hyponatremia (Resolved) RECOMMENDATIONS: 1. Attempt to minimize BiPAP therapy. Goal to maintain oxygen saturations at or above 90%. 2. Continue scheduled bronchodilator therapy. Wean IV steroids. 3. Continue empiric antimicrobials, pending infectious work-up. 4. Hold on thoracentesis for now 5. Gentle IV fluid hydration, given n.p.o. status. 6. CIWA protocol. Continue with phenobarbital wean. 7. Potential transfer from the intensive care unit later today. IMPRESSIONS: 1. Acute on chronic hypoxemic respiratory failure The patient has an apparent history of COPD of unknown severity, having never been evaluated by non destructive tester or having completed pulmonary function studies. He does have an apparent baseline supplemental oxygen requirement of 4 L/min. His x-rays certainly concerning for a potential right lower lobe pneumonia. Therefore, it is reasonable to continue antimicrobials, bronchodilators. Will attempt to wean steroids. Patient does appear to have a right lower lobe infiltrate with associated effusion on CT scan. Increase activity as tolerated 2. Hyponatremia Unclear if this is chronic or not. Patient has been on IV hydration overnight and this is unchanged compared to previous. Do not believe patient is currently having delirium secondary to the hyponatremia. Would not recommend 3% saline 3. Chronic alcohol dependency with active withdrawal Patient has been started on the CIWA protocol. Patient is on folate, thiamine and multivitamin. Patient has not required significant Ativan or Haldol for agitation. Continue with phenobarbital wean. 4. History of tobacco dependency/paroxysmal atrial fibrillation/hypertension/hyperlipidemia/anemia Complicates care, management, recovery and prognosis. Continue home medications as indicated. Physical therapy will need to evaluate the patient. Inpatient E&M: 36385 Subs Hosp L3
[2020-05-04] MEDS: Ipratropium/Albuterol Sulfate 3 ML AMPUL.NEB INHALATION ×4 (06:48→19:05)
--- NOTE | 2020-05-04 07:32 | PCM.PN.HOSP ---
Reason for Visit: Follow-up for alcohol withdrawal syndrome. Objective: Patient is currently sleeping. On phenobarbitone. He wakes up intermittently. Afebrile. Heart rate and blood pressure controlled. Currently on 4 L of oxygen. Physical exam General: Drowsy, lethargic and sleepy. On oxygen through nasal cannula HEENT: Atraumatic, PERRLA, EOMI, Normocephalic Oral: No Gingival or Mucosal Lesions/ Ulcerations Neck: Supple, No JVD, Negative Carotid Bruits Lungs: Air entry diminished in bilateral lung. Bilateral expiratory rhonchi. Cardiovascular: Irregular rate and rhythm, Normal S1, Normal S2, No murmurs Abdomen: Bowel Sounds Present, Soft, Non Tender, nondistended : No renal angle tenderness. No suprapubic tenderness. Weber catheter present. Extremities: No edema, Capillary Refill Less than 3 Seconds Skin: No rashes, No breakdown Musculoskeletal: No Tenderness to Palpation of Joints or Extremities Neurological: Cranial nerves II-XII grossly intact, Deep Tendon Reflexes 2+/4 and Symmetrical, sometimes shaking of bilateral upper extremities Psych/Mental Status: On phenobarbitone. Drowsiness lethargic. Vitals/I&O's: Vital Signs Temp Pulse Resp BP Pulse Ox 97.6 F L 67 16 159/90 H 100 05/04/20 06:00 05/04/20 07:00 05/04/20 07:00 05/04/20 07:00 05/04/20 07:00 Oxygen Flow Rate (L/min) 4 Oxygen Delivery Method Nasal Cannula Weight: 178 lb 9.191 oz Body Mass Index (BMI) 25.3 Intake and Output for Last 24 Hours 05/02/20 05/03/20 05/04/20 23:59 23:59 23:59 Intake Total 3711.66 / 3951.66 1006.67 / 1006.67 Output Total 1900 / 2200 2850 / 2850 750 / 750 Balance 1811.66 / 1751.66 -1843.33 / -1843.33 -750 / -750 Microbiology Past 72 Hours 05/02/20 04:16 Sputum, Expectorated/Coughed Gram Stain - Final 05/02/20 04:16 Sputum, Expectorated/Coughed Respiratory Culture - Preliminary Appears to be normal respiratory lizz. Further studies to follow. 05/02/20 00:15 Mucosa - Nasopharyngeal Respiratory Panel (PCR) - Final 05/02/20 05:30 Urine Catheter - Catheter Streptococcus pneumoniae Antigen (M - Final 05/02/20 05:30 Urine Catheter - Catheter Legionella Antigen - Final Laboratory Results 05/04/20 05:45: WBC 13.3 H, RBC 3.52 L, Hgb 11.3 L, Hct 35.4 L, MCV 100.6 H, MCH 32.1 H, MCHC 31.9 L, RDW Std Deviation 58.0 H, RDW Coeff of Tera 15.7 H, Plt Count 281, MPV 9.3, Immature Gran % (Auto) 0.600, Neut % (Auto) 90.5 H, Lymph % (Auto) 4.5 L, Nance % (Auto) 4.1, Eos % (Auto) 0.2, Baso % (Auto) 0.1, Absolute Neuts (auto) 12.1 H, Absolute Lymphs (auto) 0.60 L, Nucleated RBC % 0 05/04/20 05:45: Sodium 134 L, Potassium 4.4, Chloride 97 L, Carbon Dioxide 31.0, Anion Gap 6, BUN 19 H, Creatinine 0.83, Estim Creat Clear Calc 69.30, Est GFR (MDRD) Af Amer 113, Est GFR (MDRD) Non-Af 94, BUN/Creatinine Ratio 22.9 H, Glucose 141 H, Calcium 8.6, Phosphorus 4.4, Magnesium 2.3, Total Bilirubin 0.30, AST 12 L, ALT 19, Alkaline Phosphatase 52, Total Protein 6.7, Albumin 3.2, Globulin 3.5, Albumin/Globulin Ratio 0.9 Current Medications Acetaminophen (Tylenol) 650 mg PO Q6H PRN PRN PRN Reason: Pain Score 1-10/Temp > 100.7 F Al Hydroxide/Mg Hydroxide (Mylanta Ii) 30 ml PO Q6H PRN PRN PRN Reason: Gastric Burning Albuterol Sulfate (Ventolin Aerosols) 2.5 mg INHALATION Q2H PRN PRN PRN Reason: Dyspnea, wheezing Last Admin: 05/02/20 04:14 Dose: 2.5 mg Documented by: Albuterol/Ipratropium (Duoneb) 3 ml INHALATION Q4HWA.RT RYANN Last Admin: 10/13/20 06:48 Dose: 3 ml Documented by: Aspirin (Aspirin, Baby) 81 mg PO DAILY@0800 [facility] Last Admin: 05/03/20 12:09 Dose: 81 mg Documented by: Dicyclomine HCl (Bentyl) 20 mg PO Q6H PRN PRN PRN Reason: abdominal discomfort Enoxaparin Sodium (Lovenox) 40 mg SC DAILY [facility] Last Admin: 05/03/20 12:09 Dose: 40 mg Documented by: Famotidine (Pepcid) 20 mg PO BID [facility] Last Admin: 05/03/20 21:24 Dose: 20 mg Documented by: Folic Acid (Folic Acid) 1 mg PO DAILY@0800 [facility] Stop: 05/04/20 08:01 Last Admin: 05/02/20 09:04 Dose: 1 mg Documented by: Gabapentin (Neurontin) 300 mg PO Q8H PRN PRN PRN Reason: moderate to severe anxiety Guaifenesin (Robitussin) 20 ml PO Q4H PRN PRN PRN Reason: COUGH Hydroxyzine Pamoate (Vistaril Pamoate Capsule) 50 mg PO Q4H PRN PRN PRN Reason: mild anxiety Last Admin: 05/03/20 06:07 Dose: 50 mg Documented by: Azithromycin 500 mg/ Dextrose 255 mls @ 250 mls/hr IV Q24H [facility] Last Infusion: 05/03/20 22:27 Dose: Infused Documented by: Ceftriaxone Sodium 2 gm/ (Sodium Chloride) 50 mls @ 100 mls/hr IV Q24H [facility] Last Infusion: 05/03/20 21:32 Dose: Infused Documented by: Sodium Chloride () 250 mls @ 15 mls/hr IV .[id number] PRN PRN Reason: Saline Flush Loperamide HCl (Imodium) 2 mg PO Q4H PRN PRN PRN Reason: LOOSE STOOLS Lorazepam (Ativan) 2 mg PO Q2H PRN PRN; Protocol PRN Reason: CIWA score > 8 but <15 Lorazepam (Ativan) 2 mg PO UD PRN; Protocol PRN Reason: CIWA score >/=15. Lorazepam (Ativan) 2 mg IV Q2H PRN PRN; Protocol PRN Reason: CIWA score > 8 but <15 Last Admin: 05/03/20 01:48 Dose: 2 mg Documented by: Lorazepam (Ativan) 2 mg IV UD PRN; Protocol PRN Reason: CIWA score >/=15. Last Admin: 05/03/20 16:48 Dose: 2 mg Documented by: Magnesium Hydroxide (Milk Of Magnesia) 30 ml PO DAILY PRN PRN PRN Reason: Constipation Melatonin (Melatonin) 3 mg PO QHS PRN PRN PRN Reason: INSOMNIA Methylprednisolone (Methylprednisolone 40 Mg/Ml Vial) 40 mg IV Q12 [facility] Metoprolol Tartrate (Lopressor (Beta Miky)) 25 mg PO BID [facility] Last Admin: 05/03/20 21:24 Dose: Not Given Documented by: Multivitamins/Minerals ([facility]ivitamin With Minerals (Bkc)) [facility] Last Admin: 05/03/20 12:09 Dose: 1 tablet Documented by: Nitroglycerin (Nitrostat) 0.4 mg SUBLINGUAL Q5M PRN PRN Reason: CARDIAC/CHEST PAIN Ondansetron HCl (Zofran) 4 mg IV Q8H PRN PRN PRN Reason: NAUSEA/VOMITING Phenobarbital (Phenobarbital) 97.2 mg PO Q4H [facility]; Taper Stop: 05/07/20 13:29 Last Admin: 05/04/20 05:41 Dose: 97.2 mg Documented by: Prochlorperazine Edisylate (Compazine Iv) 5 mg IV Q4H PRN PRN PRN Reason: Breakthrough nausea/vomiting Psyllium Hydrophilic Mucilloid (Metamucil) 1 packet PO DAILY PRN PRN PRN Reason: Constipation Senna/Docusate Sodium (Senokot-S, Samara-Colace) 2 tablet PO BID PRN PRN PRN Reason: Constipation Sodium Chloride () 10 - 40 ml IV UD PRN PRN Reason: SALINE FLUSH Last Admin: 05/04/20 05:41 Dose: 30 ml Documented by: Thiamine HCl ([facility]itamin B1) [facility] Stop: 05/04/20 17:01 Last Admin: 05/03/20 16:18 Dose: 100 mg Documented by: Throat Lozenges (Cepacol Sore Throat Lozenge) 1 lozenge MUCOUS MEM Q2H PRN PRN PRN Reason: SORE THROAT STROKE Vital Signs/Narrative: Vital Signs Temp Pulse Resp BP BP Pulse Ox 05/04/20 07:00 67 16 159/90 H 100 05/04/20 06:48 70 15 99 05/04/20 06:00 97.6 F L 88 30 H 145/90 H 98 05/04/20 05:00 97.7 F L 59 L 13 145/76 H 94 05/04/20 04:00 97.9 F 69 17 143/75 H 91 Medical Necessity - Tobacco Use Smoking Status: Former smoker Tobacco Use: Cigarettes Assessment/Plan All Active Problems (Last Reviewed 08/07/19 @ 09:35 by Chica Aguirre) Sepsis due to pneumonia (Acute) Community acquired pneumonia (Acute) Hypoxemia (Acute) UTI (urinary tract infection) (Acute) Pneumococcal pneumonia (Acute) Severe sepsis (Acute) Shortness of breath (Acute) COPD exacerbation (Acute) Fall at home (Resolved) Hyponatremia (Resolved) This is a 85-year-old male admitted with shortness of breath, dyspnea, pleuritic chest pain and hypoxia and abnormal chest x-ray finding. 1. Acute on chronic hypoxic respiratory failure with history of COPD: Patient on baseline 4 L of home oxygen. Chest x-ray independently reviewed and suggestive of patchy right lower lobe infiltrate and nodule and discussed with the lump maker. Continue IV antibiotic, bronchodilator, IV Solu-Medrol, Mucinex and NIPPV respiratory support. Sent on BiPAP 30% FiO2. ABG 7.43/41/104 on BiPAP 35%. 05/03: BiPAP for rescue. Currently on oxygen through nasal cannula. 2. COPD exacerbation most probably secondary to most probable right lower lobe community-acquired pneumonia: As mentioned above. On IV ceftriaxone and azithromycin. 05/03: Chest CT scan was done which shows right lower lobe consolidation with small pleural effusion suggesting pneumonia. 6.9 mm subpleural nodule in the lateral left lower lobe, new. Follow-up chest CT scan in 3 months as per Fleischner guidelines. Continue antibiotic. Sputum culture appears normal respiratory lizz. Urinary antigens and respiratory panel are negative. Blood cultures x2 are pending. COVID-19 PCR negative. 05/04: 3. Chronic hyponatremia: Patient baseline sodium varies between 127-132 most probably secondary to chronic alcohol use. Patient is isovolumic Sodium is stable 127 for last 3 days. 05/04: Sodium is improved. Wean off IV Solu-Medrol. 4. Chronic alcohol use alcohol withdrawal: On CIWA protocol, thiamine and folic acid. Patient has bilateral upper extremity resting tremors with abrupt onset. He says it is chronic for at least 3 to 4 years most probably secondary to chronic alcohol use. Not consistent with a pattern of basal ganglia or Parkinson's disease 05/03: Acute alcohol withdrawal syndrome: On phenobarbital based supportive medication. 5. Paroxysmal A. fib: On monitor worker patient is A. fib. Heart rate fluctuates between 80 to 100/min. Started on metoprolol 25 mg twice daily. Patient not on anticoagulation at home. 6. Other chronic comorbidities include hypertension, dyslipidemia, hypothyroidism, chronic normocytic anemia and history of smoking: Multiple comorbidities complicates the present care and expect difficult and delay recovery. PT and OT CODE STATUS: Full code. Discussed by nighttime hospitalist. Inpatient E&M: 27006 Subs Hosp L3
--- NOTE | 2020-05-04 10:13 | CASEMGMT ---
Addendum entered by Chel Hutchins 05/04/20 10:56: Pt had stated that he was also agreeable to receiving ETOH resources. SW will provide pt with resources. Original Note: Social Work Assessment SW spoke with RN, pt is more alert today, able to hold conversation. SW met with pt to complete initial assessment. SW introduced self and role at [facility]. Pt is alert and orientated. Pt states that he lives with his oldest son but he is not at home a lot so sometimes pt is home alone. Pt states it is a one story home. Pt states that he was independent with ADLs. Pt states he has walker and wheelchair at home. PCP is Dr. Hennessy and Pharmacy is [facility]. Pt states he still drives. Substance Abuse Hx: Pt confirms that he drinks beers. Pt states it could be a couple beers a day or sometimes more. Pt states he drives himself to get the beer. Pt then states that his youngest son has his truck though. HCPOA: Pt denied LW: Pt denied Pt confirms that he has been to [facility] before. Per chart review, pt was discharged to [facility] on 05/19/2019. Pt states that he thinks he's had HHC before but unable to recall. Pt states he wishes to return home at discharge but then states he would be agreeable to returning to [facility] if recommended. Per previous notes, pt's daughter Cassandra would like him placed at SNF. Pt gave this worker permission to calling his daughter Cassandra. SW attempted to call pt's daughter Cassandra, no answer, SW left message. Plan: Pt will need to work with PT/OT. Home vs [facility]. Chel Hutchins GRAPE CUTTER, COKE CRUSHER OPERATOR
[2020-05-04] MEDS: Aspirin 81 MG TAB.CHEW PO (10:54)
[2020-05-04] MEDS: Metoprolol Tartrate 25 MG Tablet PO ×2 (10:55→21:09)
[2020-05-04] MEDS: Multivitamins,Ther W-Minerals Tablet 1 TABLET PO (10:55)
[2020-05-04] MEDS: Folic Acid 1 MG Tablet PO (10:55)
[2020-05-04] MEDS: Enoxaparin 40 MG/0.4 ML Syringe SC (10:55)
[2020-05-04] MEDS: Thiamine Hydrochloride 100 MG Tablet PO ×2 (10:55→17:26)
[2020-05-04] MEDS: Famotidine 20 MG Tablet PO ×2 (10:56→21:09)
--- NOTE | 2020-05-04 14:56 | CASEMGMT ---
Social Work Note SONAL met back with pt and provided pt with ETOH resources. Pt alert and orientated x3. Pt states that he uses oxygen at home, 4 Liters, and he thinks it is through [employer]. SW spoke with pt regarding discharge plans. Pt again states he wishes to discharge home. Pt confirms again that he has been to [facility] before and if SNF is needed, he would prefer to return to [facility]. SW informed pt that SW and MARILOU DRIVER will continue to follow with pt and continue discussion of discharge plans. Pt states understanding. SONAL and MARILOU DRIVER to continue to follow. Plan: TBD. Pending course of treatment. Home vs [facility] Chel Hutchins MATCHER OFFBEARER, TRACTOR DRIVER TEAMSTER
[2020-05-05] VITALS (13 sets, daily range): BP systolic 128–158; BP diastolic 77–89; PULSE 73–90; RESP 16–22; TEMP 36.3–36.8; O2SAT 95–99
[2020-05-05] MEDS: Phenobarbital 32.4 MG Tablet PO ×5 (01:33→18:45)
[2020-05-05] MEDS: Ipratropium/Albuterol Sulfate 3 ML AMPUL.NEB INHALATION ×4 (07:20→20:07)
[2020-05-05] MEDS: Multivitamins,Ther W-Minerals Tablet 1 TABLET PO (08:32)
[2020-05-05] MEDS: Metoprolol Tartrate 25 MG Tablet PO ×2 (08:32→20:30)
[2020-05-05] MEDS: Aspirin 81 MG TAB.CHEW PO (08:32)
[2020-05-05] MEDS: Enoxaparin 40 MG/0.4 ML Syringe SC (08:33)
[2020-05-05] MEDS: Famotidine 20 MG Tablet PO ×2 (08:33→20:31)
--- NOTE | 2020-05-05 09:17 | PCM.PN.INT ---
Subjective: Patient transferred out of the intensive care unit yesterday. Patient is reporting improvement in overall condition. Patient tolerated breakfast without difficulty. Patient is on supplemental oxygen at baseline, but requirements did improve overnight. General: Alert, Oriented x3, Cooperative, No apparent distress, - - Significant tremor noted, but reportedly baseline. HEENT: Atraumatic, PERRLA, EOMI, Normocephalic, - - No scleral injection or icterus noted Oral: Moist Mucosa, No Gingival or Mucosal Lesions/ Ulcerations Neck: Supple, No JVD, No Nodes, Trachea Midline Lungs: No rhonchi, No rales, Diminished, Wheezes - Sporadic Cardiovascular: Normal S1, Normal S2, No murmurs, Irregular Rate, No rub noted, No Gallop Abdomen: Bowel Sounds Present, Soft, Non Tender, Non-Distended Extremities: No clubbing, No cyanosis, Edema Skin: - - No change compared to previous Musculoskeletal: No Tenderness to Palpation of Joints or Extremities Lymphatic: No Cervical, Supraclavicular, or Inguinal Adenopathy Neurological: Cranial nerves II-XII grossly intact, Neuro grossly intact, - - Tremor appears to be consistent. Psych/Mental Status: Normal Affect, Appropriate Vital Signs Temp Pulse Resp BP Pulse Ox 36.3 C L 73 16 156/88 H 96 05/05/20 07:37 05/05/20 08:32 05/05/20 07:37 05/05/20 07:37 05/05/20 07:37 Oxygen Flow Rate (L/min) 2 Oxygen Delivery Method Nasal Cannula Weight: 82.4 kg Body Mass Index (BMI) 25.3 Intake and Output for Last 24 Hours 05/03/20 05/04/20 05/05/20 23:59 23:59 23:59 Intake Total 1006.67 / 1006.67 1514 / 1514 240 / 240 Output Total 2850 / 2850 1625 / 1625 1600 / 1600 Balance -1843.33 / -1843.33 -111 / -111 -1360 / -1360 Labs (Last 48 Hours) 05/04/20 05/04/20 05:45 05:45 WBC 13.3 H RBC 3.52 L Hgb 11.3 L Hct 35.4 L MCV 100.6 H MCH 32.1 H MCHC 31.9 L RDW Std Deviation 58.0 H RDW Coeff of Tera 15.7 H Plt Count 281 MPV 9.3 Immature Gran % (Auto) 0.600 Neut % (Auto) 90.5 H Lymph % (Auto) 4.5 L Rowan % (Auto) 4.1 Eos % (Auto) 0.2 Baso % (Auto) 0.1 Absolute Neuts (auto) 12.1 H Absolute Lymphs (auto) 0.60 L Nucleated RBC % 0 Sodium 134 L Potassium 4.4 Chloride 97 L Carbon Dioxide 31.0 Anion Gap 6 BUN 19 H Creatinine 0.83 Estim Creat Clear Calc 69.30 Est GFR (MDRD) Af Amer 113 Est GFR (MDRD) Non-Af 94 BUN/Creatinine Ratio 22.9 H Glucose 141 H Calcium 8.6 Phosphorus 4.4 Magnesium 2.3 Total Bilirubin 0.30 AST 12 L ALT 19 Alkaline Phosphatase 52 Total Protein 6.7 Albumin 3.2 Globulin 3.5 Albumin/Globulin Ratio 0.9 Microbiology 05/02/20 04:16 Sputum, Expectorated/Coughed Gram Stain - Final 05/02/20 04:16 Sputum, Expectorated/Coughed Respiratory Culture - Final 05/02/20 00:15 Blood Culture (Wb) #2 - Left Hand Blood Culture - Preliminary No growth in 48 hours. 05/01/20 23:50 Blood Culture (Wb) - Anticubital Left Blood Culture - Preliminary No growth in 48 hours. Medical Necessity - Tobacco Use Smoking Status: Former smoker Tobacco Use: Cigarettes Assessment/Plan All Active Problems (Last Reviewed 08/07/19 @ 09:35 by Chica Aguirre) Sepsis due to pneumonia (Acute) Community acquired pneumonia (Acute) Hypoxemia (Acute) UTI (urinary tract infection) (Acute) Pneumococcal pneumonia (Acute) Severe sepsis (Acute) Shortness of breath (Acute) COPD exacerbation (Acute) Fall at home (Resolved) Hyponatremia (Resolved) RECOMMENDATIONS: 1. Attempt to minimize BiPAP therapy. Goal to maintain oxygen saturations at or above 90%. 2. Continue scheduled bronchodilator therapy. Okay to transition to prednisone and wean over the next 12 to 14 days 3. Consider transition to p.o. antibiotics to complete a 7-day course 4. Hold on thoracentesis for now 5. Discontinue IV fluids 6. CIWA protocol. Complete phenobarbital wean. 7. Discharge planning IMPRESSIONS: 1. Acute on chronic hypoxemic respiratory failure The patient has an apparent history of COPD of unknown severity, having never been evaluated by transport corps officer or having completed pulmonary function studies. He does have an apparent baseline supplemental oxygen requirement of 4 L/min. His x-rays certainly concerning for a potential right lower lobe pneumonia. Therefore, it is reasonable to continue antimicrobials, bronchodilators. We will transition over to prednisone. This can be weaned over the next 12 to 14 days.. Patient does appear to have a right lower lobe infiltrate with associated effusion on CT scan. Increase activity as tolerated 2. Hyponatremia Unclear if this is chronic or not. This was almost normalized yesterday. Not likely necessary to recheck labs today. Patient appears to be at baseline mentation. 3. Chronic alcohol dependency with active withdrawal Patient has been started on the CIWA protocol. Patient is on folate, thiamine and multivitamin. Patient has not required significant Ativan or Haldol for agitation. Complete phenobarbital wean. Encourage alcohol cessation. 4. History of tobacco dependency/paroxysmal atrial fibrillation/hypertension/hyperlipidemia/anemia Complicates care, management, recovery and prognosis. Continue home medications as indicated. Physical therapy will need to evaluate the patient. Inpatient E&M: 24152 Subs Hosp L2
[2020-05-05] MEDS: predniSONE 20 MG Tablet 40 MG PO (12:20)
--- NOTE | 2020-05-05 13:33 | NURSING ---
pt left for swallow study
--- NOTE | 2020-05-05 14:17 | CASEMGMT ---
SW spoke with patient. Introduced self and role at [facility]. SW explained to patient that it is being recommended that he go somewhere for short term rehab. SW asked him about going to [facility] since he has been there before. He said he would go, but not for a long time. SW faxed referral to [facility] and will call as well. Zahra RODRIGUEZ MSW
--- NOTE | 2020-05-05 14:42 | SP.MBSS_ITS ---
Modified Barium Swallow - Patient Information Study Date: 05/05/20 Study Time: 14:00 Direct Billable Minutes: 60 Total Minutes procedure & reportin Diagnosis: Dysphagia (R13.12) Referring Physician: Alexys Woo Reason for Referral: The patient is an 85 year old male referred for a modified barium swallow (MBS) study to objectively assess the Patients oropharyngeal swallow function under fluoroscopy secondary to reported concerns for silent aspiration at bedside, currently admitted to [facility] secondary to right lower lobe pneumonia. Medical History: Chronic obstructive pulmonary disorder, prior respiratory failure with hypoxemia, alcohol abuse, chronic tremor, atrial fibrillation, hyponatremia, tobacco dependence, hypothyroidism, anemia, frequent urinary tract infections, sepsis. - Penetration-Aspiration Scale Score Thin Liquid via teaspoon Result: 5= enters airways/contacts vocal folds/not ejected Thin Liquid Result: 3= enters airways/above vocal folds/not ejected Thin Liquid Trial 2 Result: 1= does not enter airway Comment: straw Thin Liquid Trial 3 Result: 2= enter airway/above vocal folds/ejected Comment: straw Thin Liquid Trial 4 Result: 1= does not enter airway Comment: straw Pudding Result: 2= enter airway/above vocal folds/ejected Thin Liquid Trial 5 Result: 3= enters airways/above vocal folds/not ejected Comment: straw [place] Thick Liquid Result: 2= enter airway/above vocal folds/ejected Comment: straw [place] Thick Liquid Trial 2 Result: 1= does not enter airway Comment: straw [place] Thick Liquid Trial 3 Result: 2= enter airway/above vocal folds/ejected Comment: straw - Oral Phase Labial Seal: Escape beyond mid-chin Tongue Control During Bolus Hold: Posterior escape of greater than half of bolus Bolus Transport/Lingual Motion: Brisk tongue motion Oral Residue: Residue collection on oral structures - Pharyngeal Phase Initiation of Pharyngeal Swallow: Bolus head in pyriforms Soft Palate Elevation: No bolus between soft palate and pharyngeal wall Laryngeal Elevation: Partial superior movement thyroid cart/partial apprx aryt- epig petiole Anterior Hyoid Excursion: Partial anterior movement Epiglottic Movement: Partial inversion Laryngeal Vestibule Closure at Height of Swallow: Incomplete; narrow column of air/contrast in laryngeal vestibule Pharyngeal Stripping Wave: Present - diminished Pharyngoesophageal Segment Opening: Parital distension and partial duration; parital obstruction of flow Tongue Base Retraction: Narrow column of contrast between tongue base & post. pharyngeal wall Pharyngeal Residue: Collection of residue within or on pharyngeal structures - Esophageal Phase Esophageal Clearance: Complete clearance - Diagnosis/Impression Diagnosis: Dysphagia (R13.12) Impression: The Patient presents with mild to moderate oropharyngeal dysphagia (DSRS: 3; DCS: D1) with penetration and inconsistent ejection with thin and nectar thickened liquids. No discernable difference regarding tolerance between trials of thin and nectar thickened liquids. No aspiration appreciated throughout trials, unable to definitively rule out silent aspiration. I would consider him to be at an elevated risk of aspiration when considering the diagnosis of chronic obstructive pulmonary disease and the higher prevalence of a disrupted E-S-E pattern as intake progresses and oxygenation is disrupted during intake; clinical assessment would be sufficient to determine the extent and impact of this factor, as it is difficult to assess given the limitations (time) that fluoroscopic assessments present. Alertness / mentation would also be a confounding factor when considering tolerance, along with poor positioning, as positioning below 90 degrees will exacerbate his bolus containment issues and result in a higher incidence of premature posterior bolus loss and resulting pre-prandial penetration and possible aspiration. Frequent premature posterior bolus loss of thin and nectar thickened liquids resulting in pre-prandial penetration, pharyngeal phase dyssynchrony also contributing to prandial penetration events. Reduced hyolaryngeal excursion and duration contributing to inconsistent laryngeal vestibule pressure generated to expel penetrated material. Mild pharyngeal dysmotility with retrograde reflux from the pharyngoesophageal segment relaxation back to the pyriform sinus, though not significant enough to backflow into the laryngeal vestibule. He was unable to sufficiently follow directions to allow for compensatory measure implementation. Solid textures held out of concern for his mentation, ability to follow directions, and his edentulous status, with risks outweighing benefits. Small non-obstructive cricopharyngeal bar located at the C-6 level. - Recommendations Comment: DIET TEXTURE RECOMMENDATIONS: pureed textured (IDDSI: 4), thin liquid diet (IDDSI: 0) diet RECOMMENDED COMPENSATORY STRATEGIES: direct supervision with assistance as needed, reduced bolus volume / rate of ingestion, seated upright at 90 degrees during PO intake, remain upright for 30-60 minutes post meal (GERD precaution) Need for Skilled Speech Therapy Services: Yes Education Completed: 1. Described result of evaluation., 7. Pt requires further education on strategies & risks. - Image Count: [phone] - Status Active ST Patient: Active - Contact Information [facility] Speech Therapy:: He Drummond M.A., CCC-PHYSIOTHERAPY ASSISTANT, CBIS MBSImP Certified, LSVT Certified [facility] Speech-Language Pathology Department Email: [email or web address]
--- NOTE | 2020-05-05 17:45 | PN_ITS ---
Subjective: Patient was seen and examined today, he decided this afternoon that he would consent to go to a shelter facility for inpatient rehab services. Patient had a cookie swallow exam today which showed mild to moderate oropharyngeal dysphagia. Patient has no complaints of any chest pain or shortness of breath at this time, his speech is hard to understand at times. - Physical Exam Vitals/I&O's: Vital Signs Temp Pulse Resp BP Pulse Ox 97.7 F L 97 16 158/89 H 99 05/05/20 14:22 05/05/20 15:15 05/05/20 14:22 05/05/20 14:22 05/05/20 14:22 Oxygen Flow Rate (L/min) 2 Oxygen Delivery Method Room Air Weight: 82.4 kg Body Mass Index (BMI) 25.3 Intake and Output for Last 24 Hours 05/03/20 05/04/20 05/05/20 23:59 23:59 23:59 Intake Total 1006.67 / 1006.67 1514 / 1514 790 / 790 Output Total 2850 / 2850 1625 / 1625 2250 / 2250 Balance -1843.33 / -1843.33 -111 / -111 -1460 / -1460 General: Alert, Oriented x3, Cooperative, No apparent distress, Well developed HEENT: Atraumatic, PERRLA, EOMI, Normocephalic Oral: Moist Mucosa Neck: Supple, No JVD, Trachea Midline, Thyroid Normal Size and Texture Lungs: Clear to auscultation, Normal air movement, No rhonchi, No wheeze, No rales Cardiovascular: Regular rate, No murmurs Abdomen: Bowel Sounds Present, Soft, Non Tender, Non-Distended Extremities: No clubbing, No cyanosis, Capillary Refill Less than 3 Seconds Skin: No rashes, No breakdown Musculoskeletal: No Tenderness to Palpation of Joints or Extremities Neurological: Cranial nerves II-XII grossly intact, Neuro grossly intact, Sensory exam intact to light touch and pain Psych/Mental Status: Normal Affect, Appropriate Microbiology Past 72 Hours 05/02/20 04:16 Sputum, Expectorated/Coughed Gram Stain - Final 05/02/20 04:16 Sputum, Expectorated/Coughed Respiratory Culture - Final 05/02/20 00:15 Blood Culture (Wb) #2 - Left Hand Blood Culture - Preliminary No growth in 48 hours. 05/01/20 23:50 Blood Culture (Wb) - Anticubital Left Blood Culture - Preliminary No growth in 48 hours. Current Medications Acetaminophen (Tylenol) 650 mg PO Q6H PRN PRN PRN Reason: Pain Score 1-10/Temp > 100.7 F Al Hydroxide/Mg Hydroxide (Mylanta Ii) 30 ml PO Q6H PRN PRN PRN Reason: Gastric Burning Albuterol Sulfate (Ventolin Aerosols) 2.5 mg INHALATION Q2H PRN PRN PRN Reason: Dyspnea, wheezing Last Admin: 05/02/20 04:14 Dose: 2.5 mg Documented by: Albuterol/Ipratropium (Duoneb) 3 ml INHALATION Q4HWA.RT [facility] Last Admin: 05/05/20 15:12 Dose: 3 ml Documented by: Aspirin (Aspirin, Baby) 81 mg PO DAILY@0800 [facility] Last Admin: 05/05/20 08:32 Dose: 81 mg Documented by: Dicyclomine HCl (Bentyl) 20 mg PO Q6H PRN PRN PRN Reason: abdominal discomfort Enoxaparin Sodium (Lovenox) 40 mg SC DAILY [facility] Last Admin: 05/05/20 08:33 Dose: 40 mg Documented by: Famotidine (Pepcid) 20 mg PO BID [facility] Last Admin: 05/05/20 08:33 Dose: 20 mg Documented by: Gabapentin (Neurontin) 300 mg PO Q8H PRN PRN PRN Reason: moderate to severe anxiety Guaifenesin (Robitussin) 20 ml PO Q4H PRN PRN PRN Reason: COUGH Hydroxyzine Pamoate (Vistaril Pamoate Capsule) 50 mg PO Q4H PRN PRN PRN Reason: mild anxiety Last Admin: 05/03/20 06:07 Dose: 50 mg Documented by: Azithromycin 500 mg/ Dextrose 255 mls @ 250 mls/hr IV Q24H [facility] Last Infusion: 05/04/20 23:17 Dose: Infused Documented by: Ceftriaxone Sodium 2 gm/ (Sodium Chloride) 50 mls @ 100 mls/hr IV Q24H [facility] Last Infusion: 05/04/20 21:39 Dose: Infused Documented by: Sodium Chloride () 250 mls @ 15 mls/hr IV .[id number] PRN PRN Reason: Saline Flush Last Infusion: 05/04/20 22:15 Dose: 0 mls/hr Documented by: Loperamide HCl (Imodium) 2 mg PO Q4H PRN PRN PRN Reason: LOOSE STOOLS Lorazepam (Ativan) 2 mg PO Q2H PRN PRN; Protocol PRN Reason: CIWA score > 8 but <15 Lorazepam (Ativan) 2 mg PO UD PRN; Protocol PRN Reason: CIWA score >/=15. Lorazepam (Ativan) 2 mg IV Q2H PRN PRN; Protocol PRN Reason: CIWA score > 8 but <15 Last Admin: 05/03/20 01:48 Dose: 2 mg Documented by: Lorazepam (Ativan) 2 mg IV UD PRN; Protocol PRN Reason: CIWA score >/=15. Last Admin: 05/03/20 16:48 Dose: 2 mg Documented by: Magnesium Hydroxide (Milk Of Magnesia) 30 ml PO DAILY PRN PRN PRN Reason: Constipation Melatonin (Melatonin) 3 mg PO QHS PRN PRN PRN Reason: INSOMNIA Metoprolol Tartrate (Lopressor (Beta Miky)) 25 mg PO BID [facility] Last Admin: 05/05/20 08:32 Dose: 25 mg Documented by: Multivitamins/Minerals (Multivitamin With [facility] (B[facility])) [facility] Admin: 05/05/20 08:32 Dose: 1 tablet Documented by: Nitroglycerin (Nitrostat) 0.4 mg SUBLINGUAL Q5M PRN PRN Reason: CARDIAC/CHEST PAIN Ondansetron HCl (Zofran) 4 mg IV Q8H PRN PRN PRN Reason: NAUSEA/VOMITING Phenobarbital (Phenobarbital 32.4 Mg Tablet) 64.8 mg PO Q6H [facility]; Taper Stop: 05/07/20 13:29 Last Admin: 05/05/20 14:07 Dose: 64.8 mg Documented by: Prednisone (Prednisone 20 Mg Tablet) 40 mg PO DAILY@0800 [facility] Last Admin: 05/05/20 12:20 Dose: 40 mg Documented by: Prochlorperazine Edisylate (Compazine Iv) 5 mg IV Q4H PRN PRN PRN Reason: Breakthrough nausea/vomiting Psyllium Hydrophilic Mucilloid (Metamucil) 1 packet PO DAILY PRN PRN PRN Reason: Constipation Senna/Docusate Sodium (Senokot-S, Samara-Colace) 2 tablet PO BID PRN PRN PRN Reason: Constipation Sodium Chloride () 10 - 40 ml IV UD PRN PRN Reason: SALINE FLUSH Last Admin: 05/04/20 21:10 Dose: 10 ml Documented by: Throat Lozenges (Cepacol Sore Throat Lozenge) 1 lozenge MUCOUS MEM Q2H PRN PRN PRN Reason: SORE THROAT Medical Necessity - Tobacco Use Smoking Status: Former smoker Tobacco Use: Cigarettes Assessment/Plan All Active Problems (Last Reviewed 08/07/19 @ 09:35 by Chica Aguirre) Sepsis due to pneumonia (Acute) Community acquired pneumonia (Acute) Hypoxemia (Acute) UTI (urinary tract infection) (Acute) Pneumococcal pneumonia (Acute) Severe sepsis (Acute) Shortness of breath (Acute) COPD exacerbation (Acute) Fall at home (Resolved) Hyponatremia (Resolved) #1 acute on chronic hypoxic respiratory failure-continue to wean oxygen #2 COPD exacerbation secondary to community-acquired pneumonia-etiology unclear, transition to oral antibiotics tomorrow #3 chronic alcoholism with status post alcohol withdrawal #4 paroxysmal A. fib #5 essential hypertension #6 generalized weakness-again patient has consented to placement in a shelter facility for short-term rehab. #7 mild to moderate oropharyngeal dysphagia-speech therapy is following Inpatient E&M: 28232 Subs Hosp L2
[2020-05-06] VITALS (8 sets, daily range): BP systolic 140–158; BP diastolic 77–88; PULSE 65–85; RESP 18; TEMP 36.7–36.9; O2SAT 93–97
[2020-05-06] MEDS: Phenobarbital 32.4 MG Tablet PO ×2 (02:30→09:08)
[2020-05-06] MEDS: Enoxaparin 40 MG/0.4 ML Syringe SC (09:03)
[2020-05-06] MEDS: Metoprolol Tartrate 25 MG Tablet PO (09:03)
[2020-05-06] MEDS: Aspirin 81 MG TAB.CHEW PO (09:03)
[2020-05-06] MEDS: Multivitamins,Ther W-Minerals Tablet 1 TABLET PO (09:03)
[2020-05-06] MEDS: predniSONE 20 MG Tablet 40 MG PO (09:03)
[2020-05-06] MEDS: Famotidine 20 MG Tablet PO (09:03)
[2020-05-06] MEDS: Amox/Clavulanate 875 MG Tablet PO ×2 (09:08→16:44)
--- NOTE | 2020-05-06 09:52 | PCM.PN.PUL ---
Subjective: Patient did well overnight. No acute issues were reported. Patient did have a swallow study. Patient stated I am ready to go home. Patient does report that he has supplemental oxygen at home. Objective: Swallow study recommendations were reviewed. - Physical Exam Vitals/I&O's: Vital Signs Temp Pulse Resp BP Pulse Ox 36.8 C 74 18 158/88 H 97 05/06/20 08:51 05/06/20 09:03 05/06/20 08:51 05/06/20 09:03 05/06/20 08:51 Oxygen Flow Rate (L/min) 2 Oxygen Delivery Method Nasal Cannula Weight: 80.5 kg Body Mass Index (BMI) 25.3 Intake and Output for Last 24 Hours 05/04/20 05/05/20 05/06/20 23:59 23:59 23:59 Intake Total 1514 / 1514 1640 / 1640 Output Total 1625 / 1625 4050 / 4050 1750 / 1750 Balance -111 / -111 -2410 / -2410 -1750 / -1750 General: Alert, Cooperative, No apparent distress, - - No conversational dyspnea HEENT: Atraumatic, PERRLA, EOMI, Normocephalic, - - No scleral icterus or injection noted Oral: Moist Mucosa, No Gingival or Mucosal Lesions/ Ulcerations Neck: Supple, No JVD, No Nodes, Trachea Midline Lungs: No rhonchi, No wheeze, No rales, Diminished, - - Symmetric expansion. Cardiovascular: Normal S1, Normal S2, No murmurs, Irregular Rate, No rub noted, No Gallop Abdomen: Bowel Sounds Present, Soft, Non Tender, Non-Distended Extremities: No clubbing, No cyanosis, Edema Skin: - - No change compared to previous Musculoskeletal: No Tenderness to Palpation of Joints or Extremities Lymphatic: No Cervical, Supraclavicular, or Inguinal Adenopathy Neurological: Cranial nerves II-XII grossly intact, Neuro grossly intact, Motor Exam 5/5 strength throughout Psych/Mental Status: Normal Affect, Appropriate Microbiology Past 72 Hours 05/02/20 04:16 Sputum, Expectorated/Coughed Gram Stain - Final 05/02/20 04:16 Sputum, Expectorated/Coughed Respiratory Culture - Final 05/02/20 00:15 Blood Culture (Wb) #2 - Left Hand Blood Culture - Preliminary No growth in 48 hours. 05/01/20 23:50 Blood Culture (Wb) - Anticubital Left Blood Culture - Preliminary No growth in 48 hours. Current Medications Acetaminophen (Tylenol) 650 mg PO Q6H PRN PRN PRN Reason: Pain Score 1-10/Temp > 100.7 F Al Hydroxide/Mg Hydroxide (Mylanta Ii) 30 ml PO Q6H PRN PRN PRN Reason: Gastric Burning Albuterol Sulfate (Ventolin Aerosols) 2.5 mg INHALATION Q2H PRN PRN PRN Reason: Dyspnea, wheezing Last Admin: 05/02/20 04:14 Dose: 2.5 mg Documented by: Albuterol/Ipratropium (Duoneb) 3 ml INHALATION Q4HWA.RT [facility] Last Admin: 05/05/20 20:07 Dose: 3 ml Documented by: Amoxicillin/Clavulanate Potassium (Amox/Clavulanate 875 Mg Tablet) 875 mg PO BIDCM [facility] Last Admin: 05/06/20 09:08 Dose: 875 mg Documented by: Aspirin (Aspirin, Baby) 81 mg PO DAILY@0800 [facility] Last Admin: 05/06/20 09:03 Dose: 81 mg Documented by: Dicyclomine HCl (Bentyl) 20 mg PO Q6H PRN PRN PRN Reason: abdominal discomfort Enoxaparin Sodium (Lovenox) 40 mg SC DAILY [facility] Last Admin: 05/06/20 09:03 Dose: 40 mg Documented by: Famotidine (Pepcid) 20 mg PO BID [facility] Last Admin: 05/06/20 09:03 Dose: 20 mg Documented by: Gabapentin (Neurontin) 300 mg PO Q8H PRN PRN PRN Reason: moderate to severe anxiety Guaifenesin (Robitussin) 20 ml PO Q4H PRN PRN PRN Reason: COUGH Hydroxyzine Pamoate (Vistaril Pamoate Capsule) 50 mg PO Q4H PRN PRN PRN Reason: mild anxiety Last Admin: 05/03/20 06:07 Dose: 50 mg Documented by: Sodium Chloride () 250 mls @ 15 mls/hr IV .[id number] PRN PRN Reason: Saline Flush Last Infusion: 05/04/20 22:15 Dose: 0 mls/hr Documented by: Loperamide HCl (Imodium) 2 mg PO Q4H PRN PRN PRN Reason: LOOSE STOOLS Lorazepam (Ativan) 2 mg PO Q2H PRN PRN; Protocol PRN Reason: CIWA score > 8 but <15 Lorazepam (Ativan) 2 mg PO UD PRN; Protocol PRN Reason: CIWA score >/=15. Lorazepam (Ativan) 2 mg IV Q2H PRN PRN; Protocol PRN Reason: CIWA score > 8 but <15 Last Admin: 05/03/20 01:48 Dose: 2 mg Documented by: Lorazepam (Ativan) 2 mg IV UD PRN; Protocol PRN Reason: CIWA score >/=15. Last Admin: 05/03/20 16:48 Dose: 2 mg Documented by: Magnesium Hydroxide (Milk Of Magnesia) 30 ml PO DAILY PRN PRN PRN Reason: Constipation Melatonin (Melatonin) 3 mg PO QHS PRN PRN PRN Reason: INSOMNIA Metoprolol Tartrate (Lopressor (Beta Miky)) 25 mg PO BID [facility] Last Admin: 05/06/20 09:03 Dose: 25 mg Documented by: Multivitamins/Minerals (Multivitamin With Minerals (Bkc)) [facility] Last Admin: 05/06/20 09:03 Dose: 1 tablet Documented by: Nitroglycerin (Nitrostat) 0.4 mg SUBLINGUAL Q5M PRN PRN Reason: CARDIAC/CHEST PAIN Ondansetron HCl (Zofran) 4 mg IV Q8H PRN PRN PRN Reason: NAUSEA/VOMITING Phenobarbital (Phenobarbital 32.4 Mg Tablet) 64.8 mg PO Q6H [facility]; Taper Stop: 05/07/20 13:29 Last Admin: 05/06/20 09:08 Dose: 64.8 mg Documented by: Prednisone (Prednisone 20 Mg Tablet) 40 mg PO DAILY@0800 [facility] Last Admin: 05/06/20 09:03 Dose: 40 mg Documented by: Prochlorperazine Edisylate (Compazine Iv) 5 mg IV Q4H PRN PRN PRN Reason: Breakthrough nausea/vomiting Psyllium Hydrophilic Mucilloid (Metamucil) 1 packet PO DAILY PRN PRN PRN Reason: Constipation Senna/Docusate Sodium (Senokot-S, Samara-Colace) 2 tablet PO BID PRN PRN PRN Reason: Constipation Sodium Chloride () 10 - 40 ml IV UD PRN PRN Reason: SALINE FLUSH Last Admin: 05/04/20 21:10 Dose: 10 ml Documented by: Throat Lozenges (Cepacol Sore Throat Lozenge) 1 lozenge MUCOUS MEM Q2H PRN PRN PRN Reason: SORE THROAT Medical Necessity - Tobacco Use Smoking Status: Former smoker Tobacco Use: Cigarettes Assessment/Plan All Active Problems (Last Reviewed 08/07/19 @ 09:35 by Chica Aguirre) Sepsis due to pneumonia (Acute) Community acquired pneumonia (Acute) Hypoxemia (Acute) UTI (urinary tract infection) (Acute) Pneumococcal pneumonia (Acute) Severe sepsis (Acute) Shortness of breath (Acute) COPD exacerbation (Acute) Fall at home (Resolved) Hyponatremia (Resolved) RECOMMENDATIONS: 1. Walking oximetry prior to discharge. 2. Continue scheduled bronchodilator therapy. Wean prednisone over the next 12 to 14 days 3. Consider transition to p.o. antibiotics to complete a 7-day course 4. Hold on thoracentesis for now 5. Anticipate need for supplemental oxygen on discharge. Already at home. 6. [facility] protocol. Complete phenobarbital wean. 7. Discharge planning IMPRESSIONS: 1. Acute on chronic hypoxemic respiratory failure The patient has an apparent history of COPD of unknown severity, having never been evaluated by crossbar switch adjuster or having completed pulmonary function studies. He does have an apparent baseline supplemental oxygen requirement of 4 L/min. His x-rays certainly concerning for a potential right lower lobe pneumonia. Therefore, it is reasonable to continue antimicrobials, bronchodilators. Redness zone can be weaned over the next 12 to 14 days. Patient does appear to have a right lower lobe infiltrate with associated effusion on CT scan. Increase activity as tolerated 2. Hyponatremia Unclear if this is chronic or not. This was almost normalized yesterday. Not likely necessary to recheck labs today. Patient appears to be at baseline mentation. 3. Chronic alcohol dependency with active withdrawal Patient has been started on the CIWA protocol. Patient is on folate, thiamine and multivitamin. Patient has not required significant Ativan or Haldol for agitation. Complete phenobarbital wean. Encourage alcohol cessation. 4. History of tobacco dependency/paroxysmal atrial fibrillation/hypertension/hyperlipidemia/anemia Complicates care, management, recovery and prognosis. Continue home medications as indicated. Physical therapy will need to evaluate the patient.
[2020-05-06] MEDS: Ipratropium/Albuterol Sulfate 3 ML AMPUL.NEB INHALATION (11:08)
--- NOTE | 2020-05-06 13:49 | TREXTCAR_ITS ---
- Diet 05/02/20 13:55 Diet: Cardiac - Heart Healthy Food consistency:: Pureed Liquid Consistency:: Regular/Thin Dietary Modifications:: Cardiac / Heart Healthy Is pt able to select menu?: No Diet Comments: 1:1 supervised/feed, small bites, sips by straw WHEN ALERT, meds w/ puree - Routine Orders/Code Status O2 Liters per Minute: 2 O2 Frequency: Continuous Keep PO Greater than or Equal to (%): 90 Code Status: Full Code - Therapies Weight Bearing: Full weight bearing Physical Therapy: Eval and Treat Occupational Therapy: Eval and Treat Speech Therapy: Eval and Treat - Problem/Diagnosis (1) Acute and chronic respiratory failure ([id number]) Status: Chronic (2) Community acquired pneumonia Status: Acute (3) Chronic alcohol abuse Status: Chronic (4) History of atrial fibrillation Status: Chronic (5) Respiratory failure Status: Chronic (6) COPD exacerbation Status: Acute (7) Oropharyngeal dysphagia Status: Acute - Allergies/Procedures Done in Hospital Allergies/Adverse Reactions: Allergies No Known Allergies Allergy (Verified 05/01/20 23:34) Procedures: Intubation, - - VIDEOFLUOROSCOPIC SWALLOW - Type of Care/Length of Stay Estimated LOS: Convalescent Care Less Than 30 days Type of Care Needed: Skilled Rehab Potential: Good Prognosis: Good - Additional Orders/Day of Discharge H&P will serve as current which was dated: 05/02/20 Day of Discharge: 05/06/20 - Dietary and Speech Recommendations Dietitian Recommendations/Changes: Continue Cardiac diet- consistency per SOFTWARE SALES REPRESENTATIVE. Sippy cup/built up utensils provided w/ meals; requiring nursing staff to feed pt at present. - Follow Up Care Primary Care Physician: Brandon Hennessy MD [Primary Care Provider] -
--- NOTE | 2020-05-06 16:03 | CASEMGMT ---
[facility] can take patient. SONAL notified physician. SONAL faxed orders to [facility]. SONAL called patient's daughter Chel and left her a voice mail letting her know patient will be going to [facility] today. SONAL called [facility] and put patient on the will call list for cot transport to [facility]. He has to urinate before he can leave. SONAL will let physician office secretary know as well. Meghna at [facility] is already aware. SONAL will also attempt to call his daughter again. Plan: [facility] under skilled level of care on a convalescent stay. [facility] will transport via cot. Zahra RODRIGUEZ MSW
--- NOTE | 2020-05-06 16:25 | CASEMGMT ---
RN indicated patient urinated. SW called [facility] and arranged for patient to get picked up at 630. SW called Meghna at [facility] and let her know. SW also left a voice mail for patient's daughter. RN was also notified. This SW and ICU SW tried to reach patient's daughter several times without any success. Plan: d/c to [facility] under skilled level of care on a convalescent stay. [facility] transported via cot. Zahra RODRIGUEZ MSW
--- NOTE | 2020-05-07 09:25 | PCM.DC.SUM ---
Discharge Date and Diagnosis - Problem List Patient Problems: Active and Suspected Problems (Last Reviewed 08/07/19 @ 09:35 by Chica Aguirre) Oropharyngeal dysphagia (Acute) Community acquired pneumonia (Acute) COPD exacerbation (Acute) Date of Admission: 05/02/20 Date of Discharge: 05/06/20 - Primary Discharge Diagnosis Acute Problems: Active Problems (Last Reviewed 08/07/19 @ 09:35 by Chica Aguirer) #1 acute on chronic hypoxic respiratory failure #2 COPD exacerbation secondary to community-acquired pneumonia-etiology unclear #3 Acute alcohol withdrawal with DTs #4 paroxysmal A. fib #5 essential hypertension #6 generalized weakness/debility #7 community-acquired gixwtlprg-nrtvrcbee-ylfbqdzj unclear #8 chronic alcoholism #9 oropharyngeal dysphagia #10 hyponatremia secondary to chronic alcoholism - Secondary Discharge Diagnosis Chronic Problems: Chronic Problems (Last Reviewed 08/07/19 @ 09:35 by Chica Aguirre) Anemia (Chronic) Tremor (Chronic) Hyponatremia (Chronic) Acute and chronic respiratory failure ([id number]) (Chronic) Afib (Chronic) Chronic alcohol abuse (Chronic) History of atrial fibrillation (Chronic) Tobacco dependence syndrome (Chronic) History of hypothyroidism (Chronic) Respiratory failure (Chronic) History of COPD (Chronic) Hospital Course and Treatment Operations: None Procedures: - - Videofluoroscopic swallow Summary of Care Provided: The patient is a 85 year old M who was seen in the emergency room at [facility] with a chief complaint of shortness of breath, he also complained of an aching chest pain. Work-up in the emergency room included a chest x-ray which showed patchy opacities of the right lower lobe , stable scarring of the right lung base was also noted. His white blood cell count was normal, blood gases on BiPAP revealed a normal pH, PCO2 is 48 and PO2 was 104. Patient's chemistry profile revealed a glucose of 143 and a sodium of 127 the patient's ethyl alcohol level was 6, COVID-19 test was negative. Patient was admitted to ICU, his oxygen saturation was monitored and he was given IV antibiotics. Patient was seen in consultation by pulmonary medicine, during his stay in the ICU patient became agitated and was hallucinating, he was placed on Ativan and stabilized. Patient was transferred out to PCU and seen in consultation by speech therapy and PT and OT, patient was felt to benefit from inpatient custodial facility placement and agreed to go to a custodial home. Patient's diet was modified by speech therapy due to oropharyngeal dysphagia. On 05/06/2020, patient was seen and examined: On examination he appeared in good health and spirits. Vital signs as documented. Skin warm and dry and without overt rashes. Neck without JVD, neck was supple, trachea midline, thyroid was normal. Lungs clear bilaterally, normal air movement was noted. Heart exam notable for regular rhythm, normal sounds and absence of murmurs, rubs or gallops. Abdomen unremarkable and without evidence of organomegaly, masses, or abdominal aortic enlargement. Bowel sounds are present, abdomen is not distended. Extremities nonedematous, no cyanosis was noted, no clubbing was noted. Neuro: Cranial nerves II through XII are grossly intact, no focal motor deficits were noted, sensation to light touch and pinprick intact, motor exam 5/5 throughout. Psych: Patient is alert and oriented x3, he does not appear anxious or depressed, he does not appear agitated. Patient was discharged to custodial facility on 05/06/2020 in stable condition. Patient Problems: Active and Suspected Problems (Last Reviewed 08/07/19 @ 09:35 by Chica Aguirre) Oropharyngeal dysphagia (Acute) Community acquired pneumonia (Acute) COPD exacerbation (Acute) - Physical Exam Vitals/I&O's: Vital Signs Temp Pulse Resp BP Pulse Ox 98.5 F 80 18 145/77 H 93 05/06/20 16:39 05/06/20 16:39 05/06/20 16:39 05/06/20 16:39 05/06/20 16:39 Oxygen Flow Rate (L/min) 1 Oxygen Delivery Method Nasal Cannula Weight: 80.5 kg Body Mass Index (BMI) 25.3 Intake and Output for Last 24 Hours 05/05/20 05/06/20 05/07/20 23:59 23:59 23:59 Intake Total 1640 / 1640 Output Total 4050 / 4050 2275 / 2275 Balance -2410 / -2410 -2275 / -2275 Microbiology Past 72 Hours 05/01/20 23:50 Blood Culture (Wb) - Anticubital Left Blood Culture - Final No growth in 5 days. 05/02/20 00:15 Blood Culture (Wb) #2 - Left Hand Blood Culture - Final No growth in 5 days. 05/02/20 04:16 Sputum, Expectorated/Coughed Gram Stain - Final 05/02/20 04:16 Sputum, Expectorated/Coughed Respiratory Culture - Final Home Medications: Medications to take at Discharge Albuterol Aerosols [Ventolin Aerosols] 2.5 mg INHALATION Q2H PRN PRN #1 vial.neb. 05/19/19 Albuterol Aerosols [Ventolin Aerosols] 2.5 mg INHALATION Q2H PRN PRN #0 vial.neb. 05/06/20 Amox/Clavulanate Tablet [Augmentin Tablet] 875 mg PO BIDCM #8 tab 05/06/20 Aspirin [Aspirin, Baby] 81 mg PO DAILY@0800 tab.chew 05/06/20 Ipratropium/Albuterol Sulfate [Duoneb] 3 ml INHALATION 4X/DAY #1 ampul.neb 05/06/20 Metoprolol Tartrate [Lopressor (beta luzmaria)] 25 mg PO BID tab 05/06/20 Multivitamins,Ther W-Minerals [Multivitamin With Minerals (BKC)] 1 tab PO DAILYCM tab 05/06/20 Phenobarbital 32.4 mg PO UD #6 tab 05/06/20 predniSONE tablet 20 mg PO UD 9 Days #14 tab 05/06/20 Following Prescriptions Were Given to Patient: Amox/Clavulanate Tablet [Augmentin Tablet] 875 mg PO BIDCM #8 tab Ipratropium/Albuterol Sulfate [Duoneb] 3 ml INHALATION 4X/DAY #1 ampul.neb Phenobarbital 32.4 mg PO UD #6 tab Prescription Printed predniSONE tablet 20 mg PO UD 9 Days #14 tab Primary Care Physician: Brandon Hennessy MD [Primary Care Provider] - Disposition: Assisted facility Minutes spent on discharge:: 32 Patient Condition:: Stable Medical Necessity - Tobacco Use Smoking Status: Former smoker Tobacco Use: Cigarettes Meaningful Use Info Meaningful Use Diagnoses (Choose all that apply): None applicable Inpatient E&M: 53421 Disch Hosp
== END 2020-05-06 19:00 | disposition skilled nursing facility (03) | DRG 193 ==
LOC: ED 05-02 00:28 → MS3 05-02 03:20 → ICU 05-02 05:23 → PCU 05-04 17:35
PROVIDERS: Internal Medicine Critical Care Medicine; Admitting Provider Family Medicine; Emergency Provider Emergency Medicine; PCP Family Medicine; Visit Provider Internal Medicine
DX: J13 Pneumonia due to Streptococcus pneumoniae (principal); J96.21 Acute and chronic respiratory failure with hypoxia; F10.231 Alcohol dependence with withdrawal delirium; E87.1 Hypo-osmolality and hyponatremia; J44.0 Chronic obstructive pulmonary disease with (acute) lower respiratory infection; J44.1 Chronic obstructive pulmonary disease with (acute) exacerbation; Y90.0 Blood alcohol level of less than 20 mg/100 ml; I48.0 Paroxysmal atrial fibrillation; I10 Essential (primary) hypertension; D64.9 Anemia, unspecified; E03.9 Hypothyroidism, unspecified; H91.90 Unspecified hearing loss, unspecified ear; R53.1 Weakness; R53.81 Other malaise; R13.12 Dysphagia, oropharyngeal phase; Z79.82 Long term (current) use of aspirin; Z99.81 Dependence on supplemental oxygen; Z79.899 Other long term (current) drug therapy; Z87.891 Personal history of nicotine dependence
CPT/HCPCS: 36415; 36600; 71045; 71260; 74230; 80048; 80053; 80320; 82803; 83605; 83735; 84100; 84145; 84439; 84443; 84484; 85025; 85379; 87040; 87070; 87205; 87449; 87633; 87635; 92526; 92610; 92611; 93005; 94002; 94640; 97110; 97161; 97165; 97530; 97535; 99285; J7030; J7050; Q9967; A4216; G0480; J0696; U0003

== ENCOUNTER 2020-05-23 01:31 | Emergency (ER) | payer MEDICARE, MEDICAID, SELFPAY ==
[2020-05-02 03:32] VITALS: BMI 25.3
[2020-05-23] VITALS (8 sets, daily range): BP systolic 127–160; BP diastolic 70–85; PULSE 77–87; RESP 14–56; TEMP 36.4–36.6; O2SAT 94–99; BMI 26.2
--- NOTE | 2020-05-23 01:52 | EKG12_ITS ---
Test Reason : SOB Blood Pressure : / mmHG Vent. Rate : 075 BPM Atrial Rate : 069 BPM P-R Int : 000 ms QRS Dur : 066 ms QT Int : 388 ms P-R-T Axes : 000 -43 038 degrees QTc Int : 433 ms Atrial fibrillation Left axis deviation Abnormal ECG Confirmed by MARILYN CORMIER, ROSA ([id number]), primer expeditor and drier MIMA HARLEY ([id number]) on 05/25/2020 11:24:16 AM Referred By: LULU Confirmed By:ROSA SANDERS MD
--- NOTE | 2020-05-23 02:20 | ED.VISSUMM ---
- ER Visit Summary Date of Service: 05/23/20 Chief Complaint: Shortness of breath History of Present Illness: The patient is a 85 M who presents with shortness of breath that became worse today. Patient lives in an extended care facility and they noticed his respirations were increasing tonight. Patient states nothing makes his breathing better or worse. Patient states he just feels short of breath in his chest. Patient admits to a mild sore throat and some mild chest pain. Patient admits to a cough but is unsure of the color of the sputum. Patient denies any fevers or chills. Patient denies any nausea or vomiting. Patient denies any headaches or weakness. Physical Examination: Vital signs are stable except for tachypnea of 56. Patient is afebrile here. Patient is in no acute distress. Oral mucosa is pink and moist. Neck is supple. Trachea is midline. There is no JVD. Heart was regular rate and rhythm. Lungs are diminished bilaterally. There is some mild wheezing noted. Abdomen is soft. Bowel sounds are normal. There is no tenderness. Cranial nerves II through XII are intact. There are no focal motor or sensory deficits. Test Results: EKG showed atrial fibrillation with a rate of 75. There are no acute ST or T wave changes. This was unchanged compared to previous EKG dated 05/02/2020. Portable chest x-ray was obtained. There is a small right pleural effusion and right basilar atelectasis. There is no acute infiltrate noted. This was interpreted by the radiologist and reviewed by myself. CBC and comprehensive metabolic profile were obtained. There is a mild anemia with a hemoglobin of 11.1 and hematocrit of 34.6. PT with INR and PTT were normal. Urinalysis was normal. COVID-19 test was negative. Emergency Department Course and Treatment: Patient was given a DuoNeb aerosol here. Patient was also given a dose of Ativan. Patient's respiratory rate improved to 14. Patient was feeling better on reevaluation. Patient will be discharged back to the extended care facility. Patient was instructed to follow-up with his primary care physician in 5 to 7 days. Patient understood and was agreeable with the plan. All questions were answered. Disposition: Discharge home Impression: 1. Dyspnea This note was generated with [employer] dictation software. It may contain incorrect words, spelling, and punctuation that were not noted in review of the chart prior to signing ED Disposition - Plan for ED Patient: Disposition: Home or Assisted Living Diagnosis: Dyspnea Instructions: ED Dyspnea Referrals: Brandon Hennessy MD [Primary Care Provider] - 2 Days
[2020-05-23 02:25] LABS: Absolute Lymphocyte Count 1.13 X10^3/uL (0.83-4.51); Absolute Neutrophil Count 6.2 X10^3/uL (2.0-7.7); Basophil# 0.08 X10^3/uL; Basophil% 0.9 % (0-1); Eosinophil# 0.38 X10^3/uL; Eosinophils% 4.3 % (0-5); Hematocrit 34.6 % (40-54); Hemoglobin 11.1 g/dL (13.0-16.5); Lymphocyte # 1.13 X10^3/ul (4.0); Lymphocyte % 12.8 % (19-41); Mean Corp Hgb Conc 32.1 g/dL (32-36); Mean Corpuscular Hgb 31.5 pg (27.0-32.0); Mean Corpuscular Volume 98.3 fL (80-94); Monocyte# 1.01 X10^3/uL; Monocyte% 11.4 % (0-10); NRBC Flagged by Analyzer 0 % (0-5); Neutrophil % 70.3 % (47-70); Platelet Count 237 K/mm3 (150-450); RBC Distribution Width CV 14.6 % (11.6-14.6); RBC Distribution Width SD 53.2 fl (35.1-43.9); Red Blood Count 3.52 M/mm3 (4.6-6.2); White Blood Count 8.8 K/mm3 (4.4-11.0)
[2020-05-23 02:33] LABS: Prothrombin Time (Protime)PT. 12.7 SECONDS (11.7-14.9)
[2020-05-23 02:34] LABS: Partial Thromboplast Time 26.8 Seconds (24.1-36.2)
[2020-05-23 02:41] LABS: ALB/GLOB Ratio 0.8 RATIO (0.9-2.4); AST(SGOT) 14 U/L (15-37); Alanine Aminotransfer ALT/SGPT 28 U/L (16-61); Alkaline Phosphatase 58 U/L (45-117); Anion Gap 6 (5-15); BUN 11 mg/dL (7-18); BUN/Creat Ratio 17.7 RATIO (10-20); Calcium,Total 8.7 mg/dL (8.5-10.1); Chloride 97 mmol/L (98-107); Creatinine, Serum 0.62 mg/dL (0.70-1.30); EST Glomerular Filtration Rate 131 mL/min (>60); Est Glom Filt Rate - Afr Amer 158 mL/min (>60); Estimated Creatinine Clearance 57.52 ml/min; Globulin 3.6 g/dL (2.2-4.2); Glucose 103 mg/dL (74-106); Potassium 4.2 mmol/L (3.5-5.1); Protein, Total 6.6 g/dL (6.4-8.2); Sodium Level 135 mmol/L (136-145)
--- NOTE | 2020-05-23 02:42 | RAD_ITS ---
HISTORY: DYSPNEA. Increased SOB per report from [facility]. Pt was treated for pneumonia several weeks ago EXAMINATION/TECHNIQUE: XR Chest 1 View: Portable upright COMPARISON: 05/02/2020 FINDINGS: Normal heart size. Small right pleural effusion similar in size compared to recent exam and with right basilar passive atelectasis. Small loculated fluid within the right major fissure, not seen previously, and this is potentially positional in origin. Previously seen left basal septal interstitial thickening is improved. Right midlung and right basilar opacity which appears primarily related to edema. No pulmonary consolidation. Atherosclerotic thoracic aorta. No pneumothorax. Bilateral remote rib fractures. RAD/Chest 1 View (Portable) IMPRESSION: Small right pleural effusion and right basilar passive atelectasis, similar to prior and with asymmetric edema type pattern at the mid and lower right lung. Prior left basal septal edema is improved. at 0411 Reported and signed by: Salvatore Alvarado MD Electronically Signed: Salvatore Alvarado, at 4:10 EST Tel , Service support ,
[2020-05-23 02:50] LABS: Lactic Acid 0.9 mmol/L (0.4-1.9)
[2020-05-23 03:16] LABS: Bacteria 0 SEEN /hpf (None Seen); Mucous, Urine 0 SEEN /hpf (<or=2+); Red Blood Cells-Urine 0 SEEN /hpf (0-5); Squamous Epithelial Cells - UA 0 SEEN /hpf (0-5)
[2020-05-23 03:20] LABS: Color, Urine Yellow (Yellow); Glucose, Dipstick Normal (Normal); Ketone-Dipstick Negative (Negative); Leukocyte Esterase-Dipstick 25 /ul (Negative); Nitrite-Dipstick Negative (Negative); Occult Blood-Urine Negative /ul (Negative); Protein-Dipstick Negative (Negative); Urine Bilirubin Dipstick Negative (Negative); Urine Clarity Sl. Cloudy (Clear); Urine Urobilinogen Normal (Normal)
[2020-05-23] MEDS: Ipratropium/Albuterol Sulfate 3 ML AMPUL.NEB INHALATION (03:21)
[2020-05-23 03:27] LABS: White Blood Cells 0-5 SEEN /hpf (0-5)
[2020-05-23] MEDS: LORazepam 2 MG/ML Syringe 0.5 MG IV (04:25)
--- NOTE | 2020-05-23 05:47 | ED.RN ---
REPORT CALLED TO FELTON ZAMARRIPA A CC. INFORMED OF RESULTS AND PLAN OF CARE.
== END 2020-05-23 05:57 | disposition home or self-care (01) ==
PROVIDERS: Emergency Provider Emergency Medicine; PCP Family Medicine
DX: R06.02 Shortness of breath (principal); J90 Pleural effusion, not elsewhere classified; I48.91 Unspecified atrial fibrillation; J44.9 Chronic obstructive pulmonary disease, unspecified; Z87.01 Personal history of pneumonia (recurrent); Z79.82 Long term (current) use of aspirin; Z79.899 Other long term (current) drug therapy; Z72.0 Tobacco use
CPT/HCPCS: 71045; 80053; 81001; 83605; 84484; 85025; 85610; 85730; 87040; 87086; 87088; 87633; 87635; 93005; 94640; 96361; 96374; 99285; J7030; A4216; U0002

== ENCOUNTER 2020-07-09 12:45 | Emergency (ER) | payer MEDICARE, MEDICAID, SELFPAY ==
[2020-05-23 01:32] VITALS: BMI 26.2
[2020-07-09 12:51] VITALS: BP 156/95; PULSE 86; RESP 24; TEMP 36.7; O2SAT 98; BMI 24.1
[2020-07-09 12:59] VITALS: BP 156/95; PULSE 82; RESP 21; TEMP 36.7; O2SAT 98
--- NOTE | 2020-07-09 13:28 | ED.DCSUM_ITS ---
- ER Visit Summary Date of Service: 07/09/20 Chief Complaint: Shortness of breath and chest pain History of Present Illness: The patient is a 85 M presents with shortness of breath and chest pain that began today. Patient states it felt like it was hard to breathe. Patient states he was having some pain in his chest at that time. Patient is in hospice. Patient called the hospice nurse but also called EMS. Patient took 2 albuterol treatments at home. Patient was given albuterol treatment by EMS. Patient states he is starting to feel better. Patient states this began when he was ambulating to the bathroom. Patient admits to a slight cough. Patient also admits to some rhinorrhea. Physical Examination: Vital signs are stable except for mild tachypnea of 24. Patient is afebrile. Patient is in no acute distress. Oral mucosa is pink and moist. Neck is supple. Trachea is midline. There is no JVD noted. Heart was regular rate and rhythm. Lungs are clear but diminished bilaterally. Abdomen is soft. Bowel sounds are normal. There is no tenderness. There is no rebound or guarding noted. Skin is warm dry. Cranial nerves II through XII are intact. There are no focal motor or sensory deficits noted. Extremities are intact. There is no calf tenderness or edema. Test Results: Portable 1 view chest x-ray was obtained. On my interpretation, lung berry show chronic changes but no acute infiltrate. There is normal cardiac silhouette. Bony thorax is normal. There is no acute process noted. Radiologist also interpreted the x-ray and agrees. COVID-19 rapid antigen test was obtained and was negative. Emergency Department Course and Treatment: Patient is feeling better on reevaluation. Patient will be discharged home. Patient was instructed to follow-up with his primary care physician in 5 to 7 days. Patient understood and was agreeable with the plan. All questions were answered. Disposition: Discharge home Impression: 1. Acute anxiety This note was generated with [employer] dictation software. It may contain incorrect words, spelling, and punctuation that were not noted in review of the chart prior to signing ED Disposition - Plan for ED Patient: Disposition: Home or Assisted Living Diagnosis: Acute anxiety Instructions: ED Anxiety Reaction Referrals: Brandon Hennessy MD [Primary Care Provider] - 5-7 Days
--- NOTE | 2020-07-09 13:50 | RAD_ITS ---
STUDY: X-RAY CHEST REASON FOR EXAM: Male, 85 years old. SOB, CP TECHNIQUE: Single AP portable view of the chest. COMPARISON: Comparison is made with prior study dated 05/23/2020. FINDINGS: EKG electrodes are seen. Hyperinflation. Since prior study, there has been improved aeration of both lungs more prominent in the right lower lobe. Residual linear markings persist suggestive of a scarring. There is no demonstrated pleural abnormality. Normal size heart. Normal mediastinum and gen. Normal visualized pulmonary arteries. There is atherosclerotic calcification of the aortic arch with tortuosity. Normal visualized thoracic spine. Normal visualized ribs, clavicles, and shoulders. There is no demonstrated abnormality of the visualized soft tissue structures of the upper abdomen. RAD/Chest 1 View (Portable) IMPRESSION: Improved aeration of both lungs as compared to prior study although persistent increased markings are seen at the lung bases suggestive of bibasilar scarring. Hyperinflation. Electronically Signed: Mario Thompson, at 14:30 EST , Service support ,
[2020-07-09 14:51] VITALS: BP 141/76; PULSE 96; RESP 22; O2SAT 95
[2020-07-09 15:23] VITALS: PULSE 101; RESP 24; O2SAT 95
== END 2020-07-09 16:05 | disposition home or self-care (01) ==
PROVIDERS: Emergency Provider Emergency Medicine; PCP Family Medicine
DX: F41.9 Anxiety disorder, unspecified (principal); Z51.5 Encounter for palliative care; Z87.891 Personal history of nicotine dependence
CPT/HCPCS: 71045; 87426; 99285